=== PATIENT | female | born 1960 | race Caucasian/White ===

== ENCOUNTER 2019-11-05 10:24 | Outpatient (CLI) | payer MEDICARE, SELFPAY ==
--- NOTE | ~2019-11-05 | XR_ITS ---
EXAMINATION:XR_CERV2-3V_CR DATE: 11/05/2019 10:51 INDICATION: Neck pain and radiculopathy TECHNIQUE: AP, lateral, lateral swimmers and odontoid views of the cervical spine are provided. COMPARISON: None FINDINGS: There are 2 mm of retrolisthesis of C3 on C4. Vertebral body alignment is otherwise maintai ricky. There are changes of anterior fusion at C5-6 and C6-7. The odontoid is intact. No fracture is id entified. The vertebral body heights are normal. There is mild loss of intervertebral disc space heig ht at C3-4. Prevertebral soft tissues are normal. There is severe facet osteoarthritis at C3-4 and C4 -5. IMPRESSION: 1. Mild to moderate upper cervical spondylosis. 2. Changes of anterior fusion in the lower cervical spine. Reviewed, dictated and finalized at location A.
== END 2019-11-05 10:25 | disposition home or self-care (01) ==
PROVIDERS: PCP Physician Assistant; Visit Provider Physician Assistant
DX: M54.12 Radiculopathy, cervical region (principal)
CPT/HCPCS: 72040

== ENCOUNTER 2019-11-26 06:35 | Outpatient (CLI) | payer MEDICARE, SELFPAY ==
--- NOTE | ~2019-11-26 | MR_ITS ---
EXAMINATION: MR cervical spine wo con DATE: 11/26/2019 08:04 INDICATION: Cervical spinal stenosis. TECHNIQUE: Magnetic resonance imaging (MRI) of the cervical spine was performed without intravenous c ontrast. Sequences included sagittal T2-weighted FSE, sagittal T2-weighted FS FSE, sagittal T1-weight ed FSE, axial MERGE, and axial T2-weighted FSE. COMPARISON: Cervical spine radiographs 11/05/2019 FINDINGS: There is 2 mm retrolisthesis of C3 on C4. There are changes of anterior fusion procedure fr om C5 to C7. There is healed interbody bone graft at C5-C6. There is an anterior plate and screws at C6-C7. There is mildly decreased disc height at C3-C4. At C6, there is syringohydromyelia with diamet er of 1 mm. The following disc levels are specifically discussed: C2-C3: The disc does not extend beyond the endplate margin. There is no uncovertebral joint osteoarth ritis. There is moderate right and mild left facet joint osteoarthritis. There is no neural foraminal stenosis. There is no central canal stenosis. C3-C4: The disc is bulging. There is moderate right and mild left uncovertebral joint osteoarthritis. There is moderate right and severe left facet joint osteoarthritis. There is moderate right and mild left neural foraminal stenosis. There is mild central canal stenosis with ventral indentation of the spinal cord. C4-C5: The disc does not extend beyond the endplate margin. There is no uncovertebral joint osteoarth ritis. There is moderate right and severe left facet joint osteoarthritis. There is mild left neural foraminal stenosis. There is no central canal stenosis. C5-C6: There is no uncovertebral joint hypertrophy. There is no facet joint osteoarthritis. There is no neural foraminal stenosis. There is no central canal stenosis. C6-C7: There is mild bilateral uncovertebral joint hypertrophy. There is mild left facet joint osteoa rthritis. There is no neural foraminal stenosis. There is no central canal stenosis. C7-T1: The disc does not extend beyond the endplate margin. There is no uncovertebral joint osteoarth ritis. There is severe bilateral facet joint osteoarthritis. There is mild bilateral neural foraminal stenosis. There is no central canal stenosis. IMPRESSION: 1. Moderate cervical spondylosis. 2. Anterior fusion procedures from C5 to C7. 3. 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 Reviewed, dictated and finalized at location A.
== END 2019-11-26 06:36 | disposition home or self-care (01) ==
LOC: CHSIMG 06:37
PROVIDERS: PCP Physician Assistant; Visit Provider Physician Assistant
DX: M48.02 Spinal stenosis, cervical region (principal)
CPT/HCPCS: 72141

== ENCOUNTER 2019-12-24 13:49 | Outpatient (RCR) | payer MEDICARE, SELFPAY ==
--- NOTE | 2019-12-24 14:52 | PTOPEVAL ---
Thank you for referring Janice Chavez to [facility]– [place]. Please review, sign, date and return this plan of care SHAMIR. I agree with and certify that the following plan of care is medically necessary. Referring Physician Date Admitting Provider: Attending Provider: PHYSICIAN NOT ON STAFF Referring Provider: *PT Outpatient Evaluation Start: 12/24/19 13:59 Freq: Status: Active Protocol: Document 12/24/19 14:02 LUCÍA (Rec: 12/24/19 14:38 [facility] [id number]) Therapy Assessment Status Assessment Status Assessment Status Evaluation Evaluation Information Problem Diagnosis neck pain Onset 12/17/19 Subjective Information patient reports about 3 months Query Text:As Reported By Patient/ ago she began having pain and Family pins and needles in the jaw and down the neck into the R shoulder. she reports she had an injection yesterday. she reports pins and needles are back as of 3 hours post injection. she reports she is unaware of any activities or positions that create greater pain. she does reports leaning to her R side is worse and leaning to her L side helps relieve some of the symptoms. she reports she had a change in insurance and was not able to see her previous spinal MD. patient reports she has a headache that comes and goes. she reports only pain free position is laying on her L side. Prior Level of Function Comments Additional Prior Level of Function prior to 3 months ago, no Comments issues with the neck, but patient reports she did have back pain. she reports she is on disability. she reports she cares for a house and for her grandkid on a daily basis. Pain Assessment Timing of Pain Assessment Timing of Pain Assessment Assessment Pain Scale Pain Scale Used Numeric (1 - 10) Self Report Pain Assessment Right Neck Reported Pain Level 5 Pain Description Tingling Pain Frequency Acute,Continuous Lowest Pain Intensity 3 Greatest Pain Intensity 8
== END 2020-01-22 09:11 | disposition home or self-care (01) ==
LOC: CHSPT 13:49
DX: M54.2 Cervicalgia (principal)
CPT/HCPCS: 97014; 97110; 97140; 97161; G0283

== ENCOUNTER 2020-01-29 07:57 | Outpatient (RCR) | payer MEDICARE, SELFPAY ==
--- NOTE | 2020-01-29 16:49 | PTOPEVAL ---
Thank you for referring Janice Chavez to [facility] - [place].? The patient is scheduled to be seen for therapy? ____x/week for ___ weeks. Please review, sign, date and return this plan of care SHAMIR. I agree with and certify that the following plan of care is medically necessary. Referring Physician Date Admitting Provider: Attending Provider: Josue Jordan, PA Referring Provider: *PT Outpatient Evaluation Start: 01/29/20 08:01 Freq: Status: Active Protocol: Document 01/29/20 08:32 TOSHIA (Rec: 01/29/20 09:05 [facility] [email or web address]) Therapy Assessment Status Assessment Status Assessment Status Evaluation Evaluation Information Problem Diagnosis dorsalgia Onset 11/27/19 Subjective Information Pt. reports a hx of chronic Query Text:As Reported By Patient/ low back pain. she states Family that pain started several years ago and has hx of 2 lumbar fusions. She reports that she has been inactive as of recently, especially the past 2 months since her back pain has flared up. she reports that she cannot sleep at night. Pain is increased with any standing activity, and she cannot complete basic household duties. she reports her goal is to decrease her low back pain. Prior Level of Function Activity Level (Last 3 Months) Occupation disabled Hand Dominance Right Activity of Daily Living Ability Independent Indoor/Home Mobility Independent Community Mobility Independent Stairs Ability Independent Functional Cognition (Planning, Shopping Independent , Taking Medications) Cooking Yes Cleaning Yes Laundry Yes Shopping Yes Driving Yes Pain Assessment Pain Scale Pain Scale Used Numeric (1 - 10) Self Report Pain Assessment Lower Back Reported Pain Level 8 Pain Description Numbness,Sharp Pain Radiation Left Leg Pain Frequency Chronic,Continuous Pain Aggravating Factors Exercise/Activity,Walking, Weight Bearing/Standing Pain Behaviors Restless Pain Relief Interventions Used By Prema Patient Pain Score Pain Score 8: S
--- NOTE | 2020-02-26 12:47 | PCPTNOTE ---
Mrs. Chavez attended a total of 3 treatment sessions from 01/29/20 to 02/03/20. She has failed to return to the clinic and cannot be contacted via telephone. Refer to the last daily note for pt. discharge status. Thank you for the referral of this pt. Ashish Conley, MPT
== END 2020-02-03 17:09 | disposition home or self-care (01) ==
LOC: CHSPT 07:57
PROVIDERS: PCP Physician Assistant; Visit Provider Physician Assistant
DX: M54.9 Dorsalgia, unspecified (principal)
CPT/HCPCS: 97014; 97110; 97161; G0283

== ENCOUNTER 2020-03-11 08:02 | Outpatient (CLI) | payer MEDICARE, SELFPAY ==
--- NOTE | ~2020-03-11 | MR_ITS ---
EXAMINATION: MR lumbar spine wo/w con DATE: 03/11/2020 09:32 INDICATION: Lumbar radicular pain radiating to the left leg with numbness and tingling. TECHNIQUE: Magnetic resonance imaging (MRI) of the lumbar spine was performed without and with 20 mL MultiHance intravenous contrast. Sequences included sagittal T2-weighted FSE, sagittal T2-weighted FS FSE, and sagittal and axial T1-weighted FSE. Postcontrast sequences included axial T2-weighted FSE a nd axial and sagittal T1-weighted FS FSE. COMPARISON: Lumbar spine MRI 09/29/2018 FINDINGS: There is 13 degrees dextroscoliosis of lumbar spine. There is 3 mm retrolisthesis of L1 on L2 and 7 mm retrolisthesis of L2 on L3. There is 3 mm retrolisthesis of L5 on S1. There are changes o f anterior and posterior fusion procedures from L4 to S1 with interbody bone graft and pedicle screws . There is a chronic compression fracture of T12 with 1/5 loss of height. There is moderately decreas ed disc height at L1-L2 and severely decreased disc height at L2-L3. There are compression fractures of the inferior endplate of L2 and superior endplate of L3 on the left with less than 1/5 loss of hei ght, low signal fracture lines, and bone marrow edema. The distal spinal cord signal intensity is nor mal. The conus medullaris is at L1-L2. The following disc levels are specifically discussed: L1-L2: The disc is bulging. There is mild bilateral facet joint osteoarthritis. There is mild bilater al neural foraminal stenosis. There is mild central canal stenosis. L2-L3: The disc is bulging and has an annular fissure. There is moderate right and mild left facet robbie int osteoarthritis. There is moderate bilateral neural foraminal stenosis. There is mild central alana l stenosis with posterior decompression. L3-L4: The disc is mildly bulging. There is mild bilateral facet joint hypertrophy. There is mild elisa ateral neural foraminal stenosis. There is no central canal stenosis. L4-L5: There is no facet joint hypertrophy. There is mild right neural foraminal stenosis. There is n o central canal stenosis with posterior decompression. L5-S1: There is no facet joint hypertrophy. There is mild bilateral neural foraminal stenosis. There is no central canal stenosis with posterior decompression. IMPRESSION: 1. Compression fractures of the inferior endplate of L2 and superior endplate of L3, likely acute or subacute. 2. Severe lumbar spondylosis with interval worsening at L2-L3. 3. Anterior and posterior fusion procedures from L4 to S1. Reviewed, dictated and finalized at location A. IMPRESSION: 1. Compression fractures of the inferior endplate of L2 and superior endplate o f L3, likely acute or subacute. 2. Severe lumbar spondylosis with interval worsening at L2-L3. 3. Anterior and posterior fusion procedures from L4 to S1.
[2020-03-11 08:31] LABS: Estimated Glomerular Filt Rate 56
== END 2020-03-11 08:03 | disposition home or self-care (01) ==
LOC: CHSIMG 08:05
PROVIDERS: Pain Medicine Pain Medicine; PCP Physician Assistant
DX: M54.16 Radiculopathy, lumbar region (principal)
CPT/HCPCS: 72158; A9577

== ENCOUNTER 2020-05-07 09:58 | Outpatient (CLI) | payer MEDICARE, SELFPAY ==
--- NOTE | ~2020-05-07 | CT_ITS ---
EXAMINATION: CT cervical spine wo con DATE: 05/07/2020 10:24 INDICATION: Neck pain. Right arm and shoulder numbness and tingling. TECHNIQUE: Computed tomography (CT) of the cervical spine was performed without intravenous contrast. Automated exposure control and iterative reconstruction technique were employed. The dose-length pro duct was 495.45 mGy-cm. COMPARISON: Cervical spine MRI 11/26/2019 FINDINGS: There is 3 degrees dextrocurvature of cervical spine. There are changes of anterior fusion procedure at C5-C6 with discectomies and healed interbody bone graft. There are changes of anterior f usion procedure at C6-C7 with discectomy, interbody bone graft, and anterior plate and screws. There is no definite bridging interbody bone. There is a benign bone island in C3 vertebral body. Vertebral body heights are normal. There is mildly decreased disc height at C3-C4. The following disc levels a re specifically discussed: C2-C3: There is no uncovertebral joint osteoarthritis. There is severe bilateral facet joint osteoart hritis. There is no neural foraminal stenosis. There is no central canal stenosis. C3-C4: There is severe right and mild left uncovertebral joint osteoarthritis. There is severe bilate ral facet joint osteoarthritis. There is mild bilateral neural foraminal stenosis. There is no centra l canal stenosis. C4-C5: There is mild bilateral uncovertebral joint osteoarthritis. There is severe bilateral facet robbie int osteoarthritis. There is mild left neural foraminal stenosis. There is no central canal stenosis. C5-C6: There is no uncovertebral joint hypertrophy. There is no facet joint osteoarthritis. There is no neural foraminal stenosis. There is no central canal stenosis. C6-C7: There is mild bilateral uncovertebral joint hypertrophy. There is mild bilateral facet joint o steoarthritis. There is no neural foraminal stenosis. There is no central canal stenosis. C7-T1: There is no uncovertebral joint osteoarthritis. There is severe bilateral facet joint osteoart hritis. There is mild left neural foraminal stenosis. There is no central canal stenosis. IMPRESSION: 1. Anterior fusion procedures from C5 to C7 with bridging interbody bone at C5-C6, but not at C6-C7. 2. Moderate cervical spondylosis. Reviewed, dictated and finalized at location A. T DESIGNER IMPRESSION: 1. Anterior fusion procedures from C5 to C7 with bridging interbody bone at C5- C6, but not at C6-C7. 2. Moderate cervical spondylosis.
== END 2020-05-07 09:59 | disposition home or self-care (01) ==
LOC: CHSIMG 10:02
PROVIDERS: PCP Physician Assistant; Visit Provider Nurse Practitioner Acute Care
DX: M54.2 Cervicalgia (principal)
CPT/HCPCS: 72125

== ENCOUNTER 2020-06-11 12:34 | Outpatient (CLI) | payer MEDICARE, SELFPAY ==
--- NOTE | ~2020-06-11 | DEXA_ITS ---
Bone Density Report Name: Janice Chavez Age: 59 Sex: Female Ethnicity: White Date of : 1960 Indication: postmenopausal; screening for osteoporosis; prior fracture; hysterectomy; Referring Provider: Nikki, Josue Duarte Study: Bone densitometry was performed. Exam Date: June 11, 2020 Accession number: [id number] Bone Density: Region BMD T-score Z-score Classification Femoral Neck (Right) 0.843 -0.1 1.3 Normal Total Hip (Right) 0.826 -0.9 0.1 Normal World Health Organization criteria for BMD impression classify patients as: Normal (T-score at or above -1.0), Osteopenia (T-score between -1.0 and -2.5), or Osteoporosis (T-score at or below -2.5). Clinical Information Provided by Patient: Have had a previous hip or vertebral fracture Has had a low trauma fracture Has used the following medications: Vitamin D, Calcium Has the following medical conditions: Hysterectomy Patient maximum height was 66 Menopause Age: 33 No regular weight bearing exercise Drinks caffeinated beverages Onset of menses at age 10 Number of children 2 Impression: The patient has normal bone mass. The patient has risk factors, including: previous fracture. Discussion: INCREASED RISK OF FRACTURE DUE TO HISTORY OF FRACTURE. The patient's previous fracture puts the patient at high risk of a future fracture. In untreated patients, the risk of osteoporotic fracture increases approximately two-fold for each 1.0 SD decrease in T-score. Low bone density is not the only risk factor for fracture; also consider factors such as patient's age, frailty or poor health, risk of falling, risk of injury, previous osteoporotic fracture, family history of osteoporosis, cigarette smoking, low body weight, etc. Not everyone with a low trauma fracture has osteoporosis; osteomalacia and other metabolic bone disorders should also be considered. Patients who have osteoporosis should be evaluated for specific diseases and conditions (secondary causes) that may cause or contribute to bone loss and fracture risk. National Osteoporosis Foundation (NOF) recommends pharmacologic intervention for patients with a prior hip or vertebral fracture regardless of BMD T-score. The patient should follow a healthful lifestyle (good nutrition with adequate calcium and vitamin D, and appropriate weight-bearing exercise). Follow-Up: Consider a repeat BMD and Vertebral Fracture Assessment (VFA) exam in 2 years or sooner if medically necessary, to reassess this patient's status. Reported by: Dr. Devan Mancilla on 06/11/2020 1:40:00 PM. Reviewed, dictated and finalized at location A. [facility]
== END 2020-06-11 12:35 | disposition home or self-care (01) ==
LOC: CHSIMG 12:35
PROVIDERS: PCP Physician Assistant; Visit Provider Physician Assistant
DX: Z78.0 Asymptomatic menopausal state (principal)
CPT/HCPCS: 77080

== ENCOUNTER 2020-06-16 12:18 | Outpatient (CLI) | payer MEDICARE, SELFPAY ==
--- NOTE | ~2020-06-16 | MM_ITS ---
EXAMINATION: MM screening alex BI w nancy HISTORY: Screening TECHNIQUE: Craniocaudal and mediolateral oblique 3-D tomosynthesis images were obtained and synthetic 2-D images were generated. CAD analysis was submitted and interpreted. COMPARISON: No prior mammogram is available for comparison at this institution. BREAST PARENCHYMAL COMPOSITION: There are scattered areas of fibroglandular density. FINDINGS: There is no evidence of suspicious mass, calcification, or architectural distortion to sugg est malignancy in either breast. There has been no suspicious interval change. IMPRESSION: 1. No mammographic evidence of malignancy. 2. Recommend routine screening mammography in one year. BI-RADS Category 1: Negative Reviewed, dictated and finalized at location A. ATION COMMISSIONER
== END 2020-06-16 12:19 | disposition home or self-care (01) ==
LOC: CHSIMG 12:18
PROVIDERS: PCP Physician Assistant; Visit Provider Physician Assistant
DX: Z12.31 Encounter for screening mammogram for malignant neoplasm of breast (principal)
CPT/HCPCS: 77063; 77067

== ENCOUNTER 2020-09-01 08:42 | Outpatient (CLI) | payer MEDICARE, SELFPAY ==
--- NOTE | ~2020-09-01 | XR_ITS ---
EXAMINATION:XR_CERV2-3V_CR DATE: 09/01/2020 09:07 INDICATION: Cervicalgia TECHNIQUE: AP, lateral, and odontoid views of the cervical spine are provided. COMPARISON: 11/05/2019 FINDINGS: There are changes of interval anterior fusion at C3-4. There are chronic changes of anterio r fusion at C5-6 and C6-7. There are 3 mm of retrolisthesis of C3 on C4. There is mild loss of interv ertebral disc space height at C4-5. The odontoid is intact. No fracture is identified. There is sever e facet osteoarthritis. IMPRESSION: 1. Changes of interval anterior fusion at C3-4 and 3 mm of retrolisthesis of C3 on C4, otherwise no c hange. Reviewed, dictated and finalized at location B. IMPRESSION: 1. Changes of interval anterior fusion at C3-4 and 3 mm of retrolisthesis of C3 on C4, otherwise no change.
== END 2020-09-01 08:43 | disposition home or self-care (01) ==
LOC: CHSIMG 08:47
PROVIDERS: PCP Physician Assistant; Visit Provider Neurological Surgery
DX: M54.2 Cervicalgia (principal); Z98.1 Arthrodesis status
CPT/HCPCS: 72040

== ENCOUNTER 2020-09-29 09:38 | Outpatient (CLI) | payer MEDICARE, SELFPAY ==
--- NOTE | ~2020-09-29 | XR_ITS ---
EXAMINATION: XR hip RT 2V w AP pelvis DATE: 09/29/2020 09:56 INDICATION: Right hip catching feeling TECHNIQUE: Anteroposterior view of the pelvis and anteroposterior and frog-leg lateral views of the r ight hip were obtained. COMPARISON: None. FINDINGS: Normal alignment at the right hip. No fracture or suspected avascular necrosis. Right hip joint space is relatively preserved with tiny marginal osteophytes about the right femoral head and acetabulum. Bilateral sacroiliac joint spaces are normal. Partially visualized noncemented left total hip arthrop lasty which is in near-anatomic alignment. L5 laminectomy and partial L4 laminectomy. Combined instru mented anterior and posterior spinal fusion at L4-L5 and L5-S1 with interbody bone graft cages and bi lateral vertical luis and pedicle screw fixation. L3 vertebroplasty. IMPRESSION: 1. Mild right hip osteoarthritis with tiny marginal osteophytes but relatively preserved joint space. Reviewed, dictated and finalized at location A.
== END 2020-09-29 09:39 | disposition home or self-care (01) ==
LOC: CHSIMG 09:43
PROVIDERS: PCP Physician Assistant; Visit Provider Orthopaedic Surgery
DX: M25.551 Pain in right hip (principal)
CPT/HCPCS: 73502

== ENCOUNTER 2020-10-06 09:54 | Outpatient (RCR) | payer MEDICARE, SELFPAY ==
--- NOTE | 2020-10-06 12:29 | PTOPEVAL ---
Thank you for referring Janice Chavez to [facility].? The patient is scheduled to be seen for therapy? ____x/week for ___ weeks. Please review, sign, date and return this plan of care SHAMIR. I agree with and certify that the following plan of care is medically necessary. Referring Physician Date Admitting Provider: Attending Provider: Jas Gutierrez MD Referring Provider: *PT Outpatient Evaluation Start: 10/06/20 10:11 Freq: Status: Active Protocol: Document 10/06/20 10:00 Geeta (Rec: 10/06/20 11:38 [facility] [id number]) Therapy Assessment Status Assessment Status Assessment Status Evaluation Evaluation Information Problem Diagnosis R hip OA Onset 09/29/20 Additional Evaluation Detail LEFS = 72% functionally declined Subjective Information Janice Chavez is a 59 year old Query Text:As Reported By Patient/ female who presents to the Family clinic with increased R hip pain. She was diagnosed with hip OA after a recent xray order by her referring physician. She has been diagnosed with OA in multiple other joints in the past including her left hip which has had a CELIA in the past. Patient wishes to have another CELIA performed in her L hip but is trying therapy before a more invasive option is decided on. She has not had any injections in her right hip as of this date. Patient wishes to be able to walk 2 blocks to the bookstore near her apartment and back home. She lives alone in her apartment with her 7 month old puppy and reports difficulty ambulating in her home and ascending/descending stairs to enter her home. She reports taking 4 tylenols prior to coming to therapy this morning . Prior Level of Function Comments Additional Prior Level of Function Patient is no longer working, Comments but wishes to ambulate in her home with decreased pain, and ambulate further in the
== END 2020-11-04 09:39 | disposition home or self-care (01) ==
LOC: CHSPT 09:54
PROVIDERS: PCP Physician Assistant; Visit Provider Orthopaedic Surgery
DX: M16.11 Unilateral primary osteoarthritis, right hip (principal)
CPT/HCPCS: 97014; 97110; 97161; 97530; G0283

== ENCOUNTER 2020-10-27 12:47 | Outpatient (CLI) | payer MEDICARE, SELFPAY ==
--- NOTE | ~2020-10-27 | XR_ITS ---
EXAMINATION: XR_CERV2-3V_CR DATE: 10/27/2020 13:35 INDICATION: Neck pain. TECHNIQUE: 3 views of cervical spine were obtained. COMPARISON: Cervical spine radiographs 09/01/2020 FINDINGS: There is 3 mm retrolisthesis of C3 on C4. There are changes of anterior fusion procedure at C3-C4 with discectomy, interbody bone graft, and anterior plate and screws. There is a solidly heale d interbody fusion at C5-C6. There are changes of anterior fusion procedure at C6-C7 with discectomy, interbody bone graft, and anterior plate and screws. Other intervertebral disc heights are normal. T here is mild central canal stenosis at C3-C4. There is multilevel facet joint osteoarthritis, severe at C6-C7 and C7-T1. IMPRESSION: 1. Stable mild cervical spondylosis. 2. Anterior fusion procedures at C3-C4 and from C5 to C7. Reviewed, dictated and finalized at location A.
== END 2020-10-27 12:48 | disposition home or self-care (01) ==
PROVIDERS: PCP Physician Assistant; Visit Provider Neurological Surgery
DX: M54.2 Cervicalgia (principal); Z98.1 Arthrodesis status
CPT/HCPCS: 72040

== ENCOUNTER 2020-12-22 10:29 | Outpatient (CLI) | payer MEDICARE, SELFPAY ==
[2020-12-22 11:12] LABS: Alanine Aminotransferase 24 U/L (14-59); Albumin Level 3.4 g/dL (3.4-5.0); Alkaline Phosphatase 111 U/L (46-116); Anion Gap 11 mmol/L (8-16); Aspartate Amino Transferase 14 U/L (15-37); Bilirubin,Total 0.2 mg/dL (0.00-1.00); Blood Urea Nitrogen 10 mg/dL (7-18); Calcium 8.9 mg/dL (8.5-10.1); Carbon Dioxide 27 mmol/L (21-32); Chloride 104 mmol/L (98-108); Estimated Glomerular Filt Rate > 60; Glucose 100 mg/dL (70-99); Lipase 67 U/L (73-393); Osmolality Calculated 293 mOsm/kg (285-295); Potassium 4.8 mmol/L (3.5-5.1); Sodium 142 mmol/L (136-145); Total Protein 7.5 g/dL (6.4-8.2)
== END 2020-12-22 10:30 | disposition home or self-care (01) ==
PROVIDERS: PCP Physician Assistant
DX: R11.0 Nausea (principal)
CPT/HCPCS: 36415; 80053; 83690

== ENCOUNTER 2020-12-22 12:33 | Emergency (ER) | payer MEDICARE, SELFPAY ==
[2020-12-22 12:50] VITALS: BP 110/61; PULSE 85; RESP 20; TEMP 36.6; O2SAT 95
--- NOTE | 2020-12-22 12:52 | ED.GENADULT ---
HPI - General Adult General Chief complaint: Recheck/Abnormal Lab/Rx Stated complaint: took double of her meds Source: patient and RN notes reviewed Mode of arrival: ambulatory Limitations: no limitations History of Present Illness HPI narrative: Patient states she accidentally took another dose of her daily medications including bupropion, atenolol 50 mg, pantoprazole, amlodipine 5 mg. she is concerned that her blood pressure might drop out. She has no other complaints. She denies being dizzy, short of breath , or lightheaded. Onset (ago): minute(s) (30) Associated symptoms: denies other symptoms Related Data Home Medications Medication Instructions Recorded Confirmed amlodipine 5 mg tablet 5 mg PO DAILY 09/29/20 12/22/20 atenolol 50 mg tablet 50 mg PO DAILY 09/29/20 12/22/20 bupropion HCl 300 mg 24 hr tablet, 300 mg PO QAM 09/29/20 12/22/20 extended release pantoprazole 40 mg PO DAILY 12/22/20 12/22/20 Allergies Allergy/AdvReac Type Severity Reaction Status Date / Time tetracycline Allergy Unknown Unknown Verified 12/22/20 09:48 Review of Systems Review of Systems: All systems reviewed & are unremarkable except as noted in HPI and below PMFSH Past Medical History Medical History Arthritis Degenerative joint disease of left hip Depression Fibromyalgia History of MRSA infection Hypertension Pain of left hip joint Surgical History Surgical History History of cervical spinal surgery History of kyphoplasty History of total left hip arthroplasty History of total left knee replacement Family History Family History Other Asthma Depression Diabetes mellitus Family history of arthritis Heart disease Hypertension Kidney disorder Social History Social History Smoking packs per day: 1 Smoking cigarettes per day: 20.0 Years smoked: 10 Smoking pack-years: 10.00 Smoking end date: 05/22/09 Alcohol intake: current Alcohol use details: 3-4 per year Substance use: current Substance use type: marijuana Additional occupation/education comments: disabled Gender identity (if verbalized by the patient): Female Exam Const: General: healthy appearing and no acute distress Nutritional Appearance: well nourished and obese centrally obese Orientation/consciousness: patient oriented x3 HENMT: Head: normal to inspection Ears: external ears normal Eyes: Conjunctivae: conjunctivae normal Pupils: Equal, round and reactive pupils present EOM: EOMs intact bilaterally Neck: Neck: normal visual inspection and no lymphadenopathy Resp: Effort & Inspection: normal respiratory effort Auscultation: clear to auscultation bilaterally Cardio: Rate: regular rate Rhythm: regular rhythm GI: GI Palp: Yes Soft to palpation Auscultation: normal bowel sounds Back/Spine/Pelvis: Cervical Spine: cervical ROM normal Thoracic/Lumbar Spine: thoraco-lumbar ROM normal Skin: General skin exam: normal color Rashes: no rashes Neuro: General: patient oriented x3, moves all extremities, no meningeal signs and no focal motor deficits Speech: normal speech Gait exam (Neuro): Normal gait present Extrem: General: normal to inspection and no clubbing, cyanosis or edema Psych: Appearance: grossly normal and well kempt Mental Status: mental status grossly normal Affect: normal affect Attitude: cooperative Thought content: Yes Normal thought content present Course Course Emergency Course: patient reassured that at the doses that she is currently taking should not cause her any significant problems with her blood pressure today. she should continue with her regular dose of medication tomorrow. Vital Signs Vital signs: Vital Signs Temperature 36.6 C 12/22/20 12:50 Pulse Rate 85 08/
[2020-12-22 13:14] VITALS: BP 109/71; PULSE 84; RESP 20; O2SAT 96
== END 2020-12-22 13:15 | disposition home or self-care (01) ==
PROVIDERS: Emergency Provider Emergency Medicine; PCP Physician Assistant
DX: Z79.899 Other long term (current) drug therapy (principal)
CPT/HCPCS: 36415; 80053; 83690; 99281; 99282

== ENCOUNTER 2020-12-29 08:06 | Outpatient (CLI) | payer MEDICARE, SELFPAY ==
--- NOTE | ~2020-12-29 | XR_ITS ---
EXAMINATION: XR lg joint inject/aspiration DATE: 12/29/2020 09:21 INDICATION: Right hip osteoarthritis TECHNIQUE: A time-out was performed to verify the patient's name, date of , and procedure to b e performed. The procedure including the risks and benefits was discussed with the patient. Risks dis cussed included bleeding and infection. The patient understood the risks and agreed to proceed. The s kin overlying the right hip joint was prepared and draped in usual sterile fashion. The skin and subc utaneous tissues were infiltrated with 1% lidocaine for local anesthesia. A 22 G needle was advanced under fluoroscopic guidance into the joint. Injectate consisting of 80 mg of methylprednisolone, 2 cc of bupivacaine and 5 cc of Omnipaque 350 was instilled. The needle was removed and the entry site w as cleaned and dressed. There were no immediate complications. Fluoroscopy exposure time was 0.5 min utes. The DAP for this procedure was 3.126 Gycm2. FINDINGS: Real-time fluoroscopy demonstrates the needle in the right hip joint. Patient's pain prior to procedure:6/10. Patient's pain following the procedure: 10. IMPRESSION: 1. Successful right hip injection of local anesthetic and steroid. Reviewed, dictated and finalized at location B.
== END 2020-12-29 08:07 | disposition home or self-care (01) ==
LOC: CHSIMG 08:11
PROVIDERS: PCP Physician Assistant; Visit Provider Orthopaedic Surgery
DX: M16.11 Unilateral primary osteoarthritis, right hip (principal)
CPT/HCPCS: 20610; J1030; Q9965

== ENCOUNTER 2021-06-21 11:41 | Outpatient (CLI) | payer MEDICARE, MEDICAID, SELFPAY ==
--- NOTE | 2021-06-21 12:34 | ECG_ITS ---
Measurements Intervals [place] Rate: 74 P: 10 CO: 158 QRS: 1 QRSD: 88 T: 12 QT: 384 QTc: 429 Interpretive Statements SINUS RHYTHM EARLY PRECORDIAL R/S TRANSITION BORDERLINE T WAVE ABNORMALITY- INFERIOR LEADS BORDERLINE ECG Electronically Signed On 06-21-2021 12:53:51 BOARDING SPECIALIST by Jimmy High D.O.
[2021-06-21 13:07] LABS: Basophils Absolute Auto 0.1 K/mm3 (0.0-0.1); Basophils Percent Auto 0.8 % (0.2-1.2); Eosinophils Absolute Auto 0.2 K/mm3 (0-0.3); Eosinophils Percent Auto 1.8 % (0-4.4); Hematocrit 42.1 % (37.0-47.0); Hemoglobin 14.3 g/dL (12.0-15.0); Immature Granulocyte Absolute 0.02 K/mm3 (0.00-0.031); Immature Granulocyte Percent A 0.2 % (0-0.5); Lymphocytes Absolute Auto 1.93 K/mm3 (0.9-3.2); Lymphocytes Percent Auto 22.7 % (18.3-44.2); Mean Corpuscular Hemoglobin 28.8 pg (26-34); Mean Corpuscular Volume 84.7 fl (80-100); Monocytes Absolute Auto 0.4 K/mm3 (0.1-0.6); Monocytes Percent Auto 4.8 % (2.6-8.5); Neutrophils Absolute Auto 5.9 K/mm3 (1.3-6.7); Neutrophils Percent Auto 69.7 % (45.5-73.1); Platelet Count Result 253 k/mm3 (150-375); Red Blood Count 4.97 M/mm3 (4.2-5.4); Red Cell Distribution Width 13.6 % (11.5-14.5); White Blood Count 8.5 K/mm3 (4.5-10.0)
[2021-06-21 13:09] LABS: Add Urine Microscopic? NO; Appearance Urine Clear (Clear); Bilirubin Urine Negative (Negative); Blood Urine Negative (Negative); Color Urine Straw (Yellow); Glucose Urine UA Negative (Negative); Ketones Urine Negative (Negative); Leukocyte Esterase Ur Negative LEU/UL (Negative); Nitrate Urine Negative (Negative); Protein Urine Negative (Negative); Urobilinogen Urine Negative mg/dL (<2.0)
[2021-06-21 13:11] LABS: Specific Grav Ur 1.003 (1.001-1.035); Urine Cotinine NEGATIVE
[2021-06-21 13:19] LABS: Albumin Level 4.3 g/dL (3.5-5.1); Anion Gap 6 mmol/L (8-16); Blood Urea Nitrogen 9 mg/dL (7-17); Calcium 9.2 mg/dL (8.4-10.2); Carbon Dioxide 24 mmol/L (22-30); Chloride 106 mmol/L (98-107); Estimated Glomerular Filt Rate > 60; Glucose 108 mg/dL (65-110); Potassium 4.1 mmol/L (3.4-5.0); Sodium 136 mmol/L (137-145)
[2021-06-21 13:30] LABS: Hemoglobin A1C 5.4 % (<5.7)
[2021-06-21 13:31] LABS: Prothrombin Time 12.8 Seconds (11.1-14.7)
== END 2021-06-21 11:42 | disposition home or self-care (01) ==
PROVIDERS: PCP Physician Assistant; Visit Provider Orthopaedic Surgery
DX: Z01.818 Encounter for other preprocedural examination (principal); M16.9 Osteoarthritis of hip, unspecified
CPT/HCPCS: 80048; 80307; 81003; 82040; 83036; 85025; 85610; 85730; 87081; 93005

== ENCOUNTER 2021-07-05 14:36 | Outpatient (CLI) | payer MEDICARE, MEDICAID, SELFPAY ==
--- NOTE | ~2021-07-05 | MM_ITS ---
EXAMINATION: MM screening alex BI w nancy HISTORY: Screening TECHNIQUE: Craniocaudal and mediolateral oblique 3-D tomosynthesis images were obtained and synthetic 2-D images were generated. CAD analysis was submitted and interpreted. COMPARISON: Comparison to multiple prior studies sequentially, with oldest reviewed study dated 06/16. BREAST PARENCHYMAL COMPOSITION: Breast composed of scattered areas of fibroglandular density FINDINGS: There is no evidence of suspicious mass, calcification, or architectural distortion to sugg est malignancy in either breast. There has been no suspicious interval change. IMPRESSION: 1. No mammographic evidence of malignancy. 2. Recommend routine screening mammography in one year. BI-RADS Category 1: Negative Reviewed, dictated and finalized at location A. B CONSULTANT
== END 2021-07-05 14:37 | disposition home or self-care (01) ==
LOC: CHSIMG 14:39
PROVIDERS: PCP Physician Assistant; Visit Provider Obstetrics & Gynecology
DX: Z12.31 Encounter for screening mammogram for malignant neoplasm of breast (principal)
CPT/HCPCS: 77063; 77067

== ENCOUNTER 2021-07-07 14:03 | Inpatient (IN) | payer MEDICARE, MEDICAID, SELFPAY ==
[2021-06-21 11:58] VITALS: BP 120/82; PULSE 82; RESP 20; TEMP 36.9; O2SAT 98; BMI 38.0
--- NOTE | 2021-06-21 12:10 | PC.NURSE ---
Report to the Outpatient Waiting Room, entrance under the green pavilion located off [facility], at time _0600__ on date _07/07/21_. OR Time: _0730___. - You and your visitor will be asked a series of questions to screen for COVID 19 for your protection. - A mask is required within the hospital. - NO visitors are allowed at this time. Preoperative COVID Testing Requirements: No COVID Test needed if: (proof is required; if not received patient will have Rapid Test prior to entry) - Patient has received COVID Vaccine at least 14 days prior to procedure date or - Patient has positive COVID test result within last 90 days of surgery date. COVID Test needed if above criteria is not met If not COVID vaccinated a COVID test must be conducted within 72 hours of surgery and patient is asked to isolate self from time of testing until procedure. You will go to the [facility] for your COVID testing. The [facility] site is located at the corner of [address] [facility]. You will only be called if COVID results are positive and your surgeon may reschedule your elective surgery date. Patients may have clear liquids (water, carbonated beverages, clear teas, apple juice) until 3 hours prior to surgery with a maximum of 20 ounces. (0430 AM) - No food from midnight until time of surgery Take the following medications with a SIP of water the morning of surgery: _AMLODIPINE, ATENOLOL, BUPROPION, TYLENOL #4 & GABAPENTIN IF NEEDED FOR PAIN_ Medications to discontinue per ANESTHESIA - _CALCIUM, 3 DAYS PRIOR TO SURGERY__ Date to take last dose__07/03/21___ Please no make-up, nail portuguese, hairspray, perfume, deodorant, or body powder the day of surgery. No jewelry (including any body piercings) or valuables the day of surgery, leave them at home. Please take a shower or bath the night before, or the morning of, surgery with an antibacterial soap. Wear comfortable, loose fitting clothing. Children are encouraged to wear pajamas. - Jewelry must be removed prior to entering the operating room. Rings and piercings that are not removed may be cut off. - The hospital will not accept responsibility for valuables. - Please leave all valuables, including medications, at home the day of surgery. If you are going home after surgery, a licensed horse and wagon driver must drive you home. - NO public transportation without another adult. - We recommend that an adult stay with you for 24 hours following discharge. - We also recommend that you do not drive, make important decision, drink alcoholic beverages, or take any drugs that were not prescribed by your health care provider for at least 24 hours after your discharge time. Follow any additional instructions given to you from your surgeon. Telephone instructions given to ____PT and asked if any additional questions and then verbalized understanding. Patient advised to call surgeon office or pre surgery nurse liaison [phone] if any additional questions.
--- NOTE | 2021-07-06 16:13 | WPDANESEPPF ---
Anes - Initial Pre Proc Eval Procedure: Operation Date: 07/07/21 07:30 Proposed Procedures p Right Total Hip Arthroplasty - Jas Gutierrez MD Date/Time: 07/06/21 16:13 Surgeon: Jas Gutierrez MD Pre Op Diagnosis: Rt Hip DJD Patient Data Age: 60 Gender: F Height: 1.65 m Weight: 103.6 kg Last Vital Signs Temp 36.9 C 06/21/21 11:58 Pulse 82 06/21/21 11:58 Resp 20 06/21/21 11:58 BP 120/82 06/21/21 11:58 Pulse Ox 98 06/21/21 11:58 Allergies Allergy/AdvReac Type Severity Reaction Status Date / Time tetracycline Allergy Unknown Rash Verified 07/07/21 05:58 Home Medications Medication Instructions Recorded Confirmed Type amlodipine 5 mg tablet 5 mg PO QAM 09/29/20 07/07/21 History atenolol 50 mg tablet 50 mg PO QA 09/29/20 07/07/21 History bupropion HCl 300 mg 24 hr tablet, 300 mg PO QAM 09/29/20 07/07/21 History extended release pantoprazole 40 mg PO QAM 12/22/20 07/07/21 History acetaminophen-codeine 1 tablet TID PRN 06/21/21 07/07/21 History calcium carbonate-vitamin D3 1 tablet PO QAM 06/21/21 07/07/21 History [Calcium + D] gabapentin 600 mg TID PRN 06/21/21 07/07/21 History ondansetron 8 mg PO Q12H PRN 06/21/21 07/07/21 History oxybutynin chloride 10 mg PO QAM 06/21/21 06/21/21 History mupirocin 2 % topical ointment 1 applic TOPICAL BID #15 g 06/23/21 07/07/21 Rx Patient hx anesthesia problems: none Family hx anesthesia problems: none Results Review: All pre-operative results and documents have been reviewed as part of the pre-operative evaluation. [facility] Past Medical History Medical History Arthritis Degenerative joint disease of left hip Depression Fibromyalgia History of MRSA infection Hypertension Pain of left hip joint Surgical History Surgical History History of cervical spinal surgery History of kyphoplasty History of total left hip arthroplasty Family History Family History Other Asthma Depression Diabetes mellitus Family history of arthritis Heart disease Hypertension Kidney disorder Social History Social History Smoking packs per day: 1 Smoking cigarettes per day: 20.0 Years smoked: 10 Smoking pack-years: 10.00 Tobacco type: cigarettes Second hand tobacco smoke exposure: Yes (STATES OCCASIONALLY, BUT TRIES TO AVOID IT) Smoking end date: 05/22/09 Additional smoking assessment comments: PT DENIES ALL FORMS OF TOBACCO USE Alcohol intake: current Alcohol use details: 3-4 per year Substance use: current Substance use type: marijuana Other substance usage details: DAILY Last use: 06/21/21 AM Living arrangements: alone Additional occupation/education comments: disabled Gender identity (if verbalized by the patient): Female Spiritual care concerns: No Anes - Eval Final PreProcedure Day of Procedure 07/06/21 16:13 Patient weight: obese Heart: regular rate and rhythm Lungs: clear to auscultation and normal air movement Airway: Mallampati scale class II Neurological: alert and oriented Last oral intake: >/= 8 hours ASA classification: III Emergent: no Anesthetic plan: proceed Anesthesia type and monitoring: general ETT Results Review: All pre-operative results and documents have been reviewed as part of the pre-operative evaluation. Informed Consent: The patient's anesthetic plan and its attendant risks and benefits were discussed with the patient/family/POA. Questions were solicited and answers provided to the satisfaction of the patient/family/POA.
[2021-07-07] VITALS (17 sets, daily range): BP systolic 96–135; BP diastolic 60–83; PULSE 68–90; RESP 16–22; TEMP 35.8–36.8; O2SAT 95–100; BMI 37.1
--- NOTE | ~2021-07-07 | XR_ITS ---
XR hip RT 1V DATE: 07/07/2021 12:11 INDICATION: Right total hip replacement TECHNIQUE: Postoperative AP view COMPARISON: 03/29/2021 right hip FINDINGS: Skin lila are noted along the lateral aspect of the right hip. There is right total hip arthroplasty, with normal-appearing alignment of the acetabular and femoral components on this single AP view. Hardware from lumbosacral posterior surgical fusion is noted, in addition to probable interbody spina l fusion at L4-5 and L5-S1. IMPRESSION: Status post right hip arthroplasty Reviewed, dictated and finalized at location B. RTATION EXAMINER
--- NOTE | ~2021-07-07 | XR_ITS ---
XR surgery orthopedic DATE: 07/07/2021 10:32 INDICATION: Right total hip replacement TECHNIQUE: Single intraoperative view of pelvis, right hip COMPARISON: July 07, 2021 right hip is not available from the archive 03/29/2021 right hip FINDINGS: There is surgical resection of the right femoral head and neck. There is an acetabular pros thesis in the acetabular fossa. There is a trocar in the right femur. 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 Status post left total hip arthroplasty. IMPRESSION: Operative right hip replacement Reviewed, dictated and finalized at Location A. Reviewed, dictated and finalized at location B. CAL INSURANCE COLLECTOR
[2021-07-07] MEDS: TRANEXAMIC ACID 1,000MG/ISO100 1,000 MG/100 ML BAG 200 MG IVPB (06:39)
[2021-07-07] MEDS: LACTATED RINGERS 1,000 ML 30 ML IV CONT ×2 (06:39→11:53)
[2021-07-07] MEDS: ACETAMINOPHEN 500 MG TABLET 1000 MG PO (06:40)
--- NOTE | 2021-07-07 07:28 | SUR.PREOP ---
MARA PUMP HOUSE ENGINEER SPOKE TO DR MENDOZA REGARDING POSITIVE MRSA SCREEN. DOCUMENT STATES OFFICE NOTIFIED 06/24/21. HE GAVE PHONE ORDER FOR VANCOMYCIN IVPB
--- NOTE | 2021-07-07 07:33 | WPDHPUPDATE1 ---
History and Physical Update Update Date/Time: 07/07/21 07:33 History and Physical has been reviewed, including an updated exam of the patient. There are NO changes in the patient's condition. Risks, benefits, and alternatives have been discussed and questions answered. Patient agrees to proceed with procedure.
[2021-07-07] MEDS: ceFAZolin 2 GM/D5W 50 ML 2 GM/50 ML BAG IVPB ×2 (07:40→18:04)
[2021-07-07] MEDS: TRANEXAMIC ACID 1,000 MG/10 ML AMPUL 1000 MG IV PUSH (10:47)
[2021-07-07] MEDS: ceFAZolin SODIUM 1 GM VIAL 2 GM IV PUSH (11:37)
--- NOTE | 2021-07-07 12:12 | W.PM.PROC2 ---
Procedure Note - Detailed Date of Procedure 07/07/21 Pre-op Diagnosis Rt Hip DJD Post-op Diagnosis same Procedure Performed R CELIA Surgeon Jas Gutierrez MD Anesthesia general Description of Procedure THE PATIENT WAS TAKEN TO THE OPERATING ROOM IN STABLE CONDITION AND WAS PLACED IN THE LATERAL DECUBITUS AND THE RIGHT LOWER EXTREMITY WAS PREPPED AND DRAPED IN THE STERILE FASHION. INCISION WAS MADE IN THE POSTERIOR LATERAL SIDE OF THE HIP, DOWN TO THE FASCIA LAYER. THE FASCIA WAS INCISED. THE HIP WAS EXPOSED. THE SHORT EXTERNAL ROTATORS WERE EXPOSED. THE SCIATIC NERVE WAS IDENTIFIED. THERE WAS A HIGH BIFURCATION OF THE NERVE. INCISION WAS MADE THROUGH THE SORT EXTERNAL ROTATORS AND THE CAPSULE OF THE HIP JOINT. THE HIP WAS DISLOCATED. AN OSTEOTOMY WAS MADE TO THE FEMORAL NECK ABOUT 1 CM PROXIMAL TO THE LESSER TROCHANTER. THE ACETABULUM WAS EXPOSED. THERE WAS SEVERE DJD SEEN. BEGINNING WITH A 44 REAMER THE ACETABULUM WAS REAMED TO 53 MM. A 49 MM TRIAL WAS PLACED IN 35 DEG OF ABDUCTION AND ANTEVERSION WAS IN ALIGNMENT WITH THE TRANS ACETABULAR LIGAMENT. THE FIT WAS EXCELLENT. THE TRIAL WAS REMOVED. A 50 MM BIOMET G7 COMPONENT WAS THEN TAPPED IN TO PLACE IN 35 DEG OF ABDUCTION AND ANTEVERSION IN ALIGNMENT WITH THE TRANSVERSE ACETABULAR LIGAMENT. THE FIT WAS EXCELLENT. THE ACETABULAR LINER WAS PLACED AND CHECKED FOR STABILITY. NEXT THE FEMUR WAS PREPARED WITH INITIAL CANAL FINDER THEN SEQUENTIAL BROACHING WITH A TAPERLOC HIP SYSTEM, UNTIL A 12 BROACH FIT WELL IN 15 OF ANTEVERSION. A +0 STANDARD OFFSET NECK WITH 36 MM HEAD TRIAL WAS PLACED. THE SHUCK TEST WAS EXCELLENT AND THE STABILITY IN FLEXION AND ROTATION WAS EXCELLENT. LEG LENGTHS WERE GROSSLY EQUAL. TRIALS WERE REMOVED. A BIOMET TAPERLOC 12 STEM WAS PLACED WITH A STANDARD OFFSET NECK THE FIT WAS EXCELLENT IN 15 DEG OF ANTEVERSION. A +0 CERAMIC 36 MM FEMORAL HEAD WAS PLACED. THE HIP WAS TRIALED AND THE STABILITY WAS EXCELLENT WERE THE LEG LENGTHS AND THE SHUCK TEST. THE WOUND WAS IRRIGATED WITH STERILE BETADINE AND WATER FOR 3 MIN. THEN WASHED AGAIN. THE CAPSULE AND THE EXTERNAL ROTATORS WERE APPROXIMATED WITH NUMBER 1 VICRYL. THE FASCIA WITH No 2 QUIL AND THE SUB CUTANEOUS LAYER WITH 2-0 ABSORBABLE SUTURE AND THEN KE TO CLOSE THE SKIN. STERILE DRESSING WAS APPLIED. PATIENT WAS PLACED BACK ON TO THE SUPINE POSITION AND WAS EXTUBATED Estimated Blood Loss 1,000 Complications No immediate complications Condition stable Disposition PACU
[2021-07-07] MEDS: fentaNYL CITRATE INJ (*CRX) 100 MCG/2 ML VIAL 25 MCG IV PUSH ×4 (12:25→13:44)
--- NOTE | 2021-07-07 13:20 | SUR.PHASEI ---
1205 PORTABLE XRAY TAKEN OF RT HIP IN PACU.
[2021-07-07 14:06] LABS: Hemoglobin 11.8 g/dL (12.0-15.0)
--- NOTE | 2021-07-07 14:21 | ADMGEN ---
This patient, Janice Chavez, was admitted to [facility]. Patient/family oriented to hospital policies and general routines including ID bracelet, bed and alarms, visiting hours, pain management, procedures, bathroom and other care routines, personal items, smoking policy, room service/diet, and visiting hours. Information on how to activate the Rapid Response Team has been discussed. Patient/Family are encouraged to report perceived risks to care and to ask questions if they do not understand what they are told or what they should do.
[2021-07-07] MEDS: MORPHINE SULFATE (*CRX) 4 MG/ML INJ 3 MG IV PUSH (14:24)
[2021-07-07] MEDS: SODIUM CHLORIDE 0.9% IV 1,000 ML 125 ML IV CONT (14:41)
[2021-07-07] MEDS: ONDANSETRON INJ 4 MG/2 ML VIAL IV PUSH (14:44)
[2021-07-07] MEDS: GABAPENTIN 300 MG CAPSULE 600 MG BY MOUTH (14:44)
[2021-07-07] MEDS: diazePAM (*CRX) 5 MG TABLET PO (14:44)
[2021-07-07] MEDS: KETOROLAC 15 MG/ML VIAL (*BKC) IV PUSH (18:03)
[2021-07-07] MEDS: MUPIROCIN 2% OINT 22 GM TUBE 1 APPLIC TOPICAL (18:04)
[2021-07-07] MEDS: SENNA/DOCUSATE SODIUM TABLET 2 TAB PO (18:04)
--- NOTE | 2021-07-07 23:17 | PC.NURSE ---
Pt unable to urinate, tried bedpan x3, bladder scan greater than 800. Called Dr. Gutierrez ordered centeno cath. Initial output 1100ml. Pt stated she felt some relief.
[2021-07-08] VITALS (7 sets, daily range): BP systolic 101–122; BP diastolic 51–68; PULSE 84–109; RESP 16–20; TEMP 36–37.9; O2SAT 96–99
[2021-07-08] MEDS: KETOROLAC 15 MG/ML VIAL (*BKC) IV PUSH ×3 (00:06→12:44)
[2021-07-08] MEDS: ceFAZolin 2 GM/D5W 50 ML 2 GM/50 ML BAG IVPB ×2 (02:58→11:36)
[2021-07-08 05:39] LABS: Basophils Absolute Auto 0.1 K/mm3 (0.0-0.1); Basophils Percent Auto 0.5 % (0.2-1.2); Eosinophils Percent Auto 0.1 % (0-4.4); Hematocrit 26.4 % (37.0-47.0); Hemoglobin 8.9 g/dL (12.0-15.0); Immature Granulocyte Absolute 0.07 K/mm3 (0.00-0.031); Immature Granulocyte Percent A 0.5 % (0-0.5); Lymphocytes Absolute Auto 3.04 K/mm3 (0.9-3.2); Lymphocytes Percent Auto 20.4 % (18.3-44.2); Mean Corpuscular HGB Conc 33.7 g/dl (32-36); Mean Corpuscular Hemoglobin 29.2 pg (26-34); Mean Corpuscular Volume 86.6 fl (80-100); Mean Platelet Volume 9.5 fl (7.4-10.4); Neutrophils Absolute Auto 10.7 K/mm3 (1.3-6.7); Neutrophils Percent Auto 71.5 % (45.5-73.1); Platelet Count Result 231 k/mm3 (150-375); Red Blood Count 3.05 M/mm3 (4.2-5.4); White Blood Count 14.9 K/mm3 (4.5-10.0)
[2021-07-08 08:16] LABS: Anion Gap 6 mmol/L (8-16); Blood Urea Nitrogen 11 mg/dL (7-17); Carbon Dioxide 20 mmol/L (22-30); Chloride 110 mmol/L (98-107); Estimated CRCL calculation 85 ml/min; Estimated Glomerular Filt Rate > 60; Glucose 109 mg/dL (65-110); Potassium 3.7 mmol/L (3.4-5.0); Sodium 136 mmol/L (137-145)
--- NOTE | 2021-07-08 09:11 | P.PNAN_ITS ---
Anes - Prog Note Post-Op Date/Time: 07/08/21 09:11 Cardiovascular status: normal Respiratory status: normal Airway patency: baseline Mental status: baseline Post-Op hydration status: normal Vital Signs: Last Vital Signs Temp 37.7 C H 07/08/21 04:00 Pulse 97 07/08/21 04:00 Resp 18 07/08/21 06:55 BP 101/51 L 07/08/21 04:00 Pulse Ox 99 07/08/21 04:00 Pain Score (VAS): 0 I/O: Intake & Output 07/07/21 07/08/21 07/08/21 23:59 07:59 15:59 Intake Total 630 850 Output Total 50 1300 Balance 580 -450 Laboratory Tests 07/08/21 05:21 07/08/21 05:21 07/07/21 07/08/21 07/08/21 13:36 05:21 05:21 WBC 14.9 H RBC 3.05 L Hgb 11.8 L 8.9 L Hct 36.0 L 26.4 L MCV 86.6 MCH 29.2 MCHC 33.7 RDW 14.0 Plt Count 231 MPV 9.5 Immature Gran % (Auto) 0.5 Neut % (Auto) 71.5 Lymph % (Auto) 20.4 Sequoyah % (Auto) 7.0 Eos % (Auto) 0.1 Baso % (Auto) 0.5 Lymph # (Auto) 3.04 [place] # (Auto) 1.0 H Eos # (Auto) 0.0 Baso # (Auto) 0.1 Abs Immat Gran (auto) 0.07 H Absolute Neuts (auto) 10.7 H Absolute Nucleated RBC 0.0 Nucleated RBC % 0.0 Sodium 136 L Potassium 3.7 Chloride 110 H Carbon Dioxide 20 L Anion Gap 6 L BUN 11 Creatinine 0.70 Estim Creat Clear Calc 85 Estimated GFR > 60 Glucose 109 Calcium 8.0 L Post-procedural complaints: none Patient Feedback: Patient satisfied with anesthetic care.
[2021-07-08] MEDS: HYDROcodone/acetaminophen (*CRX) 7.5-325 MG TABLET 1 TAB PO (09:22)
[2021-07-08] MEDS: amLODIPine BESYLATE 5 MG TABLET PO (09:23)
[2021-07-08] MEDS: ASPIRIN 325 MG ENTERIC TABLET 650 MG PO (09:23)
[2021-07-08] MEDS: buPROPion HCL XL (24 HR) 150 MG TABCR 300 MG PO (09:23)
[2021-07-08] MEDS: polyethylene glycoL 3350 17 GM POWD.PACK PO (09:24)
[2021-07-08] MEDS: MUPIROCIN 2% OINT 22 GM TUBE 1 APPLIC TOPICAL (09:24)
[2021-07-08] MEDS: SENNA/DOCUSATE SODIUM TABLET 2 TAB PO (09:24)
[2021-07-08] MEDS: atenoloL 50 MG TABLET PO (10:26)
[2021-07-08] MEDS: PANTOPRAZOLE 40 MG TABLET PO (10:28)
--- NOTE | 2021-07-08 12:31 | PM.PNORT ---
Progress Note: A&P Assessment and Plan (1) S/P total hip arthroplasty: Qualifiers: Laterality: right Qualified Code(s): Z96.641 - Presence of right artificial hip joint Code(s): Z96.649 - Presence of unspecified artificial hip joint Status: Acute Assessment and Plan: POD #1: Right CELIA Continue PT/OT. WBAT. Walker. High Fall Risk. Continue pain control. Ice. SCDs. Incentive Spirometry. Void trial last night, urinary retention. Centeno reinserted. Good output. Remove centeno now, if still with urinary retention with need urology consult. Monitor dressing. Change prior to discharge. Dispo: Home with Home Health today pending ability to void. Time Spent With Patient Time with patient: less than 15 minutes Subjective Subjective Date/Time Seen: 07/08/21 12:31 Review of Systems Review of Systems: All systems reviewed & are unremarkable except as noted in HPI and below Constitutional: Constitutional: Denies chills, Denies fever(s), Denies headache(s), Denies lethargy and Reports weakness ENT: Denies headache(s) Cardiovascular: Cardiovascular: Denies chest pain, Denies diaphoresis, Denies lightheadedness, Denies palpitations, Denies dyspnea and Denies dyspnea on exertion Respiratory: Respiratory: Denies cough, Denies dyspnea and Denies dyspnea on exertion Gastrointestinal: Gastrointestinal: Denies constipation, Denies diarrhea, Denies nausea and Denies vomiting Genitourinary: Genitourinary: Reports urinary frequency, Denies dysuria and Denies urinary hesitancy Musculoskeletal: Musculoskeletal: Reports joint swelling (Right Hip ) and Reports limited range of motion (Right Hip due to recent surgery ) Neurologic: Denies headache(s) and Reports weakness Endocrine: Endocrine: Denies palpitations Exam Const: General: comfortable and no acute distress Resp: Effort & Inspection: normal respiratory effort Cardio: Rate: regular rate Rhythm: regular rhythm GI: Inspection: non-distended Skin: General skin exam: normal color Other: Incision right hip c/d/i. Surrounding tissue without redness/warmth. Mild swelling consistent with recent surgery. No drainage. Neuro: Cognition (Neuro): normal cognition Speech: normal speech Other: Strength RLE decreased due to recent surgery. +ankle dorsiflexion/plantarflexion. NV intact. Moves toes. Sensaiton intact to light touch. Extrem: Right lower extremity: normal to inspection, normal capillary refill and hip/thigh Details: tenderness Location: of the hip (Thigh soft ) Location: laterally and anteriorly, swelling Location: at the hip, abnormal ROM (limited consistent with recent surgery ) and other (Incision c/d/i. ); no deformity and no unusual warmth Objective Data Vital Signs Vital Signs: Vital Signs - 24 hr 07/07/21 12:35 07/07/21 12:50 07/07/21 13:05 Temperature Pulse Rate 82 87 78 Respiratory Rate 22 H 22 H 18 Blood Pressure 124/79 130/83 131/79 Pulse Oximetry 95 99 96 07/07/21 13:20 07/07/21 13:35 07/07/21 13:50 Temperature Pulse Rate 85 83 80 Respiratory Rate 18 16 16 Blood Pressure 121/79 122/79 107/60 Pulse Oximetry 99 100 96 07/07/21 14:03 07/07/21 14:18 07/07/21 14:48 Temperature 35.8 C L 35.9 C L 36.1 C L Pulse Rate 85 90 82 Respiratory Rate 22 H 20 17 Blood Pressure 96/77 L 104/68 104/66 Pulse Oximetry 98 99 99 07/07/21 15:25 07/07/21 15:48 07/07/21 20:00 Temperature 35.9 C L 36.2 C L 36.8 C Pulse Rate 81 84 Respiratory Rate 16 18 Blood Pressure 114/61 119/70 Pulse Oximetry 98 96 07/07/21 22:00 07/08/21 00:00 07/08/21 04:00 Temperature 37.9 C H 37.7 C H Pulse Rate 102 H 97 Respiratory Rate 18 20 20 Blood Pressure 110/65 101/51 L Pulse Oximetry 96 99 07/08/21 06:00 07/08/21 06:55 07/08/21 09:16 Temperature 36.0 C L Pulse Rate 109 H Respiratory Rate 18 18 16 Blood Pressure 122/68 Pulse Oximetry 99 07/08/21 10:26 07/08/21 12:23 Temperature 37.7 C H Pulse Rate 1
--- NOTE | 2021-07-09 13:58 | PM.DS ---
DS: Admitting Diagnosis Discharge Date 07/08/21 Admitting Diagnosis Right Hip DJD DS: Discharge Diagnosis Discharge Diagnosis (1) S/P total hip arthroplasty: Qualifiers: Laterality: right Qualified Code(s): Z96.641 - Presence of right artificial hip joint Code(s): Z96.649 - Presence of unspecified artificial hip joint Status: Acute Assessment and Plan: POD #1: Right CELIA Continue PT/OT. WBAT. Walker. High Fall Risk. Continue pain control. Ice. SCDs. Incentive Spirometry. Void trial last night, urinary retention. Centeno reinserted. Good output. Remove centeno now, if still with urinary retention with need urology consult. Monitor dressing. Change prior to discharge. Dispo: Home with Home Health today pending ability to void. DS: Summary Hospital Course Reason for hospitalization: Right CELIA Hospital Course: 60-year-old female admitted status post right total hip arthroplasty. She had difficulty with urination postoperatively after her Centeno catheter was pulled. She had a new Centeno catheter placed and had good urine output. Her Centeno was then removed and she was able to urinate prior to discharge on postop day 1. She progressed well with PT and OT on postop day 1. Her pain has been well controlled. No acute event while hospitalized. Patient has been cleared for discharge home with home health. She will follow up in the outpatient orthopedic clinic with Dr. Gutierrez in 3 weeks. Status at Discharge Functional status at discharge: uses cane/walker Overall status at discharge: patient is progressing back to baseline Time Spent with Patient Time attestation: Total time spent providing and/or coordinating discharge services: Time spent: Less than 30 minutes Exam Const: General: comfortable and no acute distress Resp: Effort & Inspection: normal respiratory effort Cardio: Rate: regular rate Rhythm: regular rhythm GI: Inspection: non-distended Skin: General skin exam: normal color Other: Incision right hip c/d/i. Surrounding tissue without redness/warmth. Mild swelling consistent with recent surgery. No drainage. Neuro: Cognition (Neuro): normal cognition Speech: normal speech Other: Strength RLE decreased due to recent surgery. +ankle dorsiflexion/plantarflexion. NV intact. Moves toes. Sensaiton intact to light touch. Extrem: Right lower extremity: normal to inspection, normal capillary refill and hip/thigh Details: tenderness Location: of the hip (Thigh soft ) Location: laterally and anteriorly, swelling Location: at the hip, abnormal ROM (limited consistent with recent surgery ) and other (Incision c/d/i. ); no deformity and no unusual warmth Discharge Plan Discharge Attending physician on discharge: Jas Gutierrez Consulting providers: Mike Myles Discharging Clinician: Cara Soria Anticipated Discharge Date/Time: 07/08/21 12:00 Patient Disposition: Home Health Service Activity: may shower, no driving and follow weight bearing status Diet: as tolerated Wound Care Instructions: follow printed instructions Discharge Instructions: Post Op Total Hip Replacement Instructions Dr. Jas Gutierrez [phone] ? Your dressing will be changed prior to your discharge. You will be sent home with one additional dressing to be changed on post op day 7 by the home health RN. You may remove the dressing on post op day 14. Your incision was closed with dermabond, allow the dermabond to fall off naturally once your dressing is removed. Do not pull at the dermabond or disrupt incision healing. ? You may shower with your dressing but do not submerge in a bath tub. ? Do not drive or operate machinery until you are released by Dr. Gutierrez. ? Do not walk without a walker for any reason until you are released by Dr. Gutierrez. ? Continue to apply ice to the hip intermittently for additional pain relief. Protect your skin with a towel or pillow case. ? Continue to follow
== END 2021-07-08 15:35 | disposition home health service (06) | DRG 470 ==
LOC: ANHSUROVER 14:04
PROVIDERS: Admitting Provider Orthopaedic Surgery; PCP Physician Assistant; Visit Provider Nurse Practitioner Family
PROC: 0SR901A Replacement of Right Hip Joint with Metal Synthetic Substitute, Uncemented, Open Approach (ICD-10-PCS; CPT 27130; principal; 2021-07-07 07:30)
DX: M16.11 Unilateral primary osteoarthritis, right hip (principal); I10 Essential (primary) hypertension; M79.7 Fibromyalgia; R33.8 Other retention of urine; F17.210 Nicotine dependence, cigarettes, uncomplicated; E66.9 Obesity, unspecified; Z68.37 Body mass index [BMI] 37.0-37.9, adult; Z96.642 Presence of left artificial hip joint
CPT/HCPCS: 36415; 73501; 80048; 85014; 85018; 85025; 86850; 86900; 86901; 97110; 97116; 97161; 97165; A9270; C1713; C1776; J0131; J0171; J0360; J0690; J1100; J1170; J1885; J2250; J2270; J2405; J2704; J2710; J2795; J3010; J3370; J7030; J7120

== ENCOUNTER 2021-08-09 10:46 | Outpatient (RCR) | payer MEDICARE, MEDICAID, SELFPAY ==
--- NOTE | 2021-08-09 12:10 | PTOPEVAL ---
Thank you for referring Janice Chavez to [facility].? The patient is scheduled to be seen for therapy? __2__x/week for 12 visits. Please review, sign, date and return this plan of care SHAMIR. I agree with and certify that the following plan of care is medically necessary. Referring Physician Date Admitting Provider: Attending Provider: Jas Gutierrez MD Referring Provider: *PT Outpatient Evaluation Start: 08/09/21 10:52 Freq: Status: Active Protocol: Document 08/09/21 10:53 TOSHIA (Rec: 08/09/21 12:10 TOSHIA [id number]) Therapy Assessment Status Assessment Status Assessment Status Evaluation Outpatient Past Medical History Neurological History Hx Neurological Disorders No Significant History Cardiovascular History Hx Hypertension Yes Respiratory History Hx Respiratory Disorders No Significant History Gastrointestinal History Hx Gastroesophageal Reflux Disease Yes Genitourinary History Hx Other Genitourinary Disorders Yes: OVERACTIVE BLADDER, STRESS INCONTINENCE Musculoskeletal History Hx Arthritis Yes Hx Crutches or Walker Use Yes: WITH LT CELIA Query Text:If Yes, Enter Crutches, Walker, or Both in the Comment Hx Joint Replacement Yes: LT HIP 01/2019 Hx Orthopedic Surgery Yes: RT SHOULDER BONE SPURS REMOVED Hx Other Musculoskeletal Disorders Yes: DJD RT HIP Hematological History Hx Hematological Disorders No Significant History Endocrine History Hx Endocrine Disorders No Significant History HEENT History Hx Dental Problems Yes: UPPER PARTIAL Hx Other HEENT Disorders Yes: READING GLASSES, BURNS PAIUTE-NO HEARING AIDS Integumentary History Hx Skin Disorders No Significant History Psychosocial History Hx Depression Yes Pain History Has Past Pain Affected Your Daily Life Yes: RT HIP Anesthesia History Hx Anesthesia Reactions No Significant History Other History Hx Implanted Device Yes: LT HIP Evaluation Information Problem Diagnosis s/p rigth CELIA Onset 07/07/21 Subjective Information Pt. reports she underwent Query Text:As Reported By Patient/ right CELIA on 07/07/21. She Family reports immediate pain relief. She states that she has returned to driving. she is using a cane for ambulation. She reports she has not been able to grocery shop or doing much community activity yet due to weakness. She reports that she still feels weak and
== END 2021-09-28 11:38 | disposition home or self-care (01) ==
LOC: CHSPT 10:46
PROVIDERS: Visit Provider Orthopaedic Surgery
DX: Z96.641 Presence of right artificial hip joint (principal)
CPT/HCPCS: 97110; 97161; 97530

== ENCOUNTER 2021-10-05 11:22 | Outpatient (CLI) | payer MEDICARE, SELFPAY ==
[2021-10-05 11:47] LABS: Hematocrit 36.6 % (35.0-49.0); Hemoglobin 10.5 g/dL (12.0-15.0); Mean Corpuscular HGB Conc 28.7 g/dL (32.0-36.0); Mean Corpuscular Hemoglobin 22.3 pg (27.0-31.0); Mean Corpuscular Volume 77.7 fL (78.0-102.0); Mean Platelet Volume 9.2 fl (9.2-11.8); Platelet Count Result 327 K/mm3 (150-420); Red Blood Count 4.71 M/mm3 (4.20-5.40); Red Cell Distribution Width 16.3 % (11.6-14.4); White Blood Count 7.9 K/mm3 (4.8-10.8)
[2021-10-05 12:16] LABS: Alanine Aminotransferase 16 U/L (14-59); Albumin Level 3.4 g/dL (3.4-5.0); Alkaline Phosphatase 123 U/L (46-116); Anion Gap 5 mmol/L (8-16); Aspartate Amino Transferase 16 U/L (15-37); Bilirubin,Total 0.1 mg/dL (0.00-1.00); Blood Urea Nitrogen 10 mg/dL (7-18); Calcium 8.7 mg/dL (8.5-10.1); Carbon Dioxide 30 mmol/L (21-32); Chloride 105 mmol/L (98-108); Cholesterol 173 mg/dL (0-200); Estimated Glomerular Filt Rate > 60; Glucose 88 mg/dL (70-99); HDL Direct 42 mg/dL (40-60); LDL Cholesterol Calculated 105 mg/dL (<130); Osmolality Calculated 288 mOsm/kg (285-295); Potassium 4.1 mmol/L (3.5-5.1); Sodium 140 mmol/L (136-145); Thyroid Stimulating Hormone 1.08 uIU/mL (0.36-3.74); Total Protein 7.3 g/dL (6.4-8.2); Triglycerides 128 mg/dL (0-150)
== END 2021-10-05 11:23 | disposition home or self-care (01) ==
LOC: CHSLAB 11:28
PROVIDERS: PCP Physician Assistant; Visit Provider Physician Assistant
DX: R53.83 Other fatigue (principal); Z13.6 Encounter for screening for cardiovascular disorders
CPT/HCPCS: 36415; 80053; 80061; 84443; 85027

== ENCOUNTER 2022-02-15 08:46 | Outpatient (CLI) | payer MEDICARE, MEDICAID, SELFPAY ==
--- NOTE | ~2022-02-15 | XR_ITS ---
EXAMINATION: XR hip RT min 2V DATE: 02/15/2022 09:17 INDICATION: Right hip pain TECHNIQUE: Three views of right hip were obtained. COMPARISON: 11/01/2021 FINDINGS: There are changes right hip arthroplasty. Alignment is normal. There is no fracture. The or thopedic hardware is intact. There are partially imaged surgical changes of the lumbar spine. The sof t tissues are unremarkable. IMPRESSION: 1. No acute osseous abnormality. Reviewed, dictated and finalized at location A.
== END 2022-02-15 08:47 | disposition home or self-care (01) ==
LOC: CHSIMG 08:50
PROVIDERS: PCP Physician Assistant; Visit Provider Orthopaedic Surgery
DX: M25.551 Pain in right hip (principal)
CPT/HCPCS: 73502

== ENCOUNTER 2022-05-05 10:49 | Outpatient (CLI) | payer MEDICARE, MEDICAID, SELFPAY ==
--- NOTE | ~2022-05-05 | XR_ITS ---
Clinical Indication: Smoking history PA and lateral views of the chest: Comparison: 02/26/2008 Findings: The lungs are clear, without evidence of focal consolidation or pleural effusion. Cardiome diastinal silhouette is within normal limits. Cervical spine fixation hardware noted. Impression: Clear lungs. Reviewed, dictated and finalized at location [] MAKER Impression: Clear lungs.
--- NOTE | ~2022-05-05 | XR_ITS ---
Lumbosacral Spine: AP and lateral views Clinical History: Pain COMPARISON: 06/23/2018 Findings: Stable posterior fusion hardware from L4 through S1 with bilateral rods, transpedicular scr ews, and associated diffusion devices. There is been interval placement vertebroplasty cement in the L2 and L3 vertebral bodies. Minimal grade 1 retrolisthesis of L2 over L3 is unchanged. Advanced degen erative disc narrowing at L2-L3 and moderate degenerative change at L1-L2 is resin. Mild facet joint degenerative changes are present throughout the lumbar spine. The sacroiliac joints are normally outl ined. Impression: Stable posterior fusion hardware from L4 through S1, as detailed above. Interval vertebroplasty of L2 and L3. Minimal grade 1 retrolisthesis of L2 over L3, unchanged. Degenerative changes, as detailed above. Reviewed, dictated and finalized at location [] INE CLOTH EXAMINER Impression: Stable posterior fusion hardware from L4 through S1, as detailed above. Interval vertebroplasty of L2 and L3. Minimal grade 1 retrolisthesis of L2 over L3, unchanged. Degenerative changes, as detailed above.
--- NOTE | 2022-05-05 18:30 | ECG_ITS ---
Measurements Intervals Jenner Rate: 77 P: 32 WY: 146 QRS: 32 QRSD: 89 T: 43 QT: 369 QTc: 419 Interpretive Statements SINUS RHYTHM COMPARED TO ECG 06/21/2021 12:52:36 NO SIGNIFICANT CHANGES Electronically Signed On 05-05-2022 20:07:24 PLASTIC FIXTURE BUILDER by Starla Boyd M.D.
== END 2022-05-05 10:50 | disposition home or self-care (01) ==
LOC: CHSIMG 10:55
PROVIDERS: PCP Physician Assistant; Visit Provider Physician Assistant
DX: M54.16 Radiculopathy, lumbar region (principal); Z00.00 Encounter for general adult medical examination without abnormal findings
CPT/HCPCS: 71046; 72100; 93005

== ENCOUNTER 2022-08-16 08:29 | Outpatient (CLI) | payer MEDICARE, MEDICAID, SELFPAY ==
--- NOTE | ~2022-08-16 | XR_ITS ---
AP and lateral views view of the [ ] hip Clinical history: Pain Findings: No acute fracture or dislocation is seen. Left hip arthroplasty in place. No hardware compl ication evident. Soft tissues are unremarkable. Impression: No acute abnormality is seen. Left hip arthroplasty in place. Reviewed, dictated and finalized at location . Impression: No acute abnormality is seen. Left hip arthroplasty in place.
--- NOTE | ~2022-08-16 | XR_ITS ---
AP and lateral views of the right hip Clinical history: Pain Findings: No acute fracture or dislocation is seen. Right hip arthroplasty is in place. No hardware c omplication seen. Soft tissues are unremarkable. Impression: No acute abnormality is seen. Right hip arthroplasty in place. Reviewed, dictated and finalized at location . Impression: No acute abnormality is seen. Right hip arthroplasty in place.
== END 2022-08-16 08:30 | disposition home or self-care (01) ==
PROVIDERS: PCP Physician Assistant; Visit Provider Orthopaedic Surgery
DX: M25.551 Pain in right hip (principal); M25.552 Pain in left hip; Z96.643 Presence of artificial hip joint, bilateral
CPT/HCPCS: 73502

== ENCOUNTER 2023-05-25 13:41 | Outpatient (CLI) | payer MEDICARE, MEDICAID, SELFPAY ==
--- NOTE | ~2023-05-25 | MM_ITS ---
EXAMINATION: MM screening alex BI w nancy HISTORY: Screening mammogram TECHNIQUE: Craniocaudal and mediolateral oblique 3-D tomosynthesis images were obtained and synthetic 2-D images were generated. CAD analysis was submitted and interpreted. COMPARISON: 07/05/2021, 06/16/2020 BREAST PARENCHYMAL COMPOSITION: The breasts are almost entirely fatty. FINDINGS: No suspicious mass, calcification, or architectural distortion are identified in either francine ast to suggest malignancy. There has been no suspicious interval change. IMPRESSION: 1. No mammographic evidence of malignancy. 2. Recommend routine screening mammography in one year. BI-RADS Category 1: Negative Reviewed, dictated and finalized at location A. T SERVICES COORDINATOR
[2023-05-25 15:16] LABS: Thyroid Stimulating Hormone 2.19 uIU/mL (0.36-3.74)
== END 2023-05-25 13:42 | disposition home or self-care (01) ==
LOC: CHSIMG 13:43
PROVIDERS: PCP Physician Assistant; Visit Provider Student in an Organized Health Care Education/Training Program
DX: Z12.31 Encounter for screening mammogram for malignant neoplasm of breast (principal); R53.83 Other fatigue; N95.1 Menopausal and female climacteric states
CPT/HCPCS: 36415; 77063; 77067; 84443

== ENCOUNTER 2023-09-18 10:56 | Observation (INO) | payer MEDICARE, SELFPAY ==
[2023-09-18] VITALS (8 sets, daily range): BP systolic 108–132; BP diastolic 56–75; PULSE 77–91; RESP 14–18; TEMP 36.2–37.2; O2SAT 94–97; BMI 39.7
--- NOTE | ~2023-09-18 | XR_ITS ---
EXAMINATION: XR chest 2V DATE: 09/18/2023 11:42 INDICATION: Confusion. Hallucinations. TECHNIQUE: Frontal and lateral views of the chest were obtained. COMPARISON: Chest 2 views 05/05/2022 FINDINGS: There is no pneumonia, pleural effusion, or pneumothorax. The heart size is normal. There a re changes of anterior fusion procedure in cervical spine. There are changes of vertebroplasty in lum bar spine. IMPRESSION: 1. No acute cardiopulmonary disease. Reviewed, dictated and finalized at location A.
--- NOTE | ~2023-09-18 | CT_ITS ---
EXAMINATION: CT brain wo con DATE: 09/18/2023 11:36 INDICATION: Confusion. Hallucinations. TECHNIQUE: Computed tomography (CT) of the head was performed without intravenous contrast. The mA wa s adjusted according to patient size. Iterative reconstruction technique was employed. The dose-lengt h product was 681.00 mGy-cm. COMPARISON: None FINDINGS: There is no intracranial hemorrhage, acute infarction, or abnormal intracranial mass lesion . The ventricles are normal in size. The paranasal sinuses are clear. There are likely changes of ocu lar lens replacement surgeries. The mastoid air cells are normal. IMPRESSION: 1. Normal brain. Reviewed, dictated and finalized at location A. IMPRESSION: 1. Normal brain.
--- NOTE | 2023-09-18 11:18 | ED.GENADULT ---
HPI - General Adult General Chief complaint: Unspecified Stated complaint: hallucinations, Urinary issues Time Seen by Provider: 09/18/23 11:05 History of Present Illness HPI narrative: Pt presents via EMS with reports of patient having visual hallucinations. Pt reportedly seeing snakes in her house and they are not there. Pt had EMS called last night but refused transport. Concerns continued today and pt agreed to be seen. Pt had new antidepressant started recently (vraylar). Pt also takes tylenol #4, clonazepam, buproprion, ambien, and gabapentin among others. Pt says she has history of urinary incontinence but denies other new symptoms. Pt denies fever or cough. Related Data Home Medications Medication Instructions Recorded Confirmed amlodipine 5 mg tablet 5 mg PO QAM 09/29/20 09/18/23 atenolol 50 mg tablet 50 mg PO QAM 09/29/20 09/18/23 bupropion HCl 300 mg 24 hr tablet, 300 mg PO QAM 09/29/20 09/18/23 extended release (Wellbutrin XL) calcium carbonate 600 mg-vitamin 1 tablet PO QAM 06/21/21 09/18/23 D3 5 mcg (200 unit) tablet gabapentin 600 mg tablet 600 mg PO TID 06/21/21 09/18/23 oxybutynin chloride 10 mg 10 mg PO QAM 06/21/21 09/18/23 tablet,extended release 24 hr clonazepam 0.5 mg tablet 0.5 mg PO PRN PRN Anxiety 05/02/23 09/18/23 omeprazole 20 mg capsule,delayed 20 mg PO DAILY 05/02/23 09/18/23 release acetaminophen 300 mg-codeine 60 mg 1 tablet PO TID 09/18/23 09/18/23 tablet zolpidem 10 mg tablet 10 mg PO HS 09/18/23 09/18/23 Allergies Allergy/AdvReac Type Severity Reaction Status Date / Time tetracycline Allergy Unknown Rash Verified 05/02/23 15:11 Review of Systems Review of Systems: All systems reviewed & are unremarkable except as noted in HPI and below PMFSH Past Medical History Medical History (Updated 09/18/23 @ 12:02 by Vickie Segura III, ) Arthritis Cataracts, bilateral Degenerative joint disease of left hip Depression Fibromyalgia History of MRSA infection Hypertension Pain of left hip joint Screening mammogram for breast cancer Surgical History Surgical History (Updated 05/02/23 @ 15:15 by Mary Mcclure CMA) H/O: hysterectomy History of cervical spinal surgery History of kyphoplasty History of total left hip arthroplasty S/P total hip arthroplasty Family History Family History Other Asthma Depression Diabetes mellitus Family history of arthritis Heart disease Hypertension Kidney disorder Social History Social History (Updated 05/02/23 @ 15:03 by Mary Mcclure CMA) Smoking status: Former smoker Tobacco type: cigarettes Second hand tobacco smoke exposure: Yes (STATES OCCASIONALLY, BUT TRIES TO AVOID IT) Additional smoking assessment comments: PT DENIES ALL FORMS OF TOBACCO USE Alcohol intake: current Alcohol use details: 3-4 per year Substance use: current Substance use type: marijuana Other substance usage details: DAILY Lack of Transportation: YES Lack of Food: Never True Current Housing: I Have Housing Concerned About Future Housing: No Difficulty Paying Gas/Electric Bills: No Difficulty Paying for Meds: No Currently Unemployed: No Education: Bachelor's Degree Difficulty w/ Childcare or Family Care: No Living arrangements: alone Additional occupation/education comments: disabled Gender identity (if verbalized by the patient): Female Spiritual care concerns: No Exam Const: General: cooperative, healthy appearing, comfortable and no acute distress Nutritional Appearance: average body habitus Orientation/consciousness: patient oriented x3 Limitations: no limitations HENMT: Mouth: Yes Normal oral and palatal mucosa present Neck: Neck: normal visual inspection Lymphatic: no lymphadenopathy noted Resp: Effort & Inspection: normal respiratory effort Auscultation: clear to auscultation bilaterally Cardio: Rate: regular rate Rhy
[2023-09-18 11:23] LABS: Appearance Urine Sl Cloudy (Clear); Bilirubin Urine Negative (Negative); Blood Urine Trace-intact (Negative); Color Urine Light Yellow (Yellow); Glucose Urine UA Negative (Negative); Ketones Urine 3+ (Negative); Leukocyte Esterase Ur 3+ LEU/UL (Negative); Nitrate Urine Positive (Negative); Protein Urine Negative (Negative); Specific Grav Ur 1.025 (1.010-1.020); Urobilinogen Urine 0.2 mg/dL (0.2-1.0)
[2023-09-18 11:32] LABS: Add Urine Microscopic? YES; Bacteria Urine 3+ /hpf; RBC Urine 0-2 /hpf (0-2); Squamous Epithelial Cell Urine Moderate /hpf (Few); WBC Urine >75 /hpf (0-3)
[2023-09-18 11:52] LABS: Basophils Absolute Auto 0.06 K/mm3 (0.00-0.10); Basophils Percent Auto 0.5 % (0.0-1.0); Eosinophils Absolute Auto 0.14 K/mm3 (0.02-0.50); Eosinophils Percent Auto 1.1 % (1.0-6.0); Hematocrit 34.4 % (35.0-49.0); Hemoglobin 10.6 g/dL (12.0-15.0); Immature Granulocyte Absolute 0.06 K/mm3 (0.00-0.00); Immature Granulocyte Percent A 0.5 % (0.0-0.0); Lymphocytes Absolute Auto 1.82 K/mm3 (1.10-4.50); Lymphocytes Percent Auto 14.4 % (18.0-42.0); Mean Corpuscular HGB Conc 30.8 g/dL (32-36); Mean Corpuscular Hemoglobin 24.1 pg (27.0-31.0); Mean Corpuscular Volume 78.2 fL (78.0-102.0); Monocytes Absolute Auto 0.78 K/mm3 (0.10-0.90); Monocytes Percent Auto 6.2 % (2.0-11.0); Neutrophils Absolute Auto 9.77 K/mm3 (1.70-7.20); Neutrophils Percent Auto 77.3 % (50.0-70.0); Platelet Count Result 286 K/mm3 (150-420); Red Cell Distribution Width 17.8 % (11.6-14.4); White Blood Count 12.6 K/mm3 (4.8-10.8)
[2023-09-18 12:08] LABS: Alanine Aminotransferase 42 U/L (14-59); Albumin Level 3.7 g/dL (3.4-5.0); Alkaline Phosphatase 101 U/L (46-116); Anion Gap 13 mmol/L (4-12); Aspartate Amino Transferase 54 U/L (15-37); Bilirubin,Total 0.5 mg/dL (0.00-1.00); Blood Urea Nitrogen 12 mg/dL (7-18); Calcium 9.5 mg/dL (8.5-10.1); Carbon Dioxide 27 mmol/L (21-32); Chloride 104 mmol/L (98-108); Estimated CRCL calculation 62 ml/min; Estimated Glomerular Filt Rate 56; Glucose 101 mg/dL (70-99); Osmolality Calculated 297 mOsm/kg (285-295); Potassium 3.5 mmol/L (3.5-5.1); Sodium 144 mmol/L (136-145); Total Protein 7.8 g/dL (6.4-8.2)
[2023-09-18 12:13] LABS: Lactic Acid Reflex 1.6 mmol/L (0.4-2.0)
--- NOTE | 2023-09-18 12:16 | PC.NURSE ---
PT ACCEPTED FOR ADMISSION AND BED 205 ASSIGNED AT 1215. REGISTRATION AWARE.
[2023-09-18] MEDS: cefTRIAXone 2 GM/NS 100 ML 2 GM/100 ML BAG IVPB (12:30)
[2023-09-18 13:21] LABS: CRP 7.3 mg/dL (0.0-0.9)
--- NOTE | 2023-09-18 13:54 | PC.NURSE ---
Pt arrived on the floor from ER @ 1250. She is A/Ox3. RN went over the admission information in the blue chart and the call system. Rn reviewed the rapid responce system and visiting hours with pt. Pt verbalized understanding of all instructions.
[2023-09-18] MEDS: ACETAMINOPHEN/CODEINE (*CRX) 300/30 MG TABLET 2 TAB PO (14:11)
[2023-09-18] MEDS: clonazePAM (*CRX) 0.5 MG TABLET PO ×2 (15:32→23:45)
--- NOTE | 2023-09-18 16:48 | PC.NURSE ---
Patient sitting on side of bed. O2 @ 2:PM//NC. Patient concerned regarding O2 saturations. Nurse educated patient on normal ranges with COPD as well as observed that patient's nasal cannula was not in his nose.. SPO2 89% with O2 out of his nose, went to 97% once replaced in nose. Patient has his own pulse ox at bedside and is continuously monitoring his own saturations.
--- NOTE | 2023-09-18 17:05 | PC.NURSE ---
Patient resting in bed. Able to turn herself in bed. Elevates HOB for dinner. Able to answer questions without difficulty. No c'/o offered. Call light and belongings within reach.
--- NOTE | 2023-09-18 19:17 | PC.NURSE ---
Patient fed self supper. Denies N/V. Assisted to the bathroom x2. Able to turn and position self. Call light and belongings within reach.
[2023-09-18] MEDS: ACETAMINOPHEN 325 MG TABLET 650 MG PO (19:46)
[2023-09-19] VITALS: BP 114/57; PULSE 80; RESP 20; TEMP 36.1; O2SAT 92
[2023-09-19] MEDS: ACETAMINOPHEN/CODEINE (*CRX) 300/30 MG TABLET 2 TAB PO ×3 (03:04→22:09)
[2023-09-19 04:00] VITALS: BP 126/79; PULSE 78; RESP 16; TEMP 36.1; O2SAT 95
[2023-09-19 05:19] LABS: Basophils Absolute Auto 0.05 K/mm3 (0.00-0.10); Basophils Percent Auto 0.6 % (0.0-1.0); Eosinophils Absolute Auto 0.26 K/mm3 (0.02-0.50); Eosinophils Percent Auto 3.4 % (1.0-6.0); Hematocrit 33.3 % (35.0-49.0); Hemoglobin 10.1 g/dL (12.0-15.0); Immature Granulocyte Absolute 0.01 K/mm3 (0.00-0.00); Immature Granulocyte Percent A 0.1 % (0.0-0.0); Lymphocytes Absolute Auto 1.83 K/mm3 (1.10-4.50); Lymphocytes Percent Auto 23.7 % (18.0-42.0); Mean Corpuscular HGB Conc 30.3 g/dL (32-36); Mean Corpuscular Volume 79.3 fL (78.0-102.0); Monocytes Absolute Auto 0.63 K/mm3 (0.10-0.90); Monocytes Percent Auto 8.2 % (2.0-11.0); Neutrophils Absolute Auto 4.94 K/mm3 (1.70-7.20); Platelet Count Result 247 K/mm3 (150-420); Red Cell Distribution Width 17.8 % (11.6-14.4); White Blood Count 7.7 K/mm3 (4.8-10.8)
[2023-09-19 05:41] LABS: Alanine Aminotransferase 38 U/L (14-59); Albumin Level 3.2 g/dL (3.4-5.0); Alkaline Phosphatase 91 U/L (46-116); Anion Gap 2 mmol/L (4-12); Aspartate Amino Transferase 47 U/L (15-37); Bilirubin,Total 0.3 mg/dL (0.00-1.00); Blood Urea Nitrogen 9 mg/dL (7-18); Calcium 8.5 mg/dL (8.5-10.1); Carbon Dioxide 29 mmol/L (21-32); Chloride 104 mmol/L (98-108); Estimated CRCL calculation 73 ml/min; Estimated Glomerular Filt Rate > 60; Glucose 113 mg/dL (70-99); Magnesium 1.9 mg/dL (1.8-2.4); Osmolality Calculated 279 mOsm/kg (285-295); Potassium 2.8 mmol/L (3.5-5.1); Sodium 135 mmol/L (136-145); Total Protein 7.3 g/dL (6.4-8.2)
[2023-09-19] MEDS: clonazePAM (*CRX) 0.5 MG TABLET PO ×3 (07:10→22:11)
[2023-09-19 08:00] VITALS: BP 126/79; PULSE 79; RESP 14; TEMP 36.1; O2SAT 95
[2023-09-19] MEDS: amLODIPine BESYLATE 5 MG TABLET PO (09:00)
[2023-09-19] MEDS: buPROPion HCL XL (24 HR) 150 MG TABCR 300 MG PO (09:10)
[2023-09-19 09:15] VITALS: PULSE 79
[2023-09-19] MEDS: atenoloL 50 MG TABLET PO (09:15)
[2023-09-19] MEDS: ASPIRIN 325 MG ENTERIC TABLET 650 MG PO (09:15)
[2023-09-19] MEDS: oxyBUTYnin CHLORIDE XL 5 MG TAB.ER.24 10 MG PO (10:04)
[2023-09-19] MEDS: KCL 20 MEQ/SW 100 ML 100 ML 50 MEQ IVPB (10:10)
--- NOTE | 2023-09-19 10:10 | PM.IMHP ---
H&P: HPI History of Present Illness Date/Time: 09/19/23 10:10 Chief Complaint: hallucinations, acute UTI Narrative: This is a 62 year old female patient who was admitted to the hospital for hallucinations in the setting of abnormal UA indicative of UTI. Patient was complaining of seeing snakes in her home. EMS had been called to her house the other day but she declined transportation to hospital. Yesterday EMS was called back to her home with same complaints of hallucinations. Patient accepted transport to ER and in the ER she had elevated WBC with UA concerning for UTI. Other labs were generally normal. Review of home medications shows that patient is on multiple potential psychoactive medications including clonazepam, zolpidem (highest potential to cause hallucinations and altered LOC), gabapentin and Tylenol #4. ER did not feel like overdose was likely. Patient admitted overnight. This morning labs have shifted with a drop in potassium and drop in sodium. Improvement noted in WBCs. Will plan to replace potassium with magnesium and recheck metabolic panel this afternoon. Will plan to continue IV abx and keep patient overnight with possible discharge tomorrow. Review of Systems Review of Systems: All systems reviewed & are unremarkable except as noted in HPI and below PMFSH Past Medical History Medical History (Updated 09/19/23 @ 10:42 by Miek Ray APRN) Arthritis Cataracts, bilateral Degenerative joint disease of left hip Depression Fibromyalgia History of MRSA infection Hypertension Pain of left hip joint Screening mammogram for breast cancer Surgical History Surgical History H/O: hysterectomy History of cervical spinal surgery History of kyphoplasty History of total left hip arthroplasty S/P total hip arthroplasty Family History Family History Other Asthma Depression Diabetes mellitus Family history of arthritis Heart disease Hypertension Kidney disorder Social History Social History Smoking packs per day: 0.5 Smoking cigarettes per day: 10.0 Years smoked: 30 Smoking pack-years: 15.00 Smoking status: Light tobacco smoker Tobacco type: cigarettes Second hand tobacco smoke exposure: Yes Additional smoking assessment comments: PT DENIES ALL FORMS OF TOBACCO USE Alcohol intake: current Drinks per week: 2 Alcohol use details: 3-4 per year Substance use: current Substance use type: marijuana Other substance usage details: DAILY Lack of Transportation: YES Lack of Food: Never True Current Housing: I Have Housing Concerned About Future Housing: No Difficulty Paying Gas/Electric Bills: No Difficulty Paying for Meds: No Currently Unemployed: No Education: Bachelor's Degree Difficulty w/ Childcare or Family Care: No Living arrangements: alone Additional occupation/education comments: disabled Gender identity (if verbalized by the patient): Female Spiritual care concerns: No Meds Home Medications and Allergies Home Medications Medication Instructions Recorded Confirmed Type amlodipine 5 mg tablet 5 mg PO QAM 09/29/20 09/18/23 History atenolol 50 mg tablet 50 mg PO [facility] 09/29/20 09/18/23 History bupropion HCl 300 mg 24 hr tablet, 300 mg PO [facility] 09/29/20 09/18/23 History extended release (Wellbutrin XL) calcium carbonate 600 mg-vitamin 1 tablet PO QAM 06/21/21 09/18/23 History D3 5 mcg (200 unit) tablet gabapentin 600 mg tablet 600 mg PO TID 06/21/21 09/18/23 History oxybutynin chloride 10 mg 10 mg PO M 06/21/21 09/18/23 History tablet,extended release 24 hr aspirin 325 mg tablet,delayed 650 mg PO DAILY 28 days #56 tabs 07/08/21 09/18/23 Rx release clonazepam 0.5 mg tablet 0.5 mg PO PRN PRN Anxiety 05/02/23 09/18/23 History omeprazole 20 mg caps
[2023-09-19] MEDS: MAGNESIUM SULF 2 GM/WATER 50ML 2 GM/50 ML BAG IVPB (10:11)
[2023-09-19 12:00] VITALS: BP 128/82; PULSE 97; RESP 14; TEMP 36.2; O2SAT 96
[2023-09-19] MEDS: PANTOPRAZOLE 40 MG TABLET PO (13:48)
[2023-09-19] MEDS: POTASSIUM CHLORIDE 20 MEQ ER TABLET 60 MEQ PO (13:50)
[2023-09-19] MEDS: cefTRIAXone 2 GM/NS 100 ML 2 GM/100 ML BAG IVPB (14:01)
[2023-09-19] MEDS: POTASSIUM CHLORIDE 20 MEQ ER TABLET 60 MEQ (14:18)
[2023-09-19 15:51] LABS: Albumin Level 3.3 g/dL (3.4-5.0); Anion Gap 8 mmol/L (4-12); Blood Urea Nitrogen 8 mg/dL (7-18); Calcium 8.9 mg/dL (8.5-10.1); Carbon Dioxide 28 mmol/L (21-32); Chloride 107 mmol/L (98-108); Estimated CRCL calculation 80 ml/min; Estimated Glomerular Filt Rate > 60; Glucose 92 mg/dL (70-99); Osmolality Calculated 294 mOsm/kg (285-295); Phosphorus 3.5 mg/dL (2.6-4.7); Potassium 4.1 mmol/L (3.5-5.1); Sodium 143 mmol/L (136-145)
[2023-09-19 16:00] VITALS: BP 124/78; PULSE 78; RESP 18; TEMP 36.6; O2SAT 97
[2023-09-20] VITALS: BP 104/72; PULSE 73; RESP 19; TEMP 36.4; O2SAT 95
[2023-09-20 05:17] LABS: Basophils Absolute Auto 0.06 K/mm3 (0.00-0.10); Basophils Percent Auto 0.9 % (0.0-1.0); Eosinophils Absolute Auto 0.33 K/mm3 (0.02-0.50); Hematocrit 33.6 % (35.0-49.0); Hemoglobin 10.2 g/dL (12.0-15.0); Immature Granulocyte Absolute 0.01 K/mm3 (0.00-0.00); Immature Granulocyte Percent A 0.2 % (0.0-0.0); Lymphocytes Absolute Auto 2.44 K/mm3 (1.10-4.50); Lymphocytes Percent Auto 37.3 % (18.0-42.0); Mean Corpuscular HGB Conc 30.4 g/dL (32-36); Mean Corpuscular Hemoglobin 23.9 pg (27.0-31.0); Mean Corpuscular Volume 78.9 fL (78.0-102.0); Mean Platelet Volume 9.1 fl (9.2-11.8); Monocytes Absolute Auto 0.46 K/mm3 (0.10-0.90); Neutrophils Absolute Auto 3.25 K/mm3 (1.70-7.20); Neutrophils Percent Auto 49.6 % (50.0-70.0); Platelet Count Result 264 K/mm3 (150-420); Red Blood Count 4.26 M/mm3 (4.20-5.40); Red Cell Distribution Width 18.1 % (11.6-14.4); White Blood Count 6.6 K/mm3 (4.8-10.8)
[2023-09-20 05:46] LABS: Alanine Aminotransferase 25 U/L (14-59); Albumin Level 2.9 g/dL (3.4-5.0); Alkaline Phosphatase 81 U/L (46-116); Anion Gap 9 mmol/L (4-12); Aspartate Amino Transferase 38 U/L (15-37); Bilirubin,Total 0.2 mg/dL (0.00-1.00); Blood Urea Nitrogen 9 mg/dL (7-18); CRP 3.8 mg/dL (0.0-0.9); Calcium 8.3 mg/dL (8.5-10.1); Carbon Dioxide 28 mmol/L (21-32); Chloride 108 mmol/L (98-108); Estimated CRCL calculation 79 ml/min; Estimated Glomerular Filt Rate > 60; Glucose 88 mg/dL (70-99); Magnesium 1.9 mg/dL (1.8-2.4); Osmolality Calculated 297 mOsm/kg (285-295); Sodium 145 mmol/L (136-145); Total Protein 6.6 g/dL (6.4-8.2)
[2023-09-20] MEDS: clonazePAM (*CRX) 0.5 MG TABLET PO (06:51)
[2023-09-20] MEDS: ACETAMINOPHEN/CODEINE (*CRX) 300/30 MG TABLET 2 TAB PO (06:52)
[2023-09-20 08:00] VITALS: BP 123/84; PULSE 80; RESP 14; TEMP 36.2; O2SAT 97
[2023-09-20] MEDS: ASPIRIN 325 MG ENTERIC TABLET 650 MG PO (09:05)
[2023-09-20] MEDS: buPROPion HCL XL (24 HR) 150 MG TABCR 300 MG PO (09:06)
[2023-09-20] MEDS: oxyBUTYnin CHLORIDE XL 5 MG TAB.ER.24 10 MG PO (09:06)
[2023-09-20 09:07] VITALS: PULSE 80
[2023-09-20] MEDS: PANTOPRAZOLE 40 MG TABLET PO (09:07)
[2023-09-20] MEDS: atenoloL 50 MG TABLET PO (09:07)
[2023-09-20] MEDS: amLODIPine BESYLATE 5 MG TABLET PO (09:07)
--- NOTE | 2023-09-20 11:04 | PM.DS ---
DS: Admitting Diagnosis Discharge Date 09/20/23 Admitting Diagnosis confusion, AMS DS: Discharge Diagnosis Discharge Diagnosis (1) UTI (urinary tract infection): Code(s): N39.0 - Urinary tract infection, site not specified Status: Acute Assessment and Plan: -UA with nitrites, bacteria, leukocyte esterase and WBC -Culture pending -Rocephin for treatment, patient reports oral Bactrim for UTIs in the past but not recently (2) Altered mental status: Code(s): R41.82 - Altered mental status, unspecified Status: Acute Assessment and Plan: --UTI most likely cause of hallucinations though zolpidem use/polypharmacy may also have contributed (3) Fibromyalgia: Code(s): M79.7 - Fibromyalgia Status: Acute Assessment and Plan: -Patient on Tylenol #4 routinely tid for maintenance of significant pain, T4 not stocked her so T3 ordered PRN (4) Hypokalemia: Code(s): E87.6 - Hypokalemia Status: Acute Assessment and Plan: -potassium 2.8 on 09/18 AM labs -ordered oral and IV replacement -repeat metabolic panel 1500 09/18 and AM labs 09/19 (5) Hyponatremia: Code(s): E87.1 - Hypo-osmolality and hyponatremia Status: Acute Assessment and Plan: -sodium decreased from 144 on admit to 135 on AM labs 09/18 -recheck metabolic panel at 1500 and with AM labs 09/19 -intervene if continued decline Plan -Continue IV abx pending urine culture -repeat labs tracking potassium and sodium of primary interest -possible discharge tomorrow as patient is feeling well and no current hallucinations -discontinue zolpidem on discharge DS: Summary Hospital Course Reason for hospitalization: UTI Hospital Course: This is a 62 year old female with a PMH of hypertension, chronic pain from degenerative joint disease, fibromyalgia, depression, and anxiety who presented to the ED via EMS with concerns of confusion. The patient states she wasn't feeling poorly but he daughter said she was acting funny. The patient does not recall this. She was admitted for UTI and started on IV antibiotics. Today she is alert and orientated x 4, denies hallucinations, and is acting appropriately. She states she is feeling well and is ready to discharge home. Her labs have been reviewed and her leukocytosis has resolved. Blood cultures have no growth to date. Her urine culture is growing gram negative bacilli. I plan on discharging her home today with nitrofurantoin for another 3 days. Status at Discharge Cognitive/behavioral status at discharge: A&ox4, pleasant Time Spent with Patient Time attestation: Total time spent providing and/or coordinating discharge services: 56 Exam Narrative: General: well appearing, appears stated age. HEENT: normocephalic, atraumatic. Mucous membranes moist. EOMI, PERRLA, bilateral sclera anicteric, no conjunctival injection. Neck supple without JVD, lymphadenopathy, or bruit. Respiratory: clear to auscultation bilaterally. No rales/rhonic/wheezes. Cardiovascular: Regular rate and rhythm, normal S1-S2 upon auscultation. No murmurs, rubs, or clicks. PMI is nondisplaced, capillary refill less than 3 second. Abdomen: Soft, round, no pulsatile masses, nondistended and nontender. No rebound, no guarding. No CVA tenderness, no hepatosplenomegaly. Bowel sounds present to all four quadrants. No high pitch or tinkling sounds, resonant to percussion. Extremities: No cyanosis, clubbing. Small area of swelling to anterior aspect of her foot, Pulses are palpable 2/2. Active ROM to all four extremities. Neuro: Alert and orientated x 4. PERRLA. Cranial nerves 2-12 intact without focal deficit. Skin: Warm, dry, and intact, without rash, erythema, or lesion. Lines: Incisions: Psych: pleasant, cooperative, normal speech, normal affect, no hallucinations, no dysarthria DS: Data Data Completed and Pending Labs on day of discharge: Labs from last 24 hours 09/20/23 09/19/23
[2023-09-20] MEDS: NITROFURANTOIN MONOHYD MACROCR 100 MG CAP PO (11:25)
--- NOTE | 2023-09-21 09:31 | PC.NURSE ---
Discharge call back complete, doing well, cleaning house today, encouraged to rest if tired, got meds picked up and started antibiotic yesterday evening, reviewed dr low Jordan 09/26 at 1415.
== END 2023-09-20 16:00 | disposition home or self-care (01) ==
LOC: CHSED 12:18 → CHS2ND 12:27
PROVIDERS: Nurse Practitioner; Admitting Provider Internal Medicine; Emergency Provider Emergency Medicine; PCP Physician Assistant; Visit Provider Internal Medicine
DX: N39.0 Urinary tract infection, site not specified (principal); I10 Essential (primary) hypertension; E87.1 Hypo-osmolality and hyponatremia; E87.6 Hypokalemia; M79.7 Fibromyalgia; F32.A Depression, unspecified; F12.90 Cannabis use, unspecified, uncomplicated; Z87.891 Personal history of nicotine dependence; Z79.899 Other long term (current) drug therapy; Z79.82 Long term (current) use of aspirin; Z96.642 Presence of left artificial hip joint
CPT/HCPCS: 36415; 70450; 71046; 80053; 80069; 81001; 83605; 83735; 85025; 86140; 87040; 87077; 87086; 87088; 87186; 96365; 96366; 96367; 96368; 99285; A9270; G0378; J0696; J3475; J3480; J7050

== ENCOUNTER 2023-12-20 12:16 | Outpatient (CLI) | payer MEDICARE, SELFPAY ==
--- NOTE | ~2023-12-20 | XR_ITS ---
XR abdomen/kub 1V Ordering provider: Josue Jordan, IMANI History: . hospitalized from a UTI in October F/U . Comparison: None. FINDINGS: BOWEL: Nonobstructive bowel gas pattern. ORGANOMEGALY: None. SIGNIFICANT PATHOLOGIC CALCIFICATIONS: None. OTHER: Bilateral total hip arthroplasty changes. Postoperative changes in the lower lumbar area. Vert ebral plasty of L2 on L3. No free air is seen under the diaphragm. IMPRESSION: NO ACUTE ABDOMINAL FINDINGS. Reviewed, dictated and finalized at location A.
== END 2023-12-20 12:17 | disposition home or self-care (01) ==
LOC: CHSIMG 12:19
PROVIDERS: PCP Physician Assistant; Visit Provider Physician Assistant
DX: N39.46 Mixed incontinence (principal)
CPT/HCPCS: 74018

== ENCOUNTER 2024-01-30 17:42 | Outpatient (CLI) | payer MEDICARE, SELFPAY ==
--- NOTE | ~2024-01-30 | XR_ITS ---
EXAM: XR foot RT 2V DATE: 01/30/2024 18:03 HISTORY: right foot pain non trauma . COMPARISON: None available. FINDINGS: Decreased mineralization. No fracture or dislocation. No lytic or blastic lesion. Mild deg enerative change in multiple midfoot joints. Moderate plantar enthesopathy. No erosion or periosteal change. Soft tissues within normal limits. IMPRESSION: Osteopenia. Polyarticular midfoot osteoarthritis. Moderate plantar enthesopathy. Reviewed, dictated and finalized at location K.
== END 2024-01-30 17:43 | disposition home or self-care (01) ==
LOC: CHSIMG 17:45
PROVIDERS: PCP Physician Assistant; Visit Provider Physician Assistant
DX: M79.671 Pain in right foot (principal); M85.88 Other specified disorders of bone density and structure, other site; M19.071 Primary osteoarthritis, right ankle and foot; M77.8 Other enthesopathies, not elsewhere classified
CPT/HCPCS: 73620

== ENCOUNTER 2024-05-13 09:11 | Emergency (ER) | payer MEDICARE, SELFPAY ==
[2024-05-13] VITALS (7 sets, daily range): BP systolic 133–158; BP diastolic 84–96; PULSE 62–68; RESP 13–20; TEMP 36.5–36.9; O2SAT 95–96
--- NOTE | 2024-05-13 09:13 | ECG_ITS ---
Test Date: 2024-05-13 09:32:32 Measurements Intervals [place] Rate: 64 P: 25 OH: 154 QRS: 37 QRSD: 86 T: 52 QT: 389 QTc: 401 Interpretive Statements SINUS RHYTHM No previous ECG available for comparison Electronically Signed On 05-14-2024 14:52:36 APPRENTICE MACHINIST OUTSIDE by Estevan Hu M.D.
--- NOTE | 2024-05-13 09:16 | ED_ITS ---
HPI - General Adult General Chief complaint: Chest Pain Stated complaint: hot flashes Time Seen by Provider: 05/13/24 09:13 History of Present Illness HPI narrative: Rosalia is a 63F with a PMH of HTN presented to the ED via EMS with a few days of hot and cold flashes. Today she had a pounding headache that was relieved with OTC ibuprofen. However, she had some chest pressure this morning so she called EMS. It had resolved by the time she got to the ED. Related Data Home Medications ?Medication ?Instructions ?Recorded ?Confirmed ?Last Taken ?Type amlodipine 5 mg tablet 5 mg PO QAM 09/29/20 09/18/23 07/07/21 History atenolol 50 mg tablet 50 mg PO QAM 09/29/20 09/18/23 07/07/21 04:00 History bupropion HCl 300 mg 24 hr tablet, 300 mg PO QAM 09/29/20 09/18/23 07/07/21 History extended release (Wellbutrin XL) calcium 600 mg (as 1 tablet PO QAM 06/21/21 09/18/23 Unknown History carbonate)-vitamin D3 5 mcg (200 unit) tablet gabapentin 600 mg tablet 600 mg PO TID 06/21/21 09/18/23 07/05/21 History oxybutynin chloride 10 mg 10 mg PO QAM 06/21/21 09/18/23 Unknown History tablet,extended release 24 hr clonazepam 0.5 mg tablet 0.5 mg PO PRN PRN Anxiety 05/02/23 09/18/23 Unknown History omeprazole 20 mg capsule,delayed 20 mg PO DAILY 05/02/23 09/18/23 Unknown History release acetaminophen 300 mg-codeine 60 mg 1 tablet PO TID 09/18/23 09/18/23 Unknown History tablet zolpidem 10 mg tablet 10 mg PO HS 09/18/23 09/18/23 Unknown History Allergies Allergy/AdvReac Type Severity Reaction Status Date / Time tetracycline Allergy Unknown Rash Verified 05/13/24 09:18 Review of Systems 2 Constitutional: Constitutional: Reports no additional constitutional complaints [facility] Past Medical History Medical History Screening mammogram for breast cancer Cataracts, bilateral Fibromyalgia Arthritis Depression Hypertension History of MRSA infection Degenerative joint disease of left hip Pain of left hip joint Surgical History Surgical History H/O: hysterectomy S/P total hip arthroplasty History of cervical spinal surgery History of kyphoplasty History of total left hip arthroplasty Family History Family History Other Asthma Depression Diabetes mellitus Family history of arthritis Heart disease Hypertension Kidney disorder Social History Social History Smoking packs per day: 0.5 Smoking cigarettes per day: 10.0 Years smoked: 30 Smoking pack-years: 15.00 Smoking status: Light tobacco smoker Tobacco type: cigarettes Second hand tobacco smoke exposure: Yes Additional smoking assessment comments: PT DENIES ALL FORMS OF TOBACCO USE Alcohol intake: current Drinks per week: 2 Alcohol use details: 3-4 per year Substance use: current Substance use type: marijuana Other substance usage details: DAILY Lack of Transportation: YES Lack of Food: Never True Current Housing: I Have Housing Concerned About Future Housing: No Difficulty Paying Gas/Electric Bills: No Difficulty Paying for Meds: No Currently Unemployed: No Education: Bachelor's Degree Difficulty w/ Childcare or Family Care: No Living arrangements: alone Additional occupation/education comments: disabled Gender identity (if verbalized by the patient): Female Spiritual care concerns: No Exam 2 Const: General: cooperative, healthy appearing, comfortable, no acute distress, well developed, alert, awake and Physically active O rientation/consciousness: oriented to person, oriented to place and oriented to time HENMT: Head: normal to inspection, normocephalic and atraumatic Ears: h earing grossly normal bilaterally and external ears normal Face/Nose/Sinus: N ormal external nose present Eyes: General: appearance normal, both eyes and all related structures P eriorbital: periorbital findings normal Sclera: sclerae normal Pupils: E qual, round and reactive pupils present Neck: Neck: normal visual inspection Chest: Chest palpation & inspection: normal inspection of the chest Resp: Effort & Inspection: normal respiratory effort, able to speak in complete sentences and no respiratory distress Auscultation: clear to auscultation bilaterally Cardio: Jugular venous distension: no JVD Rate: regular rate Rhythm: r egular rhythm GI: Inspection: normal to inspection GI Palp: Yes Soft to palpation A uscultation: normal bowel sounds Skin: General skin exam: normal color and no rashes or lesions noted Neuro: General: oriented to person, oriented to place and oriented to time Cranial nerves: Yes Equal, round and reactive pupils present Extrem: General: normal to inspection Course Course Emergency Course: EKG showed NSR with a rate of 64, normal axis, no ST elevation/depression or ectopy. CBC and chemistries are largely unremarkable. COVID+, which would explain the hot flashes and aches. She has had all her COVID vaccines Vital Signs Vital signs: Vital Signs Oxygen Delivery Room Air 05/13/24 09:11 Temperature 97.7 F 05/13/24 09:13 Pulse Rate 68 05/13/24 09:13 Respiratory Rate 20 05/13/24 09:13 Blood Pressure 158/92 H 05/13/24 09:13 Pulse Oximetry 95 05/13/24 09:13 Oxygen Delivery Room Air 05/13/24 09:13 Medical Decision Making Vital Signs Vital Signs: Vital Signs Oxygen Delivery Room Air 05/13/24 09:11 Temperature 97.7 F 05/13/24 09:13 Pulse Rate 68 05/13/24 09:13 Respiratory Rate 20 05/13/24 09:13 Blood Pressure 158/92 H 05/13/24 09:13 Pulse Oximetry 95 05/13/24 09:13 Oxygen Delivery Room Air 05/13/24 09:13 Lab Data 05/13/24 09:25 05/13/24 09:25 Labs: Lab Results 05/13/24 Range/Units 09:25 WBC 5.9 (4.8-10.8) K/mm3 RBC 5.30 (4.20-5.40) M/mm3 Hgb 13.3 (11.7-13.8) g/dL Hct 41.1 (35.0-42.0) % MCV 77.5 L (78.0-102.0) fL MCH 25.1 L (27.0-31.0) pg MCHC 32.4 (32-36) g/dL RDW 17.2 H (11.6-14.4) % Plt Count 293 (150-420) K/mm3 MPV 8.8 L (9.2-11.8) fl Immature Gran % (Auto) 0.3 H (0.0-0.0) % Neut % (Auto) 67.9 (50.0-70.0) % Lymph % (Auto) 25.5 (18.0-42.0) % [place] % (Auto) 4.3 (2.0-11.0) % Eos % (Auto) 1.5 (1.0-6.0) % Baso % (Auto) 0.5 (0.0-1.0) % Lymph # (Auto) 1.50 (1.10-4.50) K/mm3 [place] # (Auto) 0.25 (0.10-0.90) K/mm3 Eos # (Auto) 0.09 (0.02-0.50) K/mm3 Baso # (Auto) 0.03 (0.00-0.10) K/mm3 Abs Immat Gran (auto) 0.02 H (0.00-0.00) K/mm3 Absolute Neuts (auto) 3.99 (1.70-7.20) K/mm3 Absolute Nucleated RBC 0.00 (0.00-0.00) K/mm3 Nucleated RBC % 0.0 (0-0.0) % Sodium 141 (136-145) mmol/L Potassium 3.8 (3.5-5.1) mmol/L Chloride 102 (98-108) mmol/L Carbon Dioxide 26 (21-32) mmol/L Anion Gap 13 H (4-12) mmol/L BUN 16 (7-18) mg/dL Creatinine 0.83 (0.55-1.02) mg/dL Estim Creat Clear Calc 72 ml/min Estimated GFR > 60 (59 - ) Glucose 152 H (70-99) mg/dL Calculated Osmolality 296 H (285-295) mOsm/kg Calcium 9.5 (8.5-10.1) mg/dL Magnesium 1.8 (1.8-2.4) mg/dL Total Bilirubin 0.3 (0.00-1.00) mg/dL AST 17 (15-37) U/L ALT 22 (14-59) U/L Alkaline Phosphatase 113 (46-116) U/L Troponin I 4.4 (0.00-60.4) ng/L Total Protein 7.8 (6.4-8.2) g/dL Albumin 3.5 (3.4-5.0) g/dL TSH 0.75 (0.36-3.74) uIU/mL Influenza A (RT-PCR) Negative (Negative) Influenza B (RT-PCR) Negative (Negative) RSV (RT-PCR) Negative (Negative) SARS-CoV-2 RNA (RT-PCR) Positive A (Negative) Discharge Plan Discharge Clinical Impression: COVID-19 Patient Disposition: Home, Self-Care Condition: Stable Instructions: COVID-19 and Chronic Health Conditions (ED) Patient Language: Swedish Prescriptions: New Paxlovid 300 mg (150 mg x 2)-100 mg tablets,dose pack See Rx Instructions .ROUTE .COMPLEX Qty: 30 0RF Rx Instructions: take TWO 150 mg tablets of nirmatrelvir with ONE 100 mg tablet of ritonavir twice daily for 5 days No Action acetaminophen-codeine 300-60 mg tablet 1 tablet PO TID zolpidem 10 mg tablet 10 mg PO HS pantoprazole 40 mg Tablet,Delayed Release (Dr/Ec) 40 mg PO QAM Qty: 30 0RF nitrofurantoin macrocrystal 100 mg capsule 100 mg PO Q12H Qty: 7 0RF Rx Instructions: must administer with a meal/food clonazepam 0.5 mg tablet 0.5 mg PO PRN PRN (Reason: Anxiety) omeprazole 20 mg capsule,delayed release(DR/EC) 20 mg PO DAILY atenolol 50 mg tablet 50 mg PO QAM amlodipine 5 mg tablet 5 mg PO QAM bupropion HCl [Wellbutrin XL] 300 mg tablet extended release 24 hr 300 mg PO QAM oxybutynin chloride 10 mg tablet extended release 24hr 10 mg PO QAM calcium carbonate-vitamin D3 600 mg-5 mcg (200 unit) Tablet 1 tablet PO QAM gabapentin 600 mg tablet 600 mg PO TID aspirin 325 mg Tablet,Delayed Release (Dr/Ec) 650 mg PO DAILY 28 Days Qty: 56 0RF amoxicillin 500 mg capsule 500 mg PO ONCE Qty: 4 2RF Rx Instructions: Take all 4 tablets one hour prior to dental procedure. Follow-up/Referrals: Nikki,IMANI Bosch [Primary Care Provider] -
[2024-05-13 09:29] LABS: Basophils Absolute Auto 0.03 K/mm3 (0.00-0.10); Basophils Percent Auto 0.5 % (0.0-1.0); Eosinophils Absolute Auto 0.09 K/mm3 (0.02-0.50); Eosinophils Percent Auto 1.5 % (1.0-6.0); Hematocrit 41.1 % (35.0-42.0); Hemoglobin 13.3 g/dL (11.7-13.8); Immature Granulocyte Absolute 0.02 K/mm3 (0.00-0.00); Immature Granulocyte Percent A 0.3 % (0.0-0.0); Lymphocytes Percent Auto 25.5 % (18.0-42.0); Mean Corpuscular HGB Conc 32.4 g/dL (32-36); Mean Corpuscular Hemoglobin 25.1 pg (27.0-31.0); Mean Corpuscular Volume 77.5 fL (78.0-102.0); Mean Platelet Volume 8.8 fl (9.2-11.8); Monocytes Absolute Auto 0.25 K/mm3 (0.10-0.90); Monocytes Percent Auto 4.3 % (2.0-11.0); Neutrophils Absolute Auto 3.99 K/mm3 (1.70-7.20); Neutrophils Percent Auto 67.9 % (50.0-70.0); Platelet Count Result 293 K/mm3 (150-420); Red Cell Distribution Width 17.2 % (11.6-14.4); White Blood Count 5.9 K/mm3 (4.8-10.8)
[2024-05-13 09:59] LABS: Alanine Aminotransferase 22 U/L (14-59); Albumin Level 3.5 g/dL (3.4-5.0); Alkaline Phosphatase 113 U/L (46-116); Anion Gap 13 mmol/L (4-12); Aspartate Amino Transferase 17 U/L (15-37); Bilirubin,Total 0.3 mg/dL (0.00-1.00); Blood Urea Nitrogen 16 mg/dL (7-18); Calcium 9.5 mg/dL (8.5-10.1); Carbon Dioxide 26 mmol/L (21-32); Chloride 102 mmol/L (98-108); Estimated CRCL calculation 72 ml/min; Estimated Glomerular Filt Rate > 60; Glucose 152 mg/dL (70-99); Magnesium 1.8 mg/dL (1.8-2.4); Osmolality Calculated 296 mOsm/kg (285-295); Potassium 3.8 mmol/L (3.5-5.1); Sodium 141 mmol/L (136-145); Total Protein 7.8 g/dL (6.4-8.2); Troponin I 4.4 ng/L (0.00-60.4)
[2024-05-13 10:00] LABS: Thyroid Stimulating Hormone 0.75 uIU/mL (0.36-3.74)
[2024-05-13 10:06] LABS: SARS-CoV-2 RNA PCR Positive (Negative)
[2024-05-13 10:08] LABS: Influenza A QL RT-PCR Negative (Negative); Influenza B QL RT-PCR Negative (Negative); RSV RNA, RT-PCR Negative (Negative)
--- NOTE | 2024-05-13 10:45 | PC.NURSE ---
PT HAS BEEN DC HOME, IS AWAITING TRANSPORT AT THIS TIME. PT DENIES ANY NEEDS OR COMPLAINTS. WILL CONTINUE TO MONITOR.
== END 2024-05-13 10:40 | disposition home or self-care (01) ==
PROVIDERS: Emergency Provider Family Medicine; PCP Physician Assistant
DX: U07.1 COVID-19 (principal); R07.9 Chest pain, unspecified; I10 Essential (primary) hypertension; M79.7 Fibromyalgia; F32.A Depression, unspecified; F17.210 Nicotine dependence, cigarettes, uncomplicated; F12.90 Cannabis use, unspecified, uncomplicated; Z79.82 Long term (current) use of aspirin
CPT/HCPCS: 36415; 80053; 83735; 84443; 84484; 85025; 87637; 93005; 99284

== ENCOUNTER 2024-06-21 11:43 | Emergency (ER) | payer MEDICARE, SELFPAY ==
[2024-06-21] VITALS (8 sets, daily range): BP systolic 130–145; BP diastolic 80–91; PULSE 80–83; RESP 18–20; TEMP 36.8–36.9; O2SAT 94–99
--- NOTE | ~2024-06-21 | CT_ITS ---
EXAMINATION: CT brain wo con DATE: 06/21/2024 12:27 INDICATION: Headache. TECHNIQUE: Computed tomography (CT) of the head was performed without intravenous contrast. The mA wa s adjusted according to patient size. Iterative reconstruction technique was employed. The dose-lengt h product was 605.33 mGy-cm. COMPARISON: Head CT 09/18/2023 FINDINGS: There is no intracranial hemorrhage, acute infarction, or abnormal intracranial mass lesion . The ventricles are normal in size. There are likely changes of ocular lens replacement surgeries. T he paranasal sinuses are clear. The mastoid air cells are normal. 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 IMPRESSION: 1. Normal brain. Reviewed, dictated and finalized at location A. ACORPOREAL TECHNICIAN IMPRESSION: 1. Normal brain.
--- NOTE | ~2024-06-21 | XR_ITS ---
EXAMINATION: XR chest 2V DATE: 06/21/2024 12:27 INDICATION: Weakness. TECHNIQUE: Frontal and lateral views of the chest were obtained. COMPARISON: Chest 2 views 09/18/2023 FINDINGS: There is no pneumonia, pleural effusion, or pneumothorax. The heart size is normal. There a re changes of anterior fusion procedures in cervical spine. IMPRESSION: 1. No acute cardiopulmonary disease. Reviewed, dictated and finalized at location A. OND SAWER
--- OUTSIDE RECORDS SUMMARY | 2024-06-21 11:46 | XMS_ITS | Referral Summary ---
Author Organization [facility] Address [address] [place] [address] Care Team Providers Care Linux Vmware Administrator Name Role Phone Josue Jordan Primary Care Provider [phone] Jalen Gibbs MD Unavailable [phone] Allergies Active Allergy Reactions Criticality Noted Date Comments Tetracyclines Rash Medium 07/24/2018 Medications amLODIPine (NORVASC) 5 mg tablet Take 1 tablet (5 mg total) by mouth every morning Active buPROPion XL (WELLBUTRIN XL) 300 mg 24 hr tablet Take 1 tablet (300 mg total) by mouth every morning Active atenolol (TENORMIN) 50 mg tablet Take 1 tablet (50 mg total) by mouth every morning Active acetaminophen-c odeine (TYLENOL with CODEINE #4) 300-60 mg per tablet Take 1 tablet by mouth every 6 (six) hours as needed for pain 0 Active calcium carbonate-vitam in D3 500 mg(1,250mg) -400 unit chewable tablet Take 1 tablet by mouth daily Active ondansetron (ZOFRAN) 8 mg tablet Take by mouth every 8 (eight) hours as needed for nausea or vomiting Active cyclobenzaprine (FLEXERIL) 10 mg tablet 1 Active metoclopramide (REGLAN) 5 mg tablet 1 Active gabapentin (NEURONTIN) 600 mg tablet Take 1 tablet (600 mg total) by mouth 3 (three) times a day 1 Active zolpidem (AMBIEN) 5 mg tablet 3 Active omeprazole (PriLOSEC) 20 mg capsule Take 1 capsule (20 mg total) by mouth daily Active oxyBUTYnin XL (DITROPAN-XL) 10 mg 24 hr tablet Take 1 tablet (10 mg total) by mouth daily Active amoxicillin 500 mg tablet/capsule Take 1 tablet/capsule (500 mg total) by mouth Take 4 caps by mouth one hour prior to dental procedure Active lutein-zeaxanth in 25-5 mg capsule Take by mouth Active Active Problems Problem Noted Date Diagnosed Date Class 2 severe obesity due t o excess calories with serious comorbidity and body mass index (BMI) of 36.0 to 36.9 in adult 10/19/2022 Hyperlipidemia LDL goal <130 10/19/2022 Atypical chest pain 10/19/2022 Former smoker 10/19/2022 Family history of ischemic h eart disease and other diseases of the circulatory system 10/19/2022 Pharyngeal dysphagia 05/12/2021 Assessment & Plan (05/12/2021 4:41 PM RENT CONTROL OFFICE MANAGER): This is likely secondary to her previous neck surgery. Overall this has to be addressed with diet modifications and maintaining soft diet. No specific GI intervention will be of great help. Chronic nausea 12/16/2020 Gastroesophageal reflux disease 12/16/2020 Assessment & Plan (05/12/2021 4:41 PM RENT CONTROL OFFICE MANAGER): Symptoms are much better at this time. Discussed with the patient use Protonix every other day. BMI 36.0-36.9,adult 12/16/2020 Anxiety 10/11/2018 Essential hypertension 10/11/2018 Insomnia 10/11/2018 Resolved Problems Problem Noted Date Diagnosed Date Resolved Date Esophageal dysphagia 12/16/2020 021 Immunizations Name Administration Dates Next Due Influenza, Quadrivalent, Split, Intramuscular ,03/12/2018 Influenza, Quadrivalent, Spl it, Preservative Free, Intramuscular 02/04/2020 Moderna SARS-CoV-2 Monovalent Vaccination (12+ Y RS) 10/13/2020,09/15/2020 Social History Tobacco Use Types Packs/Day Years Used Date Smoking Tobacco: Former Cigarettes 1 20 0 07/17/1989 - 07/17/2009 Smokeless Tobacco: Never Tobacco Cessation:Counseling Given: Not Answered Alcohol Use Standard Drinks/Week Comments Not Currently 0 (1 standard drink = 0.6 oz pur e alcohol) AUDIT-C Answer Date Recorded Q1: How often do you have a drink containing alcohol? Never 10/19/2022 Q2: How many drinks containi ng alcohol do you have on a typical day when you are drinking? Patient does not drink Q3: How often do you have si x or more drinks on one occasion? Never 10/19/2022 Comments No Sex and Gender Information Value Date Recorded Sex Assigned at Not on file Legal Sex Female 7:14 AM RENT CONTROL OFFICE MANAGER Gender Identity Female 11/29/2019 6:03 PM CDT Sexual Orientation Not on file Last Filed Vital Signs Vital Sign Reading Time Taken Comments Blood Pressure 141/89 11/24/2022 1:57 PM CDT Pulse 79 10/19/2022 3:10 PM CDT Temperature 36.9 ??C (98.5 ??F) 04/07/2021 3:01 PM CS T Respiratory Rate 18 04/29/2021 11:32 AM RENT CONTROL OFFICE MANAGER Oxygen Saturation 93% 10/19/2022 3:10 PM CDT Inhaled Oxygen Concentration - - Weight 103.4 kg (228 lb) 10/19/2022 3:10 PM CDT Height 167.6 cm (5' 6 ) 10/19/2022 3:10 PM CDT Body Mass Index 36.8 10/19/2022 3:10 PM CDT Plan of Treatment Not on file Medical Devices Implanted Type Area Aluminum Polisher Device Identifier Shelf Expiration Date Model / Serial / Lot Abyrx Os-201 Hemasorb Os-Spa Spatula Wax 2gm Bone Sterile - [id number] Implanted:Qty: 1 on 07/21/2020 by Jalen Gibbs MD at [facility] N/A: Spine Cervical Abyrx 02/18/2021 OS-201 / / [id number] [employer] 700-025 I Factor Allograft Putty Syringe Graft 2.5cc Bone - [id number] Implanted:Qty: 1 on 07/21/2020 by Jalen Gibbs MD at [facility] N/A: Spine Cervical [employer] [id number] 03/21/2023 700-025 / / [id number] Lore Spine Cerv 0 Deg W/Hole 7mm Implanted:Qty: 1 on 07/21/2020 by Jalen Gibbs MD at [facility] N/A: Spine Cervical [employer] Spine [id number] 06/26/2024 / [id number] / Description:ID: [id number] Code: [id number] [employer] [id number] Od4 Mm L12 Mm Self Tapping Spine Screw Bone Dark Blue - [id number] Implanted:Qty: 4 on 07/21/2020 by Jalen Gibbs MD at [facility] N/A: Spine Cervical [employer] Spine [id number] / / Lore Spine [id number] 22mm 1 Level Constrain Spine Cervical Plate Bone - [id number] Implanted:Qty: 1 on 07/21/2020 by Jalen Gibbs MD at [facility] N/A: Spine Cervical Lore Spine [id number] / / Insurance [facility] MEDICARE [id number] Advance Directives For more information, please contact: [phone] * Full Code (Latest Code Status on File) Date Activated Date Inactivated Comments 04/07/2021 1:26 PM 04/07/2021 9:05 PM * Full Code Date Activated Date Inactivated Comments 04/07/2021 1:26 PM 04/07/2021 1:26 PM Care Teams Linux Vmware Administrator Relationship Specialty Start Date End Date Josue Jordan PA [address] [place] [address] PCP - General 01/25/19 Jalen Gibbs MD [address] [facility] [address] [place] [address] Consulting Physician Neurosurgery 07/21/20
--- OUTSIDE RECORDS SUMMARY | 2024-06-21 11:46 | XMS_ITS | Continuity of Care Document ---
Author Organization [facility] Address [address] [place] [address] Care Team Providers Care Manager Real Estate Name Role Phone Unavailable Unavailable Unavailable Allergies, Adverse Reactions, Alerts Substance Reaction Status Criticality tetracycline Active No Information Medications Medication Instructions Dosage Effective Dates (start - stop) Status Comments etodolac 400 mg tablet take 1 tablet by ORAL route every 12 hours with food 400 MG - Active bupropion HCl XL 300 mg 24 hr tablet, extended release take 1 tablet by oral route every day 300 MG - Active Savella 50 mg tablet take 1 tablet by or al route 2 times every day 50 MG - Active carisoprodol 350 mg tablet take 1 by Oral route 2 times every day - Active clonazepam 0.5 mg tablet take 1 tablet by ORAL route 2 times every day 0.5 MG - Active Abilify 5 mg tablet take 1 tablet by ora l route every day 5 MG - Active [place] 10 mg-325 mg tablet take 1 tablet by oral route twice a day - Active trazodone 150 mg tablet take 1 tablet by oral route every day at bedtime - Active meloxicam 15 mg tablet take 1 tablet by oral route every day 15 MG - Active Procedures Procedure Date OFFICE/OUTPATIENT VISIT, NEW OFFICE/OUTPATIENT VISIT, NEW Advance Directives Directive Yes / No Effective Date File Name No Information Encounters Encounter Description Practice Location Reason(s) For Visit Diagnoses Date Provider Providers Copied on Encounter [facility], [address], [place], [id number], [facility] [place] [facility] No Information 1-201 5 No Information OFFICE/OUTPA TIENT VISIT, NEW [facility], [address], [id number], [facility] [place] [facility] low back pain (chief complaint) Myalgia and myositis, unspecifiedLumb osacral spondylosis without myelopathyBursi tis 8-201 4 No Information Referring Provider: Dipti Cobos, [address] , , [address] . tel:[phone] OFFICE/OUTPA TIENT VISIT, [facility] [address], [place], [id number], [facility] No Information [address] [place], [id number], [place]. tel:[phone] Referring Provider: Sheridan Bañuelos, [address] [place], [place] [address]richar [facility] [place], [address]. tel:[phone] Family History Family Member Type Diagnosis Age At Onset Problem (finding) Family history of hyper tension Problem (finding) Family history of Diabe catia mellitus Problem (finding) Family history of heart problems Payers Payer name Insurance type Covered democrat ID Authoriza tion(s) Medicare Part B [id number] Social History Type Description Quantity Date Captured Comments Sex Female Smoking Status No Information Chief Complaint And Reason For Visit No Information Reason For Referral Reason For Referral No Information History Of Present Illness Encounter Date Complaint History Of Prese nt Illness No Information Functional Status Date Functional Assessmen t No Information Instructions Date Instruction Additional Infor mation No Information Assessments Type Assessment Date No Information Patient Care Teams Name Effective Dates (start - stop) Status Members No Information
--- OUTSIDE RECORDS SUMMARY | 2024-06-21 11:46 | XMS_ITS | Clinical Summary ---
Author Organization [facility] Address [address] [place] [address] Care Team Providers Care Global Account Manager Name Role Phone Josue Jordan Primary Care Provider [phone] Jalen Gibbs MD Unavailable [phone] Allergies Active Allergy Reactions Criticality Noted Date [...] 05/12/2021 Assessment & Plan (05/12/2021 4:41 PM SMALL ENGINE TRAINER): This is likely secondary to her previous neck surgery. Overall this has to be addressed with diet modifications and maintaining soft diet. No specific GI intervention will be of great help. Chronic nausea 12/16/2020 Gastroesophageal reflux disease 12/16/2020 Assessment & Plan (05/12/2021 4:41 PM SMALL ENGINE TRAINER): Symptoms are much better at this time. [...] SARS-CoV-2 Monovalent Vaccination (12+ Y RS) 10/13/2020,09/15/2020 Surgical History Surgery Date Site/Laterality Comments HYSTERECTOMY CARPAL TUNNEL RELEASE LUMBAR LAMINECTOMY 05/22/2018 - 05/21/2019 L2-3 POSTERIOR FUSION LUMBAR SPINE 05/22/2004 - 05/21/2005 L4- S1 ANTERIOR CERVICAL DISCECTOMY W/ FUSION C5-7 TOTAL HIP ARTHROPLASTY Left KYPHOPLASTY Medical History Medical History Date Comments Spinal stenosis of lumbar region with neurogenic claudication Anxiety and depression Hypertension Osteoarthritis Obesity (BMI 35.0-39.9 without comorbidity) BMI 39 Cervical spondylosis with radiculopathy Bipolar 1 disorder (HCC) GERD (gastroesophageal reflux disease) Social History Tobacco Use Types Packs/Day Years [...] on file Legal Sex Female 7:14 AM SMALL ENGINE TRAINER Gender Identity Female 11/29/2019 6:03 PM CDT Sexual Orientation Not on file Obstetrics History Last Filed Vital Signs Vital Sign Reading Time Taken Comments Blood Pressure 141/89 11/24/2022 1:57 PM CDT Pulse 79 10/19/2022 3:10 PM CDT Temperature 36.9 ??C (98.5 ??F) 04/07/2021 3:01 PM CS T Respiratory Rate 18 04/29/2021 11:32 AM SMALL ENGINE TRAINER Oxygen Saturation 93% 10/19/2022 3:10 PM CDT Inhaled Oxygen Concentration - - Weight 103.4 kg (228 lb) 10/19/2022 3:10 PM CDT Height 167.6 cm (5' 6 ) 10/19/2022 3:10 PM CDT Body Mass Index 36.8 10/19/2022 3:10 PM CDT Plan of Treatment Health Maintenance Due Date Last Done Comments Breast Cancer Screening-Mammogram 1958 Colon Cancer Screening-Colonoscopy 1958 Depression Screening 1958 Hepatitis C Screening 1958 Osteoporosis Screening-Bone Density Scan 1958 DTaP/Tdap/Td Vaccine (1 - Tdap) 1969 Hepatitis B Screening 1976 Lung Cancer Screening 2008 Zoster Vaccine (1 of 2) 2008 Fall Risk Assessment 04/07/2022 04/07/2021 Pneumococcal vaccine 65+ (1 of 1 - PCV) 12/28/2023 Well Visit 65+ 12/28/2023 Covid-19 Vaccine (3 - 2023-2 5 season) 2024 10/13/2020, 09/15/2020 Influenza Vaccine (#1) 2024 , 02/05/2020, 02/04/2020, Additional history exists Medical Devices Implanted Type Area Chair And Couch Maker Device Identifier Shelf Expiration Date Model / Serial / Lot Abyrx Os-201 Hemasorb Os-Spa Spatula Wax 2gm Bone Sterile - [id number] Implanted:Qty: 1 on 07/21/2020 by Jalen Gibbs MD at [facility] N/A: Spine Cervical Abyrx 02/18/2021 OS-201 / / [id number] [employer] 700-025 I Factor Allograft Putty Syringe Graft 2.5cc Bone - [id number] Implanted:Qty: 1 on 07/21/2020 by Jalen Gibbs MD at [facility] N/A: Spine Cervical [employer] [id number] 03/21/2023 700-025 / / [id number] Miller Spine Cerv 0 Deg W/Hole 7mm Implanted:Qty: 1 on 07/21/2020 by Jalen Gibbs MD at [facility] N/A: Spine Cervical Miller Spine [id number] 06/26/2024 / [id number] / Description:ID: [id number] Code: [id number] K2m [facility] [id number] Od4 Mm L12 Mm Self Tapping Spine Screw Bone Dark Blue - [id number] Implanted:Qty: 4 on 07/21/2020 by Jalen Gibbs MD at [facility] N/A: Spine Cervical Lore Spine [id number] / / Miller Spine [id number] 22mm 1 Level Constrain Spine Cervical Plate Bone - [id number] Implanted:Qty: 1 on 07/21/2020 by Jalen Gibbs MD at [facility] N/A: Spine Cervical Miller Spine [id number] / / Insurance IDGA [facility] Address: [address] [address] [place] [address] IDPA Advance Directives For more information, please contact: [phone] * Full Code (Latest Code Status on File) Date Activated Date Inactivated Comments 04/07/2021 1:26 PM 04/07/2021 9:05 PM * Full Code Date Activated Date Inactivated Comments 04/07/2021 1:26 PM 04/07/2021 1:26 PM Care Teams Global Account Manager Relationship Specialty Start Date End Date Josue Jordan PA [address] [place] [address] PCP - General 01/25/19 Jalen Gibbs MD [address] [place] [address] [place] [address] Consulting Physician Neurosurgery 07/21/20
--- OUTSIDE RECORDS SUMMARY | 2024-06-21 11:46 | XMS_ITS | Clinical Summary ---
Author Organization [facility] Address [address] [place] [address] Phone Care Team Providers Care Comptroller Name Role Phone Josue Jordan Gerald LOPEZ Primary Care Provider [phone] Itzel ESCALANTE MD, Noris Unavailable [phone] Allergies Active Allergy Reactions Criticality Noted Date Comments Tetracyclines & Related Rash Medium 07/24/2018 Medications Non-Aspirin Pain Reliever 325 MG Tablet 07/09/2021 Active Acetaminophen-Cod eine 300-60 MG Tablet Take 1 Tablet by mouth. 10/31/2019 Active amLODIPine (NORVASC) 5 MG Tablet 08/25/2021 Active amoxicillin (AMOXIL) 500 MG Capsule 09/13/2021 Active atenolol (TENORMIN) 50 MG Tablet 08/25/2021 Active buPROPion (WELLBUTRIN) 300 MG TABLET SR 24 HR XL tablet 08/25/2021 Active Calcium Carb-Cholecalcife rol 500-400 MG-UNIT Chewable Tablet Take 1 Tablet by mouth daily. Active cyclobenzaprine (FLEXERIL) 10 MG Tablet 09/02/2021 Active gabapentin (NEURONTIN) 600 MG Tablet 09/07/2021 Active metoclopramide (REGLAN) 5 MG Tablet 04/08/2021 Active nystatin (MYCOSTATIN) 228379 UNIT/GM Cream 07/15/2021 Active omeprazole (PriLOSEC) 20 MG CAPSULE DELAYED RELEASE 08/25/2021 Active Senna-S 8.6-50 MG Tablet 07/08/2021 Active pantoprazole (PROTONIX) 40 MG Tablet Delayed Response 07/05/2021 Active trospium (SANCTURA) 20 MG Tablet Take 1 Tablet by mouth 2 times daily. 180 Tablet 3 09/20/2021 Active oxybutynin (DITROPAN-XL) 10 MG TABLET SR 24 HRIndications:Mix ed incontinence Take 1 Tablet by mouth daily. 90 Tablet 3 07/04/2022 Active Active Problems No known active problems Immunizations Immunization Administration Dates Next Due Covid-19, Mrna, Lnp-s, Pf, 1 00 Mcg Or 50 Mcg Dose (MODERNA) 09/15/2020 Influenza Vaccine, Quadrivalent, PF 03/04/2021,0 02/04/2020 Influenza, Injectable, Quadrivalent 01/29/2019,1 Social History Tobacco Use Types Packs/Day Years Used Date Smoking Tobacco: Former Cigarettes Q uit: 2011 Smokeless Tobacco: Never Tobacco Cessation:Counseling Given: No Alcohol Use Standard Drinks/Week Comments Yes 0 (1 standard drink = 0.6 oz pur e alcohol) rarely Comments Unknown Sex and Gender Information Value Date Recorded Sex Assigned at Not on file Legal Sex Female 10:30 PM CDT Gender Identity Not on file Sexual Orientation Not on file Last Filed Vital Signs Vital Sign Reading Time Taken Comments Blood Pressure 130/82 2021 10:47 AM CDT Pulse 106 2021 10:47 AM CDT Temperature 36.2 ??C (97.1 ??F) 2021 10:47 AM C DT Respiratory Rate 20 2021 10:47 AM CDT Oxygen Saturation 96% 2021 10:47 AM CDT Inhaled Oxygen Concentration - - Weight - - Height 165.1 cm (5' 5 ) 2021 10:47 AM CDT Body Mass Index - - Plan of Treatment Health Maintenance Due Date Last Done Comments DEXA Bone Density 1960 Hepatitis C Virus (HCV) Screening 1958 TdaP Immunization 1958 Pap Smear 12/28/1979 Cervical Cancer Screening (CCS) 1988 HPV/Cotest 1988 Colonoscopy 12/28/2003 Colorectal Cancer Screening 12/28/2003 Cologuard 2008 Immunochemical Fecal Occult Blood 2008 Mammogram 2008 Pneumococcal Immunization (50+ years) (1 of 1 - PCV) 2008 Zoster Immunization (1 of 2) 2008 Influenza Immunization (#1) 01/21/202402/19, 02/05/2020, 02/04/2020, Additional history exists SARS-COV-2 Immunization ( season) 2024 04/14/2021, 10/13/2020, 09/15/2020 Respiratory Syncytial Virus (RSV) Immunization (Adult) (1 - 1-dose 75+ series) 2033 Hepatitis B Immunization Aged Out No longer eligible based on patient's age to complete this topic Meningococcal Immunization (ACWY) Aged Out No longer eligible based on patient's age to complete this topic Rotavirus Immunization Aged Out No lo nger eligible based on patient's age to complete this topic Insurance MEDICARE C HU[employer] Advance Directives Documents on File Type Date Recorded Patient Hair Tinter Expl anation Other Advance Directive 10/04/2021 10:12 AM PRD Care Teams Comptroller Relationship Specialty Start Date End Date Josue Jordan PAC [address] [place] [address] PCP - General Physician Coremaking Machine Setter 07/05/21 Noris Robbins III, MD [address] [place] [address] Consulting Physician Urology 12/27/21
--- NOTE | 2024-06-21 11:52 | ED.WEAKNESS ---
HPI - Weakness General Chief complaint: Weakness Stated complaint: weakness Source: patient and EMS Mode of arrival: EMS Limitations: no limitations History of Present Illness HPI Narrative: patient is a 63-year-old female with fibromyalgia here for bilateral hand weakness and numbness. She does have a history of carpal tunnel syndrome. She does get numbness all around at times as well from the fibromyalgia. And neuropathy. She does not have chest pain or shortness of breath. She does not have any weakness otherwise or focal changes. No facial changes or difficulty swallowing or speaking or comprehension. MD Complaint: generalized weakness ( Bilateral upper extremities around the hands and a general weakness feeling), numbness, tingling and lack of energy Onset (ago): day(s) (2) Duration: intermittent Location: generalized, LUE, RUE, left hand and right hand Migration: none Severity: mild Severity scale (1-10): 2 Quality: tingling, numbness and sharp Relieving factors: none Exacerbating factors: none Context: other ( patient has fibromyalgia and other chronic pain syndromes with neuropathy) Associated symptoms: denies other symptoms Related Data Home Medications ?Medication ?Instructions ?Recorded ?Confirmed ?Last Taken ?Type amlodipine 5 mg tablet 5 mg PO QAM 09/29/20 09/18/23 07/07/21 History atenolol 50 mg tablet 50 mg PO QAM 09/29/20 09/18/23 07/07/21 04:00 History bupropion HCl 300 mg 24 hr tablet, 300 mg PO QAM 09/29/20 09/18/23 07/07/21 History extended release (Wellbutrin XL) calcium 600 mg (as 1 tablet PO QAM 06/21/21 09/18/23 Unknown History carbonate)-vitamin D3 5 mcg (200 unit) tablet gabapentin 600 mg tablet 600 mg PO TID 06/21/21 09/18/23 07/05/21 History oxybutynin chloride 10 mg 10 mg PO QAM 06/21/21 09/18/23 Unknown History tablet,extended release 24 hr clonazepam 0.5 mg tablet 0.5 mg PO PRN PRN Anxiety 05/02/23 09/18/23 Unknown History omeprazole 20 mg capsule,delayed 20 mg PO DAILY 05/02/23 09/18/23 Unknown History release acetaminophen 300 mg-codeine 60 mg 1 tablet PO TID 09/18/23 09/18/23 Unknown History tablet zolpidem 10 mg tablet 10 mg PO HS 09/18/23 09/18/23 Unknown History Allergies Allergy/AdvReac Type Severity Reaction Status Date / Time tetracycline Allergy Unknown Rash Verified 05/13/24 09:18 Review of Systems Review of Systems: All systems reviewed & are unremarkable except as noted in HPI and below Constitutional: Constitutional: Reports no additional constitutional complaints Eyes: Eyes: Reports no additional eye complaints ENT: Reports system reviewed and no additional complaints, except as documented Cardiovascular: Cardiovascular: Reports no additional cardiovascular complaints Respiratory: Respiratory: Reports no additional respiratory complaints Gastrointestinal: Gastrointestinal: Reports no additional gastrointestinal complaints Genitourinary: Genitourinary: Reports no additional female genitourinary complaints Musculoskeletal: Musculoskeletal: Reports no additional musculoskeletal complaints Integumentary/Breasts: Skin/Breast: Reports system reviewed and no additional complaints, except as docu Neurologic: Reports system reviewed and no additional complaints, except as documented Psychiatric: Psychiatric: Reports no additional psychiatric complaints Endocrine: Endocrine: Reports no additional endocrine complaints Hematologic/Lymphatic: Hematologic/Lymphatic: Reports no additional hematologic/lymphatic complaints Allergic/Immunologic: Allergic/Immunologic: Reports no additional allergic/immunologic complaints PMFSH Past Medical History Medical History Screening mammogram for breast cancer Cataracts, bilateral Fibromyalgia Arthritis Depression Hypertension History of MRSA infection Degenerative joint disease of left hip Pain of left hip joint Surgical History Surgical History H/O: hysterectomy S/P total hip arthroplasty History of cervical spinal surgery History of kyphoplasty History of total left hip arthroplasty Family History Family History Other Asthma Depression Diabetes mellitus Family history of arthritis Heart disease Hypertension Kidney disorder Social History Social History Smoking packs per day: 0.5 Smoking cigarettes per day: 10.0 Years smoked: 30 Smoking pack-years: 15.00 Smoking status: Light tobacco smoker Tobacco type: cigarettes Second hand tobacco smoke exposure: Yes Additional smoking assessment comments: PT DENIES ALL FORMS OF TOBACCO USE Alcohol intake: current Drinks per week: 2 Alcohol use details: 3-4 per year Substance use: current Substance use type: marijuana Other substance usage details: DAILY Lack of Transportation: YES Lack of Food: Never True Current Housing: I Have Housing Concerned About Future Housing: No Difficulty Paying Gas/Electric Bills: No Difficulty Paying for Meds: No Currently Unemployed: No Education: Bachelor's Degree Difficulty w/ Childcare or Family Care: No Living arrangements: alone Additional occupation/education comments: disabled Gender identity (if verbalized by the patient): Female Spiritual care concerns: No Exam Const: General: healthy appearing Nutritional Appearance: well nourished Orientation/consciousness: patient oriented x3 Limitations: no limitations HENMT: Head: normal to inspection Ears: external ears normal Face/Nose/Sinus: Normal external nose present Eyes: Conjunctivae: conjunctivae normal Pupils: Equal, round and reactive pupils present EOM: EOMs intact bilaterally Neck: Neck: normal visual inspection Chest: Chest palpation & inspection: normal inspection of the chest Resp: Effort & Inspection: normal respiratory effort and not labored Auscultation: clear to auscultation bilaterally and no crackles Cardio: Rate: regular rate Rhythm: regular rhythm Heart sounds: no murmurs GI: Inspection: non-distended GI Palp: Yes Soft to palpation and No Tenderness to palpation present (GI) Auscultation: normal bowel sounds : General: Yes bladder normal to palpation Back/Spine/Pelvis: Back: no CVA tenderness Skin: General skin exam: normal color Rashes: no rashes Wounds: no wounds Neuro: General: patient oriented x3 Cranial nerves: Yes Nystagmus not present Speech: normal speech Gait exam (Neuro): Normal gait present Extrem: General: normal to inspection Psych: Mental Status: mental status grossly normal Affect: No normal affect and Anxious affect present Attitude: cooperative Course Vital Signs Vital signs: Vital Signs Temperature 36.8 C 06/21/24 11:46 Pulse Rate 83 06/21/24 11:46 Respiratory Rate 20 06/21/24 11:46 Blood Pressure 145/91 H 06/21/24 11:46 Pulse Oximetry 96 06/21/24 11:46 Oxygen Delivery Room Air 06/21/24 11:46 Temperature 36.9 C 06/21/24 13:45 Pulse Rate 80 06/21/24 13:46 Respiratory Rate 06/21/24 13:46 Blood Pressure 138/89 06/21/24 13:46 Pulse Oximetry 94 06/21/24 13:46 Oxygen Delivery Room Air 06/21/24 13:46 MDM - Weakness MDM Narrative Medical decision making narrative: patient is a 63-year-old female with fibromyalgia having bilateral hand numbness and tingling and weakness. This has been going on for 2 days. We will do a workup at this time. Reassurance that heart attack and stroke which is her biggest concern at this time is not likely with current complaints. Lab Data Attestation: I reviewed the patient's lab results. 06/21/24 12:30 06/21/24 12:30 Labs: Lab Results 06/21/24 06/21/24 06/21/24 Range/Units 11:52 12:30 13:28 WBC 9.7 (4.8-10.8) K/mm3 RBC 5.49 H (4.20-5.40) M/mm3 Hgb 13.9 H (11.7-13.8) g/dL Hct 44.4 H (35.0-42.0) % MCV 80.9 (78.0-102.0) fL MCH 25.3 L (27.0-31.0) pg MCHC 31.3 L (32-36) g/dL RDW 17.9 H (11.6-14.4) % Plt Count 345 (150-420) K/mm3 MPV 8.9 L (9.2-11.8) fl Immature Gran % (Auto) 0.4 H (0.0-0.0) % Neut % (Auto) 72.7 H (50.0-70.0) % Lymph % (Auto) 20.6 (18.0-42.0) % [place] % (Auto) 4.7 (2.0-11.0) % Eos % (Auto) 1.2 (1.0-6.0) % Baso % (Auto) 0.4 (0.0-1.0) % Lymph # (Auto) 1.99 (1.10-4.50) K/mm3 [place] # (Auto) 0.45 (0.10-0.90) K/mm3 Eos # (Auto) 0.12 (0.02-0.50) K/mm3 Baso # (Auto) 0.04 (0.00-0.10) K/mm3 Abs Immat Gran (auto) 0.04 H (0.00-0.00) K/mm3 Absolute Neuts (auto) 7.03 (1.70-7.20) K/mm3 Absolute Nucleated RBC 0.00 (0.00-0.00) K/mm3 Nucleated RBC % 0.0 (0-0.0) % Sodium 137 (136-145) mmol/L Potassium 4.2 (3.5-5.1) mmol/L Chloride 101 (98-108) mmol/L Carbon Dioxide 25 (21-32) mmol/L Anion Gap 11 (4-12) mmol/L BUN 15 (7-18) mg/dL Creatinine 0.84 (0.55-1.02) mg/dL Estim Creat Clear Calc 73 ml/min Estimated GFR > 60 (59 - ) Glucose 118 H (70-99) mg/dL Hemoglobin A1c 5.6 (<5.7) % Calculated Osmolality 285 (285-295) mOsm/kg Calcium 9.8 (8.5-10.1) mg/dL Total Bilirubin 0.3 (0.00-1.00) mg/dL AST 27 (15-37) U/L ALT 37 (14-59) U/L Alkaline Phosphatase 123 H (46-116) U/L Troponin I 6.1 (0.00-60.4) ng/L Total Protein 8.2 (6.4-8.2) g/dL Albumin 3.9 (3.4-5.0) g/dL TSH 0.57 (0.36-3.74) uIU/mL Urine Color Light yellow (Yellow) Urine Appearance Clear (Clear) Urine pH 7.5 (5.0-8.0) Ur Specific [place] 1.010 (1.010-1.020) Urine Protein Negative (Negative) Urine Glucose (UA) Negative (Negative) Urine Ketones Negative (Negative) Ur Blood (Man) Negative (Negative) Urine Nitrate Negative (Negative) Urine Bilirubin Negative (Negative) Urine Urobilinogen 0.2 (0.2-1.0) mg/dL Leukocyte Esterase Rfl Negative (Negative) MASSIMO/UL Influenza A (RT-PCR) Negative (Negative) Influenza B (RT-PCR) Negative (Negative) RSV (RT-PCR) Negative (Negative) SARS-CoV-2 RNA (RT-PCR) Negative (Negative) Imaging Data Attestation: I personally reviewed and interpreted this imaging study as follows: Radiologist's impression: CT scan of the head was negative for acute process chest x-rays negative for acute process ECG Data EKG #1: Attestation: I personally reviewed and interpreted this ECG as follows: ECG completion date: 06/21/24 ECG completion time: 12:10 EKG Interpretation: normal rate, sinus rhythm, no ectopy, no ST changes, normal QRS, normal QT, prolonged QT and NL axis Discharge Plan Discharge Clinical Impression: Fibromyalgia, Carpal tunnel syndrome on both sides, Weakness Patient Disposition: Home, Self-Care Condition: Stable Instructions: Weakness (ED) Additional Instructions: Please follow-up with primary doctor in the next week. I suggest further evaluation for carpal tunnel syndrome of your wrists. You may need further fibromyalgia treatment with the primary doctor as well. Patient Language: Uzbek Prescriptions: No Action acetaminophen-codeine 300-60 mg tablet 1 tablet PO TID zolpidem 10 mg tablet 10 mg PO HS pantoprazole 40 mg Tablet,Delayed Release (Dr/Ec) 40 mg PO QAM Qty: 30 0RF nitrofurantoin macrocrystal 100 mg capsule 100 mg PO Q12H Qty: 7 0RF Rx Instructions: must administer with a meal/food Paxlovid 300 mg (150 mg x 2)-100 mg tablets,dose pack See Rx Instructions .ROUTE .COMPLEX Qty: 30 0RF Rx Instructions: take TWO 150 mg tablets of nirmatrelvir with ONE 100 mg tablet of ritonavir twice daily for 5 days clonazepam 0.5 mg tablet 0.5 mg PO PRN PRN (Reason: Anxiety) omeprazole 20 mg capsule,delayed release(DR/EC) 20 mg PO DAILY atenolol 50 mg tablet 50 mg PO QAM amlodipine 5 mg tablet 5 mg PO QAM bupropion HCl [Wellbutrin XL] 300 mg tablet extended release 24 hr 300 mg PO QAM oxybutynin chloride 10 mg tablet extended release 24hr 10 mg PO QAM calcium carbonate-vitamin D3 600 mg-5 mcg (200 unit) Tablet 1 tablet PO QAM gabapentin 600 mg tablet 600 mg PO TID aspirin 325 mg Tablet,Delayed Release (Dr/Ec) 650 mg PO DAILY 28 Days Qty: 56 0RF amoxicillin 500 mg capsule 500 mg PO ONCE Qty: 4 2RF Rx Instructions: Take all 4 tablets one hour prior to dental procedure. Follow-up/Referrals: UNKNOWN,DOCTOR [Non-Staff] - Time of Disposition: 13:55
--- NOTE | 2024-06-21 12:09 | PC.NURSE ---
Covid culture sent to lab
--- NOTE | 2024-06-21 12:10 | ECG_ITS ---
Test Date: 2024-06-21 12:35:22 Measurements Intervals [place] Rate: 79 P: 22 AL: 151 QRS: 15 QRSD: 88 T: 11 QT: 365 QTc: 420 Interpretive Statements SINUS RHYTHM Compared to ECG 05/13/2024 09:32:32 No significant changes Electronically Signed On 06-21-2024 14:12:40 STAGECRAFT PROFESSOR by Shannon Correia M.D.
[2024-06-21 12:34] LABS: Basophils Absolute Auto 0.04 K/mm3 (0.00-0.10); Basophils Percent Auto 0.4 % (0.0-1.0); Eosinophils Absolute Auto 0.12 K/mm3 (0.02-0.50); Eosinophils Percent Auto 1.2 % (1.0-6.0); Hematocrit 44.4 % (35.0-42.0); Hemoglobin 13.9 g/dL (11.7-13.8); Immature Granulocyte Absolute 0.04 K/mm3 (0.00-0.00); Immature Granulocyte Percent A 0.4 % (0.0-0.0); Lymphocytes Absolute Auto 1.99 K/mm3 (1.10-4.50); Lymphocytes Percent Auto 20.6 % (18.0-42.0); Mean Corpuscular HGB Conc 31.3 g/dL (32-36); Mean Corpuscular Hemoglobin 25.3 pg (27.0-31.0); Mean Corpuscular Volume 80.9 fL (78.0-102.0); Mean Platelet Volume 8.9 fl (9.2-11.8); Monocytes Absolute Auto 0.45 K/mm3 (0.10-0.90); Monocytes Percent Auto 4.7 % (2.0-11.0); Neutrophils Absolute Auto 7.03 K/mm3 (1.70-7.20); Neutrophils Percent Auto 72.7 % (50.0-70.0); Platelet Count Result 345 K/mm3 (150-420); Red Blood Count 5.49 M/mm3 (4.20-5.40); Red Cell Distribution Width 17.9 % (11.6-14.4); White Blood Count 9.7 K/mm3 (4.8-10.8)
[2024-06-21 12:44] LABS: Hemoglobin A1C 5.6 % (<5.7)
[2024-06-21 12:48] LABS: SARS-CoV-2 RNA PCR Negative (Negative)
[2024-06-21 12:49] LABS: Influenza A QL RT-PCR Negative (Negative); Influenza B QL RT-PCR Negative (Negative); RSV RNA, RT-PCR Negative (Negative)
[2024-06-21 12:52] LABS: Alanine Aminotransferase 37 U/L (14-59); Albumin Level 3.9 g/dL (3.4-5.0); Alkaline Phosphatase 123 U/L (46-116); Anion Gap 11 mmol/L (4-12); Aspartate Amino Transferase 27 U/L (15-37); Bilirubin,Total 0.3 mg/dL (0.00-1.00); Blood Urea Nitrogen 15 mg/dL (7-18); Calcium 9.8 mg/dL (8.5-10.1); Carbon Dioxide 25 mmol/L (21-32); Chloride 101 mmol/L (98-108); Estimated CRCL calculation 73 ml/min; Estimated Glomerular Filt Rate > 60; Glucose 118 mg/dL (70-99); Osmolality Calculated 285 mOsm/kg (285-295); Potassium 4.2 mmol/L (3.5-5.1); Sodium 137 mmol/L (136-145); Total Protein 8.2 g/dL (6.4-8.2)
[2024-06-21 12:57] LABS: Thyroid Stimulating Hormone 0.57 uIU/mL (0.36-3.74); Troponin I 6.1 ng/L (0.00-60.4)
[2024-06-21 13:34] LABS: Appearance Urine Clear (Clear); Bilirubin Urine Negative (Negative); Blood Urine Negative (Negative); Color Urine Light Yellow (Yellow); Glucose Urine UA Negative (Negative); Ketones Urine Negative (Negative); Nitrate Urine Negative (Negative); Protein Urine Negative (Negative); Urobilinogen Urine 0.2 mg/dL (0.2-1.0); pH Urine 7.5 (5.0-8.0)
[2024-06-21 13:40] LABS: Add Urine Microscopic? NO; Leukocyte Esterase Ur Negative LEU/UL (Negative)
== END 2024-06-21 14:01 | disposition home or self-care (01) ==
PROVIDERS: Emergency Provider Emergency Medicine; PCP Physician Assistant
DX: M79.7 Fibromyalgia (principal); G56.03 Carpal tunnel syndrome, bilateral upper limbs; R53.1 Weakness; G62.9 Polyneuropathy, unspecified; G89.4 Chronic pain syndrome; F17.210 Nicotine dependence, cigarettes, uncomplicated; F12.90 Cannabis use, unspecified, uncomplicated; Z20.822 Contact with and (suspected) exposure to COVID-19; Z79.899 Other long term (current) drug therapy
CPT/HCPCS: 36415; 70450; 71046; 80053; 81003; 83036; 84443; 84484; 85025; 87637; 93005; 99284

== ENCOUNTER 2024-07-16 07:25 | Outpatient (CLI) | payer MEDICARE, SELFPAY ==
--- NOTE | ~2024-07-16 | XR_ITS ---
EXAMINATION: XR hip BI 2V w AP pelvis DATE: 07/16/2024 08:03 INDICATION: Bilateral hip pain. TECHNIQUE: An anteroposterior view of the pelvis and 2 views of each hip were obtained. COMPARISON: Hip radiographs 08/16/2022, 04/30/19 FINDINGS: There is lumbar dextrocurvature. There are changes of vertebroplasty in L3. There are alicia es of anterior and posterior fusion procedures from L4 to S1 with pedicle screws and interbody device s. There are bilateral total hip arthroplasties in near-anatomic alignment. No fracture. No periprost hetic lucency to suggest loosening or infection. IMPRESSION: 1. Bilateral total hip arthroplasties in near-anatomic alignment. Reviewed, dictated and finalized at location A. [facility]
--- NOTE | ~2024-07-16 | MM_ITS ---
EXAMINATION: MM screening alex BI w nancy HISTORY: Screening mammogram TECHNIQUE: Craniocaudal and mediolateral oblique 3-D tomosynthesis images were obtained and synthetic 2-D images were generated. CAD analysis was submitted and interpreted. COMPARISON: 05/25/2023, 07/05/2021, 06/16/2020 BREAST PARENCHYMAL COMPOSITION:Not Dense. The breasts are almost entirely fatty FINDINGS: No suspicious mass, calcification, or architectural distortion are identified in either francine ast to suggest malignancy. There has been no suspicious interval change. IMPRESSION: No mammographic evidence of malignancy. Recommend routine screening mammography in one year. BI-RADS Category 1: Negative Reviewed, dictated and finalized at location . [employer]
--- OUTSIDE RECORDS SUMMARY | 2024-07-16 07:31 | XMS_ITS | Clinical Summary ---
Author Organization [facility] Address [address] [place] [address] Phone Care Team Providers Care Die Casting Machine Maintainer Name Role Phone Josue Jordan Gerald LOPEZ Primary Care Provider [phone] Itzel ESCALANTE MD, Noris Unavailable [phone] Allergies Active Allergy Reactions Criticality Noted Date [...] 5 MG Tablet 04/08/2021 Active nystatin (MYCOSTATIN) 062541 UNIT/GM Cream 07/15/2021 Active omeprazole (PriLOSEC) 20 [...] 106 2021 10:47 AM CDT Temperature 36.2 C (97.1 F) 2021 10:47 AM CDT Respiratory Rate 20 2021 10:47 AM CDT [...] Documents on File Type Date Recorded Patient Immersion Metalcleaner Expl anation Other Advance Directive 10/04/2021 10:12 AM PRD Care Teams Die Casting Machine Maintainer Relationship Specialty Start Date End Date Josue Jordan PAC [address] [place] [id number] PCP - General Physician Operations Representative 07/05/21 Noris Robbins III, MD [address] [place] [address] Consulting Physician Urology 12/27/21
--- OUTSIDE RECORDS SUMMARY | 2024-07-16 07:31 | XMS_ITS | Clinical Summary ---
Author Organization [facility] Address [address] [place] [address] Care Team Providers Care General Office Worker Name Role Phone Josue Jordan Primary Care Provider [phone] Jalen Gibbs MD Unavailable [phone] Allergies Active Allergy Reactions Criticality Noted Date [...] 05/12/2021 Assessment & Plan (05/12/2021 4:41 PM AUTOMOBILE RADIO REPAIRER): This is likely secondary to her previous neck surgery. Overall this has to be addressed with diet modifications and maintaining soft diet. No specific GI intervention will be of great help. Chronic nausea 12/16/2020 Gastroesophageal reflux disease 12/16/2020 Assessment & Plan (05/12/2021 4:41 PM AUTOMOBILE RADIO REPAIRER): Symptoms are much better at this time. Discussed with the patient use Protonix every other day. BMI 36.0-36.9,adult 12/16/2020 Anxiety 10/11/2018 Essential hypertension 10/11/2018 Insomnia 10/11/2018 Resolved Problems Problem Noted Date Diagnosed Date Resolved Date Esophageal dysphagia 12/16/2020 021 Immunizations Immunization Administration Dates Next Due Influenza, Quadrivalent, Split, [...] on file Legal Sex Female 7:14 AM AUTOMOBILE RADIO REPAIRER Gender Identity Female 11/29/2019 6:03 PM CDT Sexual Orientation Not on file Obstetrics History Last Filed Vital Signs Vital Sign Reading Time Taken Comments Blood Pressure 141/89 11/24/2022 1:57 PM CDT Pulse 79 10/19/2022 3:10 PM CDT Temperature 36.9 C (98.5 F) 04/07/2021 3:01 PM AUTOMOBILE RADIO REPAIRER Respiratory Rate 18 04/29/2021 11:32 AM AUTOMOBILE RADIO REPAIRER Oxygen Saturation 93% 10/19/2022 3:10 PM CDT [...] B Screening 1976 Lung Cancer Screening 2008 Pneumococcal vaccine 65+ (1 of 1 - PCV) 2008 Zoster Vaccine (1 of 2) 2008 Fall Risk Assessment 04/07/2022 04/07/2021 Well Visit 65+ 12/28/2023 Covid-19 Vaccine (3 - 2023-2 5 season) 2024 10/13/2020, 09/15/2020 Influenza Vaccine (#1) 2024 , 02/05/2020, 02/04/2020, Additional history exists Medical Devices Implanted Type Area Compensator Worker Device Identifier Shelf Expiration Date Model / Serial / Lot Abyrx Os-201 Hemasorb Os-Spa Spatula Wax 2gm Bone Sterile - [id number] Implanted:Qty: 1 on 07/21/2020 by Jalen Gibbs MD at N/A: Spine Cervical Abyrx 02/18/2021 OS-201 / / [id number] [employer] 700-025 I Factor Allograft Putty Syringe Graft 2.5cc Bone - [id number] Implanted:Qty: 1 on 07/21/2020 by Jalen Gibbs MD at N/A: Spine Cervical [employer] [id number] 03/21/2023 700-025 / / [id number] [place] Spine Cerv 0 Deg W/Hole 7mm Implanted:Qty: 1 on 07/21/2020 by Jalen Gibbs MD at N/A: Spine Cervical [place] Spine [id number] 06/26/2024 / [id number] / Description:ID: [id number] Code: [id number] K2m [facility] [id number] Od4 Mm L12 Mm Self Tapping Spine Screw Bone Dark Blue - [id number] Implanted:Qty: 4 on 07/21/2020 by Jalen Gibbs MD at N/A: Spine Cervical [place] Spine [id number] C / / [place] Spine [id number] 22mm 1 Level Constrain Spine Cervical Plate Bone - [id number] Implanted:Qty: 1 on 07/21/2020 by Jalen Gibbs MD at N/A: Spine Cervical [place] Spine [id number] / / Insurance [place] ID[place] Advance Directives For more information, please contact: [phone] * Full Code (Latest Code Status on File) Date Activated Date Inactivated Comments 04/07/2021 1:26 PM 04/07/2021 9:05 PM * Full Code Date Activated Date Inactivated Comments 04/07/2021 1:26 PM 04/07/2021 1:26 PM Care Teams General Office Worker Relationship Specialty Start Date End Date Josue Jordan PA [address] [place] [address] PCP - General 01/25/19 Jalen Gibbs MD [address] [facility] [address] [place] [address] Consulting Physician Neurosurgery 07/21/20
--- OUTSIDE RECORDS SUMMARY | 2024-07-16 07:31 | XMS_ITS | Referral Summary ---
Author Organization [facility] Address [address] [place] [address] Care Team Providers Care Lightning Rod Installer Name Role Phone Josue Jordan Primary Care Provider [phone] Jalen Gibbs MD Unavailable Allergies Active Allergy Reactions Criticality Noted Date [...] 05/12/2021 Assessment & Plan (05/12/2021 4:41 PM AIR TRANSPORTATION PROVIDER): This is likely secondary to her previous neck surgery. Overall this has to be addressed with diet modifications and maintaining soft diet. No specific GI intervention will be of great help. Chronic nausea 12/16/2020 Gastroesophageal reflux disease 12/16/2020 Assessment & Plan (05/12/2021 4:41 PM AIR TRANSPORTATION PROVIDER): Symptoms are much better at this time. [...] on file Legal Sex Female 7:14 AM AIR TRANSPORTATION PROVIDER Gender Identity Female 11/29/2019 6:03 PM CDT Sexual Orientation Not on file Last Filed Vital Signs Vital Sign Reading Time Taken Comments Blood Pressure 141/89 11/24/2022 1:57 PM CDT Pulse 79 10/19/2022 3:10 PM CDT Temperature 36.9 C (98.5 F) 04/07/2021 3:01 PM AIR TRANSPORTATION PROVIDER Respiratory Rate 18 04/29/2021 11:32 AM AIR TRANSPORTATION PROVIDER Oxygen Saturation 93% 10/19/2022 3:10 PM CDT Inhaled Oxygen Concentration - - Weight 103.4 kg (228 lb) 10/19/2022 3:10 PM CDT Height 167.6 cm (5' 6 ) 10/19/2022 3:10 PM CDT Body Mass Index 36.8 10/19/2022 3:10 PM CDT Plan of Treatment Not on file Medical Devices Implanted Type Area Bale Tie Machine Operator Device Identifier Shelf Expiration Date Model / Serial / Lot Abyrx Os-201 Hemasorb Os-Spa [place] Wax 2gm Bone Sterile - [id number] Implanted:Qty: 1 on 07/21/2020 by Jalen Gibbs MD at [facility] N/A: Spine Cervical Abyrx 02/18/2021 OS-201 / / [id number] [employer] 700-025 I Factor Allograft Putty Syringe Graft 2.5cc Bone - [id number] Implanted:Qty: 1 on 07/21/2020 by Jalen Gibbs MD at [facility] N/A: Spine Cervical [employer] [id number] 03/21/2023 700-025 / / [id number] [place] Spine Cerv 0 Deg W/Hole 7mm Implanted:Qty: 1 on 07/21/2020 by Jalen Gibbs MD at [facility] N/A: Spine Cervical [place]ore Spine [id number] 06/26/2024 / [id number] / Description:ID: [id number] Code: [id number] [facility] [id number] Od4 Mm L12 Mm Self Tapping Spine Screw Bone Dark Blue - [id number] Implanted:Qty: 4 on 07/21/2020 by Jalen Gibbs MD at [facility] N/A: Spine Cervical [employer] Spine [id number] C / / [place] Spine [id number] 22mm 1 Level Constrain Spine Cervical Plate Bone - [id number] Implanted:Qty: 1 on 07/21/2020 by Jalen Gibbs MD at [facility] N/A: Spine Cervical [place] Spine [id number] / / Insurance [facility] IDPA Advance Directives For more information, please contact: [phone] * Full Code (Latest Code Status on File) Date Activated Date Inactivated Comments 04/07/2021 1:26 PM 04/07/2021 9:05 PM * Full Code Date Activated Date Inactivated Comments 04/07/2021 1:26 PM 04/07/2021 1:26 PM Care Teams Lightning Rod Installer Relationship Specialty Start Date End Date Josue Jordan PA [address] [place] [address] PCP - General 01/25/19 Jalen Gibbs MD [address] [facility] [address] [place] [address] Consulting Physician Neurosurgery 07/21/20
--- OUTSIDE RECORDS SUMMARY | 2024-07-16 07:31 | XMS_ITS | Continuity of Care Document ---
Author Organization [facility] Address [address] [place] [address] Care Team Providers Care Heel Layer Name Role Phone Unavailable Unavailable Unavailable Allergies, [...] route every day 5 MG - Active [place] 10 mg-325 mg tablet take 1 tablet [...] Diagnoses Date Provider Providers Copied on Encounter [facility], [address], [place], [id number], [facility] [place] [facility] No Information 1-201 5 No Information OFFICE/OUTPA TIENT VISIT, NEW [facility], [address], [id number], [facility] [place] [facility] low back pain (chief complaint) Myalgia and myositis, unspecifiedLumb osacral spondylosis without myelopathyBursi tis 8-201 4 No Information Referring Provider: Dipti Cobos, [address] , , [address] . tel:[phone] OFFICE[facility]PA TI[facility] VISIT, [facility] [address], [place], [id number], [facility] No Information [address] [place], [id number], [place]. tel:[phone] Referring Provider: Sheridan Bañuelos, [address] [place], [place] [address] [facility] [place], [address]. tel:[phone] Family History Family Member Type Diagnosis Age At Onset Problem (finding) Family history of hyper tension Problem (finding) Family history of Diabe catia mellitus Problem (finding) Family history of heart problems Payers Payer name Insurance type Covered libertarian ID Authoriza tion(s) Medicare Part B [id number] Social History Type Description Quantity Date Captured [...]
--- OUTSIDE RECORDS SUMMARY | 2024-07-16 07:32 | XMS_ITS | Data Portability ---
Author Organization [facility] Address [address] [place] [address] Care Team Providers Care Population Health Coach Name Role Phone GILBERT JORDAN Primary Care Provider Assessment No assessment recorded. Plan of Treatment Reminders Order Date Submit Date Provider Last Modified By Organization Details Last Modified Time Details Appointments ANY 15 2024 04:00P M Gilbert Jordan PA-C Not available Not available Not available Lab drug screen, urine 2023 024 [facility] In-Office Order, Internal Use Only DO Not Attach Compendium DO Not Attach Compendium, Do Not Delete/merge, [id number] 04/25/2024 17:17:36 urinalysi s, complete 2023 024 [facility], [address] [place] [address] [address], [address], 10/26/2023 07:14:18 Referral podiatris t referral 2023 024 [facility], [address] [facility] [address], [address], 02/28/2024 10:21:20 Procedures None recorded. Surgeries None recorded. Imaging MAMMO, screening , digital, bilateral 2024 025 [facility], [address] [place], [address], 07/09/2024 16:45:04 XR, foot, [address] [facility] (Registration ), [address] [place], [address], 01/30/2024 22:12:05 XR, kidney + ureter + bladder [address] [facility] (Registration ), [address] [place], [address], 12/20/2023 13:51:16 Medication Orders meclizine 25 mg tablet 2024 025 [facility] [address], [address], [place], [address], 07/09/2024 16:10:24 triamcino lone acetonide 0.5 % topical ointment 2024 025 [facility] [address], [address], [place], [address], 07/09/2024 16:45:04 Patient TargetsNo targets recorded. 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 Referral for Bila teral foot congenital pes cavus Referring Physician: Gilbert Jordan, Family Medicine, Encounter Date: 10/24/2023 Results Created Date Observation Date Name Description Value Unit Range Abnormal Flag Note LastModifiedBy Organization Detail LastModifiedTime 10/09/19 24 10/13/2023 URINE CULTU RE, ROUTI NE urine culture, routine FINAL REPORT abnormal Not Available [facility] ([facility]) [address] [place], [address], 10/14/2023 06:15:48 10/09/19 24 10/13/2023 URINE CULTU RE, ROUTI NE result 1 COMMEN T abnormal Pseud omona s aerug inosa 50,00 0-100 ,000 colon y formi ng units per mL Not Available [facility] ([facility]) [address] [facility], [place], [address], 10/14/2023 06:15:48 10/09/19 24 10/13/2023 URINE CULTU RE, ROUTI NE antimicrobia l susceptibili ty COMMEN T S = Susce ptibl e; I = Inter media te; R = Resis tant P = Posit vidal; N = Negat vidal MICS are expre ssed in micro grams per mL Antib iotic RSLT# 1 RSLT# 2 RSLT# 3 RSLT# 4 Amika jacey S Cefep gunner S Cefta zidim e S Cipro floxa jacey S Genta micin S Imipe nem S Levof loxac in S Merop enem S Piper acill in S Ticar cilli n S Tobra mycin S Not Available [facility] ([facility]) [address] [facility], [place], [address], 10/14/2023 06:15:48 10/09/19 24 10/09/2023 urina lysis , dipst ick Leukocytes Modera te Not Available In-Office Order Internal Use Only DO Not Attach Compendium DO Not Attach Compendium, Do Not Delete/merge, [id number] 10/09/2023 16:56:49 10/09/19 24 10/09/2023 urina lysis , dipst ick Nitrite negati ve Not Available In-Office Order Internal Use Only DO Not Attach Compendium DO Not Attach Compendium, Do Not Delete/merge, [id number] 10/09/2023 16:56:49 10/09/19 24 10/09/2023 urina lysis , dipst ick Urobilinogen .2 Not Available In-Of fice Order Internal Use Only DO Not Attach Compendium DO Not Attach Compendium, Do Not Delete/merge, 10/09/2023 16:56:49 10/09/19 24 10/09/2023 urina lysis , dipst ick Protein Negati ve Not Available In-Office Order Internal Use Only DO Not Attach Compendium DO Not Attach Compendium, Do Not Delete/merge, 10/09/2023 16:56:49 10/09/19 24 10/09/2023 urina lysis , dipst ick pH 6.0 Not Available In-Office Order Internal Use Only DO Not Attach Compendium DO Not Attach Compendium, Do Not Delete/merge, 10/09/2023 16:56:49 10/09/19 24 10/09/2023 urina lysis , dipst ick Blood Negati ve Not Available In-Office Order Internal Use Only DO Not Attach Compendium DO Not Attach Compendium, Do Not Delete/merge, 10/09/2023 16:56:49 10/09/19 24 10/09/2023 urina lysis , dipst ick Specific [place] 1.010 Not Available In-Off ice Order Internal Use Only DO Not Attach Compendium DO Not Attach Compendium, Do Not Delete/merge, 10/09/2023 16:56:49 10/09/19 24 10/09/2023 urina lysis , dipst ick Ketone Negati ve Not Available In-Office Order Internal Use Only DO Not Attach Compendium DO Not Attach Compendium, Do Not Delete/merge, 10/09/2023 16:56:49 10/09/19 24 10/09/2023 urina lysis , dipst ick Bilirubin Negati ve Not Available In-Office Order Internal Use Only DO Not Attach Compendium DO Not Attach Compendium, Do Not Delete/merge, 10/09/2023 16:56:49 10/09/19 24 10/09/2023 urina lysis , dipst ick Glucose Negati ve Not Available In-Office Order Internal Use Only DO Not Attach Compendium DO Not Attach Compendium, Do Not Delete/merge, [id number] 10/09/2023 16:56:49 10/09/19 24 10/09/2023 urina lysis , dipst ick Appearance Clear Not Available In-Offi ce Order Internal Use Only DO Not Attach Compendium DO Not Attach Compendium, Do Not Delete/merge, [id number] 10/09/2023 16:56:49 10/09/19 24 10/09/2023 urina lysis , dipst ick Color Pale Yellow Not Available In-Office Order Internal Use Only DO Not Attach Compendium DO Not Attach Compendium, Do Not Delete/merge, [id number] 10/09/2023 16:56:49 10/24/19 24 10/26/2023 MICRO SCOPI C EXAMI NATIO N WBC 0-5 /hpf 0-5 Not Available [facility] ([facility]) [address] [facility], [place], [address], 10/26/2023 07:14:17 10/24/19 24 10/26/2023 MICRO SCOPI C EXAMI NATIO N RBC None seen /hpf 0-2 Not Available [facility] ([facility]) [address] [facility], [place], [address], 10/26/2023 07:14:17 10/24/19 24 10/26/2023 MICRO SCOPI C EXAMI NATIO N epithelial cells (non renal) 0-10 /hpf 0-10 Not Available [facility] ([facility]) [address] [facility], [place], [address], 10/26/2023 07:14:17 10/24/19 24 10/26/2023 MICRO SCOPI C EXAMI NATIO N casts None seen /lpf nonese en Not Available [facility] ([facility]) [address] [facility], [place], [address], 10/26/2023 07:14:17 10/24/19 24 10/26/2023 MICRO SCOPI C EXAMI NATIO N bacteria Few nonese en/few Not Available [facility] ([facility]) [address] [facility], [place], [address], 10/26/2023 07:14:17 10/24/19 24 10/26/2023 URINA LYSIS , COMPL ETE specific gravity 1.009 1.005- 1.030 Not Available [facility] ([facility]) [address] [facility], [place], [address], 10/26/2023 07:14:18 10/24/19 24 10/26/2023 URINA LYSIS , COMPL ETE pH 6.0 5.0-7. 5 Not Available [facility] ([facility]) [address] [facility], [place], [address], 10/26/2023 07:14:18 10/24/19 24 10/26/2023 URINA LYSIS , COMPL ETE urine-color YELLOW yellow Not Available [facility] ([facility]) [address] [facility], [place], [address], 10/26/2023 07:14:18 10/24/19 24 10/26/2023 URINA LYSIS , COMPL ETE appearance CLEAR clear Not Available [facility] ([facility]) [address] [facility], [place], [address], 10/26/2023 07:14:18 10/24/19 24 10/26/2023 URINA LYSIS , COMPL ETE WBC esterase NEGATI VE negati ve Not Available [facility] ([facility]) [address] [facility], [place], [address], 10/26/2023 07:14:18 10/24/19 24 10/26/2023 URINA LYSIS , COMPL ETE protein NEGATI VE negati ve/tra ce Not Available [facility] ([facility]) [address] [facility], [place], [address], 10/26/2023 07:14:18 10/24/19 24 10/26/2023 URINA LYSIS , COMPL ETE glucose NEGATI VE negati ve Not Available [facility] ([facility]) [address] [place], [address], 10/26/2023 07:14:18 10/24/19 24 10/26/2023 URINA LYSIS , COMPL ETE ketones NEGATI VE negati ve Not Available [facility] ([facility]) [address] [place], [address], 10/26/2023 07:14:18 10/24/19 24 10/26/2023 URINA LYSIS , COMPL ETE occult blood NEGATI VE negati ve Not Available [facility] ([facility]) [address] [place], [address], 10/26/2023 07:14:18 10/24/19 24 10/26/2023 URINA LYSIS , COMPL ETE bilirubin NEGATI VE negati ve Not Available [facility] ([facility]) [address] [place], [address], 10/26/2023 07:14:18 10/24/19 24 10/26/2023 URINA LYSIS , COMPL ETE urobilinogen ,semi-qn 0.2 mg/dL 0.2-1. 0 Not Available [facility] ([facility]) [address] [place], [address], 10/26/2023 07:14:18 10/24/19 24 10/26/2023 URINA LYSIS , COMPL ETE nitrite, urine NEGATI VE negati ve Not Available [facility] ([facility]) [address] [place], [address], 10/26/2023 07:14:18 10/24/19 24 10/26/2023 URINA LYSIS , COMPL ETE microscopic examination COMMEN T Micro scopi c follo ws if indic ated. Not Available [facility] ([facility]) [address] [place], [address], 10/26/2023 07:14:18 10/24/19 24 10/26/2023 URINA LYSIS , COMPL ETE microscopic examination SEE BELOW: Micro pam c was indic ated and was perfo rmed. Not Available [facility] ([facility]) [address] [facility], [place], [address], 10/26/2023 07:14:18 10/24/19 24 10/24/2023 urina lysis , dipst ick Leukocytes Trace Not Available In-Offi ce Order Internal Use Only DO Not Attach Compendium DO Not Attach Compendium, Do Not Delete/merge, 10/24/2023 18:58:59 10/24/19 24 10/24/2023 urina lysis , dipst ick Urobilinogen .2 Not Available In-Of fice Order Internal Use Only DO Not Attach Compendium DO Not Attach Compendium, Do Not Delete/merge, 10/24/2023 18:58:59 10/24/19 24 10/24/2023 urina lysis , dipst ick Nitrite negati ve Not Available In-Office Order Internal Use Only DO Not Attach Compendium DO Not Attach Compendium, Do Not Delete/merge, 10/24/2023 18:58:59 10/24/19 24 10/24/2023 urina lysis , dipst ick Protein Negati ve Not Available In-Office Order Internal Use Only DO Not Attach Compendium DO Not Attach Compendium, Do Not Delete/merge, 10/24/2023 18:58:59 10/24/19 24 10/24/2023 urina lysis , dipst ick pH 6.0 Not Available In-Office Order Internal Use Only DO Not Attach Compendium DO Not Attach Compendium, Do Not Delete/merge, 10/24/2023 18:58:59 10/24/19 24 10/24/2023 urina lysis , dipst ick Blood Negati ve Not Available In-Office Order Internal Use Only DO Not Attach Compendium DO Not Attach Compendium, Do Not Delete/merge, 10/24/2023 18:58:59 10/24/19 24 10/24/2023 urina lysis , dipst ick Specific [place] 1.010 Not Available In-Off ice Order Internal Use Only DO Not Attach Compendium DO Not Attach Compendium, Do Not Delete/merge, 10/24/2023 18:58:59 10/24/19 24 10/24/2023 urina lysis , dipst ick Ketone Negati ve Not Available In-Office Order Internal Use Only DO Not Attach Compendium DO Not Attach Compendium, Do Not Delete/merge, 10/24/2023 18:58:59 10/24/19 24 10/24/2023 urina lysis , dipst ick Bilirubin Negati ve Not Available In-Office Order Internal Use Only DO Not Attach Compendium DO Not Attach Compendium, Do Not Delete/merge, 10/24/2023 18:58:59 10/24/19 24 10/24/2023 urina lysis , dipst ick Glucose Negati ve Not Available In-Office Order Internal Use Only DO Not Attach Compendium DO Not Attach Compendium, Do Not Delete/merge, 10/24/2023 18:58:59 10/24/19 24 10/24/2023 urina lysis , dipst ick Appearance Cloudy Not Available In-Offi ce Order Internal Use Only DO Not Attach Compendium DO Not Attach Compendium, Do Not Delete/merge, 10/24/2023 18:58:59 10/24/19 24 10/24/2023 urina lysis , dipst ick Color Yellow Not Available In-Office Order Internal Use Only DO Not Attach Compendium DO Not Attach Compendium, Do Not Delete/merge, 10/24/2023 18:58:59 04/25/20 24 04/25/2024 drug scree n, urine Methamphetam ine Negati ve Not Available In-Office Order Internal Use Only DO Not Attach Compendium DO Not Attach Compendium, Do Not Delete/merge, 04/23/2024 16:43:30 04/25/20 24 04/25/2024 drug scree n, urine THC Positi ve Not Available In-Office Order Internal Use Only DO Not Attach Compendium DO Not Attach Compendium, Do Not Delete/merge, [id number] 04/23/2024 16:43:30 04/25/20 24 04/25/2024 drug scree n, urine Benzodiazepi ne (Bzo) Negati ve Not Available In-Office Order Internal Use Only DO Not Attach Compendium DO Not Attach Compendium, Do Not Delete/merge, [id number] 04/23/2024 16:43:30 04/25/20 24 04/25/2024 drug scree n, urine Cocaine (Cliff) Negati ve Not Available In-Office Order Internal Use Only DO Not Attach Compendium DO Not Attach Compendium, Do Not Delete/merge, [id number] 04/23/2024 16:43:30 04/25/20 24 04/25/2024 drug scree n, urine Methadone (Mtd) Negati ve Not Available In-Office Order Internal Use Only DO Not Attach Compendium DO Not Attach Compendium, Do Not Delete/merge, [id number] 04/23/2024 16:43:30 04/25/20 24 04/25/2024 drug scree n, urine Buprenorphin e (Bup) Negati ve Not Available In-Office Order Internal Use Only DO Not Attach Compendium DO Not Attach Compendium, Do Not Delete/merge, [id number] 04/23/2024 16:43:30 04/25/20 24 04/25/2024 drug scree n, urine Oxycodone (Oxy) Negati ve Not Available In-Office Order Internal Use Only DO Not Attach Compendium DO Not Attach Compendium, Do Not Delete/merge, [id number] 04/23/2024 16:43:30 04/25/20 24 04/25/2024 drug scree n, urine Barbiturates (Bar) Negati ve Not Available In-Office Order Internal Use Only DO Not Attach Compendium DO Not Attach Compendium, Do Not Delete/merge, [id number] 04/23/2024 16:43:30 04/25/20 24 04/25/2024 drug scree n, urine MDMA (Ecstacy) Negati ve Not Available In-Office Order Internal Use Only DO Not Attach Compendium DO Not Attach Compendium, Do Not Delete/merge, [id number] 04/23/2024 16:43:30 04/25/20 24 04/25/2024 drug scree n, urine Amphetamines (Amp) Negati ve Not Available In-Office Order Internal Use Only DO Not Attach Compendium DO Not Attach Compendium, Do Not Delete/merge, [id number] 04/23/2024 16:43:30 04/25/20 24 04/25/2024 drug scree n, urine Opiates (opi) Positi ve Not Available In-Office Order Internal Use Only DO Not Attach Compendium DO Not Attach Compendium, Do Not Delete/merge, [id number] 04/23/2024 16:43:30 04/25/20 24 04/25/2024 drug scree n, urine Phencyclidin e (Pcp) Negati ve Not Available In-Office Order Internal Use Only DO Not Attach Compendium DO Not Attach Compendium, Do Not Delete/merge, [id number] 04/23/2024 16:43:30 04/25/20 24 04/25/2024 drug scree n, urine Tricyclic Antidepressa nts Invali d Not Available In-Office Order Internal Use Only DO Not Attach Compendium DO Not Attach Compendium, Do Not Delete/merge, [id number] 04/23/2024 16:43:30 04/25/20 24 04/25/2024 drug scree n, urine Fentanyl Negati ve Not Available In-Office Order Internal Use Only DO Not Attach Compendium DO Not Attach Compendium, Do Not Delete/merge, [id number] 04/23/2024 16:43:30 12/20/19 24 12/20/2023 XR, kidne y + urete r + bladd er No observ ation record ed. [facility] [address] [place], [address], 12/20/2023 14:27:58 01/30/20 24 01/30/2024 XR, foot, 2 view No observ ation record ed. [facility] [address] [place], [address], 01/31/2024 16:36:35 06/21/19 25 06/21/2024 CT, head, w/o contr ast [facility] [address] [place], [address], 06/21/2024 14:22:54 06/21/19 25 06/21/2024 XR, chest [facility] [address] [place], [address], 06/21/2024 14:23:05 Result Notes None recorded. Problems Name Problem SNOMED Code Status Onset Date Resolution Date Notes Provider Name and Address Organization Details Recorded Time Insomnia 514020702 Active 2018 YURY [place], [place] - [facility] 11:44:14 Anxiety 16399946 Active 2018 YURY [place], [place] [facility] 11:44:14 Hypertensive disorder 61523612 Active 2018 YURY [place], [place] - [facility] 11:44:14 Problem Notes None recorded. Procedures Surgical History Date Name Laterality Status Provider Name and Address Organization Details Recorded Time 05/25/19 24 Date of Last Mammogram completed Alise Seth MA [place] - [facility] 07/09/2024 15:56:12 06/22/19 22 Date of Last Pap Smear completed YURY [place] - [facility] 10/01/2021 16:31:44 05/22/19 14 colonoscopy completed Alise Seth MA [place] - [facility] 09/09/2020 11:52:04 03/09/19 99 Total hysterectomy completed Emilia Nichole MA [place] - [facility] 06/09/2020 10:31:41 Back Surgery completed YURY Ken[place] - [place] 11/29/2017 16:21:35 operation on hip joint completed YURY Hyde - [facility] 09/09/2020 11:51:26 Carpal tunnel surgery completed YURY Hyed - [facility] 09/09/2020 11:51:39 Imaging Results Imaging Date Name Status LastModified by Organiz ation Details LastModified Time 12/20/2023 XR, kidney + ureter + bladder completed [facility] [address] [place], [address], 12/20/2023 14:27:58 01/30/2024 XR, foot, 2 view completed [facility] [address] [place], [address], 01/31/2024 16:36:35 06/21/2024 CT, head, w/o contrast completed [facility] [address] [place], [address], 06/21/2024 14:22:54 06/21/2024 XR, chest completed [facility] [address] [place], [address], 06/21/2024 14:23:05 Procedure Notes None recorded. Medical Equipment None Reported. Allergies Allergen ID Allergen Name Allergen Category Reaction Reaction Severity Criticality Documentation Date Start Date Code Code System Note Provider Name and Address Organization Details Recorded Time 316292 tetracycl ine medicatio n rash Not available Not available 11/29/2017 80904 RxNorm Not Available Not Available Not Available Medications Name Sig Start Date Stop Date Status Note LastModified by Organization Details LastModified Time cyclobenz aprine hydrochlo ride 10 mg tabs 02/09 completed Not Available Not Available Not Available cyclobenz aprine 10 mg tablet TAKE ONE TABLET BY MOUTH 3 TIMES A DAY NEEDED active Not Available Not Available No t Available amoxicill in 500 mg capsule Take 1 capsule 3 times a day by oral route for 10 days. 01/29 completed Not Available Not Available Not Available buspirone 5 mg tablet TAKE ONE TABLET BY MOUTH 2 TIMES A DAY 02/23 completed Not Available Not Available Not Available bupropion HCl SR 150 mg tablet,12 hr sustained -release 11/29 completed Not Available Not Available Not Available clonidine HCl 0.1 mg tablet 11/29 completed Not Available Not Available Not Available acetamino phen 325 mg tablet 10/01 completed Not Available Not Available Not Available gabapenti n 600 mg tablet TAKE ONE TABLET BY MOUTH 3 TIMES A DAY active Not Available Not Available No t Available tizanidin e 2 mg tablet 11/29 completed Not Available Not Available Not Available oxybutyni n chloride ER 10 mg tablet,ex tended release 24 hr TAKE 1 TABLET BY MOUTH EVERY DAY active Not Available Not Available No t Available tizanidin e 4 mg tablet 06/16 completed Not Available Not Available Not Available hydrocodo ne 5 mg-acetam inophen 325 mg tablet 11/30 completed Not Available Not Available Not Available ondansetr on HCl 8 mg tablet TAKE ONE TABLET BY MOUTH TWICE A DAY FOR 5 DAYS 2023 active Not Available Not Available Not Avai lable fluconazo le 200 mg tablet Take 1 tablet every 72 hours by oral route. 02/09 completed Not Available Not Available Not Available lisinopri l 20 mg tablet Take 1 tablet every day by oral route for 90 days. 07/18 completed Not Available Not Available Not Available clonazepa m 0.5 mg tablet TAKE 1 TABLET 3 TIMES A DAY BY ORAL ROUTE NEEDED FOR 30 DAYS. active Not Available Not Available No t Available clonazepa m 1 mg tablet 11/29 completed Not Available Not Available Not Available hydroxyzi ne pamoate 50 mg capsule 11/29 completed Not Available Not Available Not Available triamcino lone acetonide 0.5 % topical ointment APPLY A THIN LAYER TO THE AFFECTED AREA(S) BY TOPICAL ROUTE 2 TIMES PER DAY 2024 active Not Available Not Available Not Avai lable acetamino phen 300 mg-codein e 30 mg tablet 09/09 completed Not Available Not Available Not Available amlodipin e 5 mg tablet TAKE ONE TABLET BY MOUTH DAILY 2024 active Not Available Not Available Not Avai lable sulfameth oxazole 800 mg-trimet hoprim 160 mg tablet Take 1 tablet every 12 hours by oral route for 3 days. 06/16 completed Not Available Not Available Not Available hydrocodo ne 10 mg-acetam inophen 325 mg tablet 11/29 completed Not Available Not Available Not Available Depo-Medr ol 80 mg/mL suspensio n for injection Take 1 mL by injectio n route. 06/20 completed Not Available Not Available Not Available oxycodone -acetamin ophen 5 mg-325 mg tablet 09/09 completed Not Available Not Available Not Available prednisol one acetate 1 % eye drops,regulo pension INSTILL 1 DROP INTO SURGICAL EYE 3X DAILY - START AFTER SURGERY, CONTINUE FOR 3 WEEKS 09/26 completed Not Available Not Available Not Available metoclopr amide 5 mg tablet 10/01 completed Not Available Not Available Not Available gabapenti n 800 mg tablet Take 1 tablet 3 times a day by oral route for 30 days. 02/09 completed Not Available Not Available Not Available trazodone 100 mg tablet TAKE TWO TABLETS BY MOUTH AT BEDTIME 04/27 completed Not Available Not Available Not Available ciproflox acin 0.3 % eye drops INSTILL 1 DROP IN SURGICAL EYE 3X DAILY - BEGIN 2 DAYS PRIOR TO SURGERY, CONTINUI NG FOR 1 WEEK AFTER 09/26 completed Not Available Not Available Not Available meclizine 25 mg tablet Take 1 tablet 3 times a day by oral route as directed for 30 days. 2024 active Not Available Not Available Not Avai lable baclofen 10 mg tablet TAKE 1 TABLET 2 TIMES DAILY NEEDED FOR 30 DAYS 02/08 completed Not Available Not Available Not Available hydrocodo ne 7.5 mg-acetam inophen 325 mg tablet 10/01 completed Not Available Not Available Not Available cephalexi n 500 mg capsule Take 1 capsule 3 times a day by oral route for 10 days. 07/09 completed Not Available Not Available Not Available pantopraz ole 40 mg tablet,de layed release active Not Available Not Available Not Available diclofena c 0.1 % eye drops INSTILL 1 DROP IN SURGICAL EYE 3X DAILY -BEGIN 2 DAYS PRIOR TO SURGERY, CONTINUI NG 2 WEEKS AFTER 09/26 completed Not Available Not Available Not Available nitrofura ntoin macrocrys dylan 100 mg capsule 09/26 completed Not Available Not Available Not Available nystatin 100,000 unit/gram topical cream APPLY TO AFFECTED AREA TWICE A DAY 04/27 completed Not Available Not Available Not Available lisinopri l 10 mg tablet Take 1 tablet every day by oral route for 30 days. 07/18 completed Not Available Not Available Not Available omeprazol e 20 mg capsule,d elayed release TAKE 1 CAPSULE BY MOUTH TWICE A DAY 2023 active Not Available Not Available Not Avai lable diclofena c sodium 75 mg tablet,de layed release TAKE 1 TABLET BY MOUTH 2 TIMES A DAY WITH FOOD. 02/09 completed Not Available Not Available Not Available Replens vaginal gel Insert 1 g by vaginal route as directed . 2023 active Not Available Not Available Not Avai lable acetamino phen 300 mg-codein e 60 mg tablet TAKE ONE TABLET BY MOUTH THREE TIMES A DAY 2024 active Not Available Not Available Not Avai lable mupirocin 2 % topical ointment 10/01 completed Not Available Not Available Not Available zolpidem 5 mg tablet TAKE ONE TABLET BY MOUTH DAILY 04/27 completed Not Available Not Available Not Available zolpidem 10 mg tablet TAKE 1 TABLET EVERY DAY BY ORAL ROUTE FOR 30 DAYS. 2024 active Not Available Not Available Not Avai lable methylpre dnisolone 4 mg tablets in a dose pack Take 1 dose pk by oral route as directed . 06/02 completed Not Available Not Available Not Available ketorolac 60 mg/2 mL intramusc ular solution Inject 2 mL by intramus cular route. 11/30 completed Not Available Not Available Not Available atenolol 50 mg tablet TAKE ONE TABLET BY MOUTH DAILY active Not Available Not Available No t Available metoclopr amide 10 mg tablet 11/29 completed Not Available Not Available Not Available hydroxyzi ne pamoate 25 mg capsule take 1 3 times daily as needed 10/11 completed Not Available Not Available Not Available Senna-S 8.6 mg-50 mg tablet 10/01 completed Not Available Not Available Not Available escitalop francisco j 10 mg tablet Take 1 tablet every day by oral route for 30 days. 09/09 completed stopped taking Not Available Not Available Not Available aripipraz ole 15 mg tablet TAKE ONE TABLET BY MOUTH EVERY EVENING 09/22 completed Not Available Not Available Not Available bupropion HCl XL 300 mg 24 hr tablet, extended release TAKE 1 TABLET BY ORAL ROUTE DIRECTED FOR 90 DAYS. active Not Available Not Available No t Available nitrofura ntoin monohydra te/macroc rystals 100 mg capsule Take 1 capsule every 12 hours by oral route for 10 days. 01/29 completed Not Available Not Available Not Available trospium 20 mg tablet 08/02 completed Not Available Not Available Not Available duloxetin e 30 mg capsule,d elayed release 11/29 completed Not Available Not Available Not Available omega-3 acid ethyl esters 1 gram capsule TAKE ONE CAPSULE BY MOUTH 2 TIMES A DAY 02/09 completed Not Available Not Available Not Available eszopiclo ne 3 mg tablet Take 1 tablet every day by oral route at bedtime for 30 days. 01/02 completed Not Available Not Available Not Available calcium 500 mg (as carbonate )-vit D3 10 mcg (400 unit) chewable tablet Take 1 {tbl} by oral route. 10/01 completed Not Available Not Available Not Available vitamin B complex 06/16 completed Not Available Not Available Not Available Vraylar 3 mg capsule Take 1 capsule every day by oral route for 30 days. 09/26 completed Not Available Not Available Not Available Fluzone Quad (PF) 60 mcg (15 mcg x 4)/0.5 mL IM syringe 02/09 completed Not Available Not Available Not Available Paxlovid 300 mg (150 mg x 2)-100 mg tablets in a dose pack TK 2 NIRMATRE LVIR TS AND 1 RITONAVI R T TOGETHER PO BID FOR 5 DAYS 07/09 completed Not Available Not Available Not Available Vitals Date Recorded Body height Body mass index (BMI) Body weight Oxygen saturation Oxygen saturation in Arterial blood by Pulse oximetry Heart rate Respiratory rate Body temperature Systolic blood pressure Diastolic blood pressure Provider Name and Address Organization Details Last Updated DateTime 4 167.64 cm 38.8 kg/m2 998095. 32 g 96 % 96 % 78 /min 16 /min 98.2 [degF] 118 mm[Hg] 76 mm[Hg] Francisca Lott MA [place] [facility] 4 18:16:03 Date Recorded Body height Body mass index (BMI) Body weight Oxygen saturation Oxygen saturation in Arterial blood by Pulse oximetry Heart rate Systolic blood pressure Diastolic blood pressure Provider Name and Address Organization Details Last Updated DateTime 4 167.64 cm 38.4 kg/m2 375169. 98 g 96 % 96 % 73 /min 104 mm[Hg] 71 mm[Hg] Neli Mcintyre MA [facility] 4 17:39:46 Date Recorded Body height Body mass index (BMI) Body weight Oxygen saturation Oxygen saturation in Arterial blood by Pulse oximetry Heart rate Systolic blood pressure Diastolic blood pressure Provider Name and Address Organization Details Last Updated DateTime 4 167.64 cm 39.2 kg/m2 845927. 95 g 99 % 99 % 88 /min 126 mm[Hg] 81 mm[Hg] Neli Mcintyre MA [facility] 4 17:08:13 Date Recorded Body height Body mass index (BMI) Body weight Oxygen saturation Oxygen saturation in Arterial blood by Pulse oximetry Heart rate Systolic blood pressure Diastolic blood pressure Provider Name and Address Organization Details Last Updated DateTime 5 167.64 cm 37.9 kg/m2 710409. 21 g 98 % 98 % 86 /min 130 mm[Hg] 86 mm[Hg] Alise Seth MA [facility] 5 15:59:58 Social History Question Answer Notes LastModified by Organizat ion Details LastModified Time Tobacco Smoking Status Former Smoker Emilie Todd MA [facility] 11/29/2017 16:22:22 What Is Your Level Of Alcohol Consumption? Occasional Rarely Information not available 10/24/2023 Are You Blind Or Do You Have Difficulty Seeing? No Information not available 11/03/2020 What Is Your Level Of Caffeine Consumption? Moderate Information not available 04/27/2023 How Much Tobacco Do You Chew? None Information not available 02/10/2020 In The 14 Days Before Symptom Onset, Have You Had Close Contact With A Laboratory-confi rmed COVID-19 While That Case Was Ill? No Information not available 09/09/2020 In The 14 Days Before Symptom Onset, Have You Had Close Contact With A Person Who Is Under Investigation For COVID-19 While That Person Was Ill? No Information not available 09/09/2020 Have You Been To An Area Known To Be High Risk For COVID-19? No Information not available 09/09/2020 Are You Currently Employed? No Information not available 02/10/2020 Are You Deaf Or Do You Have Serious Difficulty Hearing? No Information not available 11/03/2020 What Type Of Diet Are You Following? REGULAR Information not available 10/11/2018 Which Illicit Or Recreational Drugs Have You Used? Marijuana Information not available 02/10/2020 Do You Or Have You Ever Used E-cigarettes Or Vape? Never Used Electronic Cigarettes Information not available 11/28/2019 What Is Your Occupation? Disability Information not available 02/10/2020 Are There Any Guns Present In Your Home? No Information not available 11/03/2020 Live Alone Or With Others? With Others Information not available 02/10/2020 What Was The Date Of Your Most Recent Tobacco Screening? 07/09/2024 Information not available 07/09/2024 What Is Your Relationship Status? Single Information not available 09/09/2020 Do You Use Your Seat Belt Or Car Seat Routinely? Yes Information not available 09/09/2020 Do You Have Smoke And Carbon Monoxide Detectors In Your Home? Yes Information not available 09/09/2020 Are You Passively Exposed To Smoke? Yes Information not available 09/09/2020 Do You Or Have You Ever Used Smokeless Tobacco? Never Used Smokeless Tobacco Information not available 11/28/2019 How Much Tobacco Do You Smoke? No Information not available 10/11/2018 General Stress Level Medium Information not available 06/09/2020 Do You Feel Stressed (tense, Restless, Nervous, Or Anxious, Or Unable To Sleep At Night)? [id number] Information not available 04/27/2023 Do You Use Any Illicit Or Recreational Drugs? Yes Marijuana [email or web address] Information not available 05/02/2022 Has Tobacco Cessation Counseling Been Provided? No Information not available 10/11/2018 On What Date Was Tobacco Cessation Counseling Provided? 07/09/2024 Information not available 07/09/2024 How Many Years Have You Smoked Tobacco? 10 Information not available 11/29/2017 Do You Or Have You Ever Used Any Other Forms Of Tobacco Or Nicotine? No Information not available 09/09/2020 Sex: Unknown Functional Status Question Answer Note LastModified by Organizat ion Details LastModified Time Are you able to care for yourself? Yes Information not available 02/10/2020 What is your exercise level? None Trying to walk Information not available 10/24/2023 Mental Status None recorded. Family History Relationship Description Onset Age of this Age Resolved Age Notes LastModified by Organization Details LastModified Time Father Alcoholism Not avai lable 11/29/2017 16:23:02 Father Hypertensive disorder Not available 11/19 16:24:33 Mother Alcoholism Not avai lable 11/29/2017 16:23:02 Mother Depressive disorder Not available 11/19 16:23:31 Mother Disorder of thyroid gland Not available 11/19 16:23:42 Mother Heart disease Not available 11/19 16:24:11 Mother Hypertensive disorder Not available 11/19 16:24:33 Mother Osteoporosis Not av ailable 11/29/2017 16:24:44 Mother Fibromyalgia Not av ailable 11/29/2017 16:24:59 Brother Alcoholism Not primo ilable 11/29/2017 16:23:02 Brother Attention deficit hyperactivit y disorder Not available 03/2018 16:23:11 Brother Depressive disorder Not available 11/19 16:23:31 Medical History Condition Response Coronary Artery Disease N Other N High Blood Pressure Y Atrial Fibrillation N Kidney or Bladder Problems N Thyroid Problems N GI Problems N Depression Y COPD N Blood Clots N Skin Problems N Anemia N Heart Attack (ME) N Anxiety Disorder Y Diabetes N Muscle, Joint, or Bone Problems N Seizures/Epilepsy N Acid Reflux (GERD) Y Cancer N Stroke N Asthma N Allergies N High Cholesterol N Hepatitis N Liver Disease N Headaches N Heart Failure N Osteoporosis N Gynecological History Statement/Question Response Date of Last Pap Smear 06/22/2021 Date of Last Mammogram 05/25/2023 Obstetrics History GPAL:G 0 P 0 0 0 0 Immunizations Vaccine Type Date Status Note Provider Nam e and Address Organization Details Recorded Time Influenza, split virus, quadrivalent, preservative 9 completed YURY Hyde, [place] - [facility] 10/01/2019 15:08:56 Influenza, split virus, quadrivalent, preservative 0 completed Alise Seth [place], [place] [facility] 09/09/2020 11:44:15 Influenza, split virus, quadrivalent, PF 0 completed Alise [place] [facility] 09/09/2020 11:44:15 Influenza, split virus, quadrivalent, preservative 8 completed YURY [place], [place] [facility] 09/09/2020 11:44:15 COVID-19, mRNA, LNP-S, PF, 100 mcg/0.5mL dose or 50 mcg/0.25mL dose 1 completed YURY [place], [place] [facility] 09/28/2020 14:46:54 COVID-19, mRNA, LNP-S, PF, 100 mcg/0.5mL dose or 50 mcg/0.25mL dose 1 completed YURY [place], [place] [facility] 06/16/2021 11:11:29 COVID-19, mRNA, LNP-S, PF, 100 mcg/0.5mL dose or 50 mcg/0.25mL dose 1 completed YURY [place], [place] [facility] 06/16/2021 11:11:36 influenza, intradermal, quadrivalent, preservative free 2 completed YURY [place] [facility] 02/04/2022 15:29:52 COVID-19, mRNA, LNP-S, bivalent, PF, 30 mcg/0.3 mL dose 3 completed YURY [place], [place] [facility] 08/16/2022 17:52:15 COVID-19, mRNA, LNP-S, PF, 50 mcg/0.5 mL 4 completed Neli Mcintyre MA null, [place] [facility] 03/25/2024 14:25:18 Influenza, high-dose, trivalent, PF 4 completed Neli Mcintyre MA null, [place] [facility] 03/25/2024 14:25:18 Past Encounters Encounter ID Performer Location Encounter Start Date Encounter Closed Date Diagnosis/Indication Diagnosis SNOMED-CT Code Diagnosis ICD10 Code Diagnosis Note [id number] Gilbert Jordan PA-C [facility] [address] [place] [address] 11/29/2017 15:44:29 11/29/2017 17:09:25 Osteoarthritis 785905525 M15.0 Lumbar radiculopathy 128 926321 M54.16 [id number] Gilbert Jordan PA-C [facility] [address] [place] [address] 12/05/2017 15:30:57 12/05/2017 16:38:06 Sensorineural hearing loss of bilateral ears 364406242 H90.3 [id number] Gilbert Jordan PA-C [facility] [address] [place] [address] 12/26/2017 16:40:32 12/26/2017 17:46:56 Degeneration of lumbar intervertebral disc 25085441 M51.36 Eruption 269163610 R21 [id number] Gilbert Jordan PA-C [facility] [address] [place] [address] 03/12/2018 11:30:10 03/12/2018 12:07:42 Administration of influenza vaccine 10743732 Z23 Generalize d anxiety disorder 10181321 F41.1 Spasm of back muscles 20 0493257 M62.551 [id number] Gilbert Jordan PA-C [facility] [address] [place] [address] 06/20/2018 10:43:25 06/20/2018 12:04:05 Pain of left hip joint 2018496021 39264 M25.552 Lumbar radiculopathy 128 580976 M54.16 Degenerati on of lumbar intervertebral disc 22904403 M51.36 Essential hypertension 21459134 I10 [id number] Gilbert Jordan PA-C [facility] [address] [place] [address] 07/04/2018 10:52:55 07/04/2018 11:47:14 Lumbar radiculopathy 851151440 M54.16 Essential hypertension 07651869 I10 [id number] Gilbert Jordan PA-C [facility] [address] [place] [address] 07/18/2018 10:45:54 07/18/2018 12:30:33 Essential hypertension 66192775 I10 [id number] Gilbert Jordan PA-C [facility] [address] [place] [address] 08/01/2018 10:43:14 08/01/2018 12:32:14 Essential hypertension 01913377 I10 Lumbar radiculopathy 128 554017 M54.16 [id number] ANASTASIA Bland [facility] [address] [place] [address] 10/11/2018 14:04:49 10/11/2018 15:39:55 Essential hypertension 19124052 I10 Simple renal cyst 639764 09 N28.1 Primary insomnia 1990498 F51.01 [id number] Gilbert Jordan PA-C [facility] [address] [place] [address] 11/20/2018 09:54:30 11/20/2018 11:26:34 Pain of left hip joint 5566150025 54329 M25.552 Pain in left knee 002571 0881 34917 M25.370 [id number] Gilbert Jordan PA-C [facility] [address] [place] [address] 11/30/2018 11:32:44 11/30/2018 12:22:12 Pain of left hip joint 6093067454 91352 M25.293 [id number] ANASTASIA Bland [facility] [address] [place] [address] 12/13/2018 11:29:07 12/13/2018 12:29:48 Arthritis of left hip 8345414107 569674 M13.585 [id number] Gilbert Jordan PA-C [facility] [address] [place] [address] 02/08/2019 11:53:39 02/11/2019 11:28:55 Anxiety 19025414 F41.1 Insomnia 678170556 G47.0 9 Arthritis of left hip 10 06724839 729726 M13.548 [id number] Gilbert Jordan PA-C [facility] [address] [place] [address] 09/23/2019 11:09:04 09/24/2019 10:39:03 Essential hypertension 66286336 I10 Generalize d anxiety disorder 80677610 F41.1 Osteoarthritis 183849268 M15.0 [id number] Gilbert Jordan PA-C [facility] [address] [place] [address] 10/01/2019 09:45:44 10/01/2019 15:30:44 Strain of right trapezius muscle 5182846635 9188970 S29.012A [id number] Gilbert Jordan PA-C [facility] [address] [place] [address] 10/31/2019 16:08:12 10/31/2019 17:06:38 Anxiety 52214403 F41.1 Cervical radiculopathy 59028378 M54.12 Localized, primary osteoarthritis 636454499 M15.0 Candidiasis of skin 4988 3006 B37.2 [id number] Gilbert Jordan PA-C [facility] [address] [place] [address] 11/28/2019 10:13:37 11/29/2019 06:28:46 Cervical radiculopathy 93977528 M54.12 Essential hypertension 51812280 I10 [id number] Gilbert Jordan PA-C [facility] [address] [place] [address] 02/10/2020 11:50:57 02/10/2020 12:40:36 Generalized anxiety disorder 28163724 F41.1 Chronic depression 70934 0009 F34.1 [id number] Gilbert Jordan PA-C [facility] [address] [place] [address] 02/18/2020 09:30:40 02/18/2020 19:32:43 [id number] Gilbert Jordan PA-C [facility] [address] [place] [address] 02/24/2020 09:43:57 02/24/2020 13:31:00 Chronic depression 620358433 F34.1 [id number] Gilbert Jordan PA-C [facility] [address] [place] [address] 06/09/2020 09:38:52 06/10/2020 09:02:56 Osteoporosis 43051298 M81.0 Screening for osteoporosis 326255414 Z13.611 [id number] Gilbert Jordan PA-C [facility] [address] [place] [address] 09/09/2020 10:58:28 09/10/2020 14:37:01 Urinary tract infectious disease 73217952 N10 Essential hypertension 86190654 I10 Primary fi bromyalgia syndrome 37656564 M79.7 [id number] Gilbert Jordan PA-C [facility] [address] [place] [address] 09/28/2020 14:41:01 10/05/2020 12:02:36 Anxiety 88150569 F41.1 Multiple joint pain 3567 8005 M25.59 Hypertensive disorder 38 266913 I10 Insomnia 125360254 G47.0 9 [id number] Gilbert Jordan PA-C [facility] [address] [place] [address] 11/03/2020 09:29:11 11/04/2020 05:51:29 Gastroesophageal reflux disease without esophagitis 320919212 K21.9 [id number] Gilbert Jordan PA-C [facility] [address] [place] [address] 11/30/2020 15:04:03 11/30/2020 16:04:31 Nausea 601177840 R11.0 Gastroesop hageal reflux disease 666166554 K21.9 Anxiety 87635855 F41.1 Hypertensive disorder 38 266845 I10 Esophageal dysphagia 408 41768 R13.19 Nausea and vomiting 1693 2000 R11.2 Essential hypertension 67936166 I10 Chronic depression 19627 0009 F34.1 [id number] Gilbert Jordan PA-C [facility] [address] [place] [address] 06/16/2021 10:45:30 06/16/2021 11:52:47 Hypertensive disorder 77058218 I10 Pain in ri ght hip joint 1491609329 82112 M25.551 Female str ess incontinence 65597729 N39.3 [id number] ANASTASIA Bland [facility] [address] [place] [address] 10/01/2021 16:24:58 10/01/2021 17:00:18 Primary fibromyalgia syndrome 61111071 M79.7 Fatigue 63495198 R53.83 [id number] Gilbert Jordan PA-C [facility] [address] [place] [address] 05/02/2022 10:51:13 05/02/2022 11:58:01 Long-term drug therapy 116545170 Z79.899 Obesity 845783616 E66.9 Degenerati ve joint disease involving multiple joints 108851157 M15.0 Lumbar radiculopathy 128 642658 M54.16 Adult [facility] th examination 877564141 Z00.00 [id number] Gilbert Jordan PA-C [facility] [address] [place] [address] 08/02/2022 17:22:12 08/03/2022 12:07:11 Edema of lower extremity 419044455 R60.0 Idiopathic peripheral neuropathy 53008610 G60.8 Overweight 005313169 E66 .3 [id number] Alise Seth MA [facility] [address] [place] [address] 08/16/2022 17:23:48 08/17/2022 12:42:32 Administration of SARS-CoV-2 mRNA vaccine 2833401872 Z23 [id number] Gilbert Jordan PA-C [facility] [address] [place] [address] 09/22/2022 11:21:17 09/23/2022 10:31:33 Varicose veins of lower extremity 65635144 I83.91 Overweight 192741409 E66 .3 [id number] Ramya Cordova MA [facility] [address] [place] [address] 01/02/2023 09:55:00 01/03/2023 11:17:41 Lumbar radiculopathy 164697749 M54.16 Osteoarthritis 394022796 M15.0 Cervical radiculopathy 24247137 M54.12 Insomnia 091726460 G47.0 9 Overweight 018330197 E66 .3 Essential hypertension 23032250 I10 [id number] Gilbert Jordan PA-C [facility] [address] [place] [address] 04/27/2023 11:22:22 05/04/2023 14:03:17 Long-term drug therapy 998944842 Z79.899 Bilateral cataracts 9572 2003 H25.011 Family his tory of coronary arteriosclerosis 033797012 Z82.49 Pre-surger y evaluation 626035759 Z01.818 Generalize d anxiety disorder 58167674 F41.1 [id number] Gilbert Jordan PA-C [facility] [address] [place] [address] 08/31/2023 15:31:07 09/07/2023 15:15:28 Mixed anxiety and depressive disorder 885036911 F41.8 [id number] Gilbert Jordan PA-C [facility] [address] [place] [address] 09/27/2023 14:47:22 10/02/2023 14:56:38 Acute urinary tract infection 062246785 N39.0 Overweight 648710801 E66 .3 [id number] Alise Seth MA [facility] [address] [place] [address] 10/09/2023 16:38:48 10/17/2023 12:49:36 Acute urinary tract infection 336140785 N39.0 [id number] Gilbert Jordan PA-C [facility] [address] [place] [address] 10/24/2023 17:54:28 10/31/2023 20:32:49 Urinary incontinence 095330314 N39.46 Bilateral foot congenital pes cavus 0142150096 0631417 Q66.71 [id number] Gilbert Jordan PA-C [facility] [address] [place] [address] 01/30/2024 17:32:05 01/31/2024 09:02:55 Pain in right foot 2880663361 03196 M79.671 Overweight 058973711 E66 .3 [id number] Neli Mcintyre MA [facility] [address] [place] [address] 03/25/2024 14:09:13 03/26/2024 11:31:06 Administration of SARS-CoV-2 mRNA vaccine 8131774192 Z23 [id number] Gilbert Jordan PA-C [facility] [address] [place] [address] 04/25/2024 16:47:37 04/30/2024 11:06:48 Long-term drug therapy 894041155 Z79.899 Lumbar radiculopathy 128 928456 M54.16 Mixed anxi ety and depressive disorder 161141855 F41.8 Overweight 193277327 E66 .3 [id number] Gilbert Jordan PA-C [facility] [address] [place] [address] 07/09/2024 15:49:15 07/15/2024 09:50:36 Candidiasis of skin 63792915 B37.2 Screening mammography 24 992258 Z12.31 Bilateral tinnitus 77067 08834 102 H93.13 Overweight 588393629 E66 .3 Gastroesop hageal reflux disease without esophagitis 646124434 K21.9 Health Concerns Section Related Observation LastModified by Organization Detai ls LastModified Time None Recorded Concern Status LastModified by Organization Details LastModified Time None Recorded Advance Directives Directive None Recorded Payers Encounter Date Sequence Insurance Name Policy Number Policy Ignacio Covered Member ID Ignacio Member ID Guarantor Name 10/24/2023 2 [place] WHEN MEDICARE OR MEDICARE REPLACEMENT PRIMARY) Janice Chavez [id number] Janice Chavez 10/24/2023 1 [employer] (MEDICARE REPLACEMENT/AD VANTAGE - PPO) Janice Chavez [id number] Janice Chavez 01/30/2024 2 [place]ARE OR MEDICARE REPLACEMENT PRIMARY) Janice Chavez [id number] Janice Chavez 01/30/2024 1 [employer] (MEDICARE REPLACEMENT/AD VANTAGE - PPO) Janice Chavez [id number] Janice Chavez 03/25/2024 1 [employer] (MEDICARE REPLACEMENT/AD VANTAGE - PPO) Janice Chavez [id number] Janice Chavez 04/25/2024 1 [employer] (MEDICARE REPLACEMENT/AD VANTAGE - PPO) Janice Chavez [id number] Janice Chavez 07/09/2024 1 [employer] (MEDICARE REPLACEMENT/AD VANTAGE - PPO) Janice Chavez [id number] Janice Chavez Notes Date Note Type Note Provider Name and Address Organization Details Recorded Time 10/24/2023 text/html chronic uti...hx of uti due to kidney shape...also has foot pain after sustained activity... Gilbert Jordan PA-C Attn: [address] [place], [address], [facility] 10/24/2023 18:44:53 01/30/2024 text/html rt foot pain on top with a large knot on top of foot...couple months...no known injury... Gilbert Jordan PA-C Attn: [address] [place], [address], [facility] 01/30/2024 17:52:14 04/25/2024 text/html 3 month vs control...trying to get some home excercize...and lose weight... Gilbert Jordan PA-C Attn: [address] [place], [address], [facility] 04/25/2024 17:18:42 07/09/2024 text/html static sound in ears began 2 weeks ago...also some neck pain (actually has been present for a long time and worsened)..also omeprazole may not be working worse for past week Gilbert Jordan PA-C Attn: [address] [place], [address], [facility] 07/09/2024 16:12:59 OBGyn Episode No OBEpisode recorded.
== END 2024-07-16 07:26 | disposition home or self-care (01) ==
LOC: CHSIMG 07:27
PROVIDERS: PCP Physician Assistant; Visit Provider Orthopaedic Surgery
DX: M25.552 Pain in left hip (principal); M25.551 Pain in right hip; Z12.31 Encounter for screening mammogram for malignant neoplasm of breast; Z96.643 Presence of artificial hip joint, bilateral
CPT/HCPCS: 73521; 77063; 77067

== ENCOUNTER 2024-09-01 08:00 | Emergency (ER) | payer MEDICARE, SELFPAY ==
[2024-09-01 08:00] VITALS: BP 144/61; PULSE 68; RESP 17; TEMP 36.4; O2SAT 98
--- NOTE | 2024-09-01 08:08 | ED_ITS ---
HPI - General Adult General Chief complaint: Unspecified Stated complaint: threw up medication Time Seen by Provider: 09/01/24 08:03 History of Present Illness HPI narrative: Rosalia is a 63M with a PMH of hyponatremia, hypokalemia, fibromyalgia, arthritis, chronic GI upset and hypertension that came in by EMS for hypertension. She threw up her meds this morning and her BP went high. She became nervous and called EMS. She denies CP, headache, dyspnea and her abdomen feels at baseline. She just was not sure whether to retake her meds or not. Related Data Home Medications ?Medication ?Instructions ?Recorded ?Confirmed ?Last Taken ?Type amlodipine 5 mg tablet 5 mg PO QAM 09/29/20 09/18/23 07/07/21 History atenolol 50 mg tablet 50 mg PO QAM 09/29/20 09/18/23 07/07/21 04:00 History bupropion HCl 300 mg 24 hr tablet, 300 mg PO QAM 09/29/20 09/18/23 07/07/21 History extended release (Wellbutrin XL) calcium 600 mg (as 1 tablet PO QAM 06/21/21 09/18/23 Unknown History carbonate)-vitamin D3 5 mcg (200 unit) tablet gabapentin 600 mg tablet 600 mg PO TID 06/21/21 09/18/23 07/05/21 History oxybutynin chloride 10 mg 10 mg PO QAM 06/21/21 09/18/23 Unknown History tablet,extended release 24 hr clonazepam 0.5 mg tablet 0.5 mg PO PRN PRN Anxiety 05/02/23 09/18/23 Unknown History omeprazole 20 mg capsule,delayed 20 mg PO DAILY 05/02/23 09/18/23 Unknown History release acetaminophen 300 mg-codeine 60 mg 1 tablet PO TID 09/18/23 09/18/23 Unknown History tablet zolpidem 10 mg tablet 10 mg PO HS 09/18/23 09/18/23 Unknown History Allergies Allergy/AdvReac Type Severity Reaction Status Date / Time tetracycline Allergy Unknown Rash Verified 09/01/24 08:07 Review of Systems Review of Systems: All systems reviewed & are unremarkable except as noted in HPI and below PMFSH Past Medical History Medical History Screening mammogram for breast cancer Cataracts, bilateral Fibromyalgia Arthritis Depression Hypertension History of MRSA infection Degenerative joint disease of left hip Pain of left hip joint Surgical History Surgical History H/O: hysterectomy S/P total hip arthroplasty History of cervical spinal surgery History of kyphoplasty History of total left hip arthroplasty Family History Family History Other Asthma Depression Diabetes mellitus Family history of arthritis Heart disease Hypertension Kidney disorder Social History Social History Smoking packs per day: 0.5 Smoking cigarettes per day: 10.0 Years smoked: 30 Smoking pack-years: 15.00 Smoking status: Light tobacco smoker Tobacco type: cigarettes Second hand tobacco smoke exposure: Yes Additional smoking assessment comments: PT DENIES ALL FORMS OF TOBACCO USE Alcohol intake: current Drinks per week: 2 Alcohol use details: 3-4 per year Substance use: current Substance use type: marijuana Other substance usage details: DAILY Lack of Transportation: YES Lack of Food: Never True Current Housing: I Have Housing Concerned About Future Housing: No Difficulty Paying Gas/Electric Bills: No Difficulty Paying for Meds: No Currently Unemployed: No Education: Bachelor's Degree Difficulty w/ Childcare or Family Care: No Living arrangements: alone Additional occupation/education comments: disabled Gender identity (if verbalized by the patient): Female Spiritual care concerns: No Exam Const: General: cooperative, healthy appearing, comfortable, no acute distress, well developed, alert, awake and Physically active Orientation/consciousness: oriented to person, oriented to place and oriented to time HENMT: Head: normal to inspection, normocephalic and atraumatic Ears: hearing grossly normal bilaterally and external ears normal Face/Nose/Sinus: Normal external nose present Eyes: General: appearance normal, both eyes and all related structures Periorbital: periorbital findings normal Sclera: sclerae normal Pupils: Equal, round and reactive pupils present Neck: Neck: normal visual inspection Chest: Chest palpation & inspection: normal inspection of the chest Resp: Effort & Inspection: normal respiratory effort, able to speak in complete sentences and no respiratory distress Auscultation: clear to auscultation bilaterally Cardio: Jugular venous distension: no JVD Rate: regular rate Rhythm: regular rhythm GI: Inspection: normal to inspection GI Palp: Yes Soft to palpation Auscultation: normal bowel sounds Skin: General skin exam: normal color and no rashes or lesions noted Neuro: General: oriented to person, oriented to place and oriented to time Cranial nerves: Yes Equal, round and reactive pupils present Extrem: General: normal to inspection Course Course Emergency Course: Given a dose of amlodipine. Her BP remained stable and she was discharged home. Vital Signs Vital signs: Vital Signs Temperature 97.6 F 09/01/24 08:00 Pulse Rate 68 09/01/24 08:00 Respiratory Rate 17 09/01/24 08:00 Blood Pressure 144/61 H 09/01/24 08:00 Pulse Oximetry 98 09/01/24 08:00 Oxygen Delivery Room Air 09/01/24 08:00 Temperature 97.9 F 09/01/24 09:20 Pulse Rate 67 09/01/24 09:20 Respiratory Rate 17 09/01/24 09:20 Blood Pressure 120/66 09/01/24 09:20 Pulse Oximetry 96 09/01/24 09:20 Oxygen Delivery Room Air 09/01/24 09:20 Medical Decision Making Vital Signs Vital Signs: Vital Signs Temperature 97.6 F 09/01/24 08:00 Pulse Rate 68 09/01/24 08:00 Respiratory Rate 17 09/01/24 08:00 Blood Pressure 144/61 H 09/01/24 08:00 Pulse Oximetry 98 09/01/24 08:00 Oxygen Delivery Room Air 09/01/24 08:00 Temperature 97.9 F 09/01/24 09:20 Pulse Rate 67 09/01/24 09:20 Respiratory Rate 17 09/01/24 09:20 Blood Pressure 120/66 09/01/24 09:20 Pulse Oximetry 96 09/01/24 09:20 Oxygen Delivery Room Air 09/01/24 09:20 Discharge Plan Discharge Clinical Impression: Hypertension Patient Disposition: Home Condition: Stable Instructions: Chronic Hypertension (ED) Patient Language: Slovenian Prescriptions: No Action acetaminophen-codeine 300-60 mg tablet 1 tablet PO TID zolpidem 10 mg tablet 10 mg PO HS pantoprazole 40 mg Tablet,Delayed Release (Dr/Ec) 40 mg PO QAM Qty: 30 0RF nitrofurantoin macrocrystal 100 mg capsule 100 mg PO Q12H Qty: 7 0RF Rx Instructions: must administer with a meal/food Paxlovid 300 mg (150 mg x 2)-100 mg tablets,dose pack See Rx Instructions .ROUTE .COMPLEX Qty: 30 0RF Rx Instructions: take TWO 150 mg tablets of nirmatrelvir with ONE 100 mg tablet of ritonavir twice daily for 5 days clonazepam 0.5 mg tablet 0.5 mg PO PRN PRN (Reason: Anxiety) omeprazole 20 mg capsule,delayed release(DR/EC) 20 mg PO DAILY atenolol 50 mg tablet 50 mg PO QAM amlodipine 5 mg tablet 5 mg PO QAM bupropion HCl [Wellbutrin XL] 300 mg tablet extended release 24 hr 300 mg PO QAM oxybutynin chloride 10 mg tablet extended release 24hr 10 mg PO QAM calcium carbonate-vitamin D3 600 mg-5 mcg (200 unit) Tablet 1 tablet PO QAM gabapentin 600 mg tablet 600 mg PO TID aspirin 325 mg Tablet,Delayed Release (Dr/Ec) 650 mg PO DAILY 28 Days Qty: 56 0RF amoxicillin 500 mg capsule 500 mg PO ONCE Qty: 4 2RF Rx Instructions: Take all 4 tablets one hour prior to dental procedure. Follow-up/Referrals: Nikki,IMANI Bosch [Primary Care Provider] -
[2024-09-01] MEDS: amLODIPine BESYLATE 5 MG TABLET 10 MG PO (08:13)
[2024-09-01 08:30] VITALS: BP 125/68; PULSE 64; RESP 17; O2SAT 96
--- OUTSIDE RECORDS SUMMARY | 2024-09-01 08:55 | XMS_ITS | Clinical Summary ---
Author Organization [facility] Address [address] [place] [address] Phone Care Team Providers Care Inspector Paper Products Name Role Phone Josue Jordan Gerald LOPEZ Primary Care Provider [phone] Itzel ESCALANTE MD, Noris Unavailable [phone] Allergies Active Allergy Reactions Criticality Noted Date [...] 5 MG Tablet 04/08/2021 Active nystatin (MYCOSTATIN) 193287 UNIT/GM Cream 07/15/2021 Active omeprazole (PriLOSEC) 20 [...] Active Active Problems No known active problems Encounters Date Type Department Care Team Description 08/28/2024 2:00 PM CDT [facility] [address] [place] [address] Josue Jordan, JESSICA Tarsal tunnel syndrome, right lower limb Discharge Disposition: Discharged to home or Selfcare 08/27/2024 Travel 08/05/2024 Transcribe Orders [facility] Central Scheduling [address] [place] [address] Josue Jordan PAC 08/05/2024 Transcribe Orders [facility] [address] [place] [address] Josue Jordan, JESSICA Tarsal tunnel syndrome, right lower limb from Last 3 Months Immunizations Immunization Administration Dates Next Due Covid-19, [...] 1958 Hepatitis C Virus (HCV) Screening 1958 Mammogram 1958 TdaP Immunization 1958 Pap Smear 12/28/1979 Cervical Cancer Screening (CCS) 1988 HPV/Cotest 1988 Colonoscopy 12/28/2003 Colorectal Cancer Screening 12/28/2003 Cologuard 2008 Immunochemical Fecal Occult Blood 2008 Pneumococcal Immunization (50+ years) (1 of 1 - PCV) 2008 Zoster Immunization (1 of 2) 2008 SARS-COV-2 Immunization ( season) 2024 03/25/2024, 08/16/2022, 04/14/2021, Additional history exists Respiratory Syncytial Virus (RSV) Immunization (Adult) (1 - 1-dose 75+ series) 2033 Influenza Immunization Completed , 02/04/2022, 03/04/2021, Additional history exists Hepatitis B Immunization Aged Out No longer eligible based on patient's age to complete this topic Meningococcal Immunization (ACWY) Aged Out No longer eligible based on patient's age to complete this topic Rotavirus Immunization Aged Out No lo nger eligible based on patient's age to complete this topic Procedures Procedure Name Priority Date/Time Associated Diagnosis Comments EMG Routine 08/28/2024 2:00 PM CDT Tarsal tunnel syndrome, right lower limb from Last 3 Months Results * EMG (08/28/2024 2:00 PM CDT) Narrative Alexandre Murray MD - 08/28/2024 2:00 PM CDT Alexandre Murray MD 08/29/2024 8:30 AM Electromyogram Procedure Note Date of Procedure: 08/28/2024 Pre-operative Diagnosis: right lower extremity numbness, tingling and pain. Post-operative Diagnosis: Indications: Diagnostic Procedure Details Motor Nerve Conduction Studies: The right peroneal motor nerve shows normal distal motor latency, normal motor amplitude and normal conduction velocity. The right tibial motor nerve shows normal distal motor latency, normal motor amplitude and normal conduction velocity. Sensory Nerve Conduction Studies: The right sural sensory nerve shows normal sensory nerve peak latency and normal sensory amplitude. The right superficial peroneal sensory nerve shows normal sensory nerve peak latency and normal sensory amplitude. The bilateral medial plantar and lateral plantar sensory nerve shows normal sensory nerve peak latency and normal sensory amplitude. F waves: F wave latency for the right peroneal nerve was normal. F wave latency for the right tibial nerve was normal. EMG: Needle EMG of the right tibialis anterior and peroneus longus shows chronic neurogenic changes with reduced recruitment. Needle EMG of the right vastus medialis and gastrocnemius were normal. Summary This is an abnormal study consistent with a chronic right L4-L5 radiculopathy. There was no evidence of compression neuropathy of right lower extremity. Clinical correlation is recommended. Josue LOPEZ NEUROLOGY ORDERABLES V2 Final Result from Last 3 Months Insurance MEDICARE C [facility] Advance Directives Documents on File Type Date Recorded Patient Generator Rebuilder Expl anation Other Advance Directive 10/04/2021 10:12 AM PRD Care Teams Inspector Paper Products Relationship Specialty Start Date End Date Josue Jordan [facility] [address] [place] [address] PCP - General Physician Senior Label Specialist 07/05/21 Noris Robbins III, MD [address] [place] [address] Consulting Physician Urology 12/27/21
--- OUTSIDE RECORDS SUMMARY | 2024-09-01 08:55 | XMS_ITS | Continuity of Care Document ---
Author Organization [facility] Address [address] [place] [address] Care Team Providers Care Cash Manager Name Role Phone Unavailable Unavailable Unavailable Allergies, [...] route every day 5 MG - Active [place] 10 mg-325 mg tablet take 1 tablet [...] Diagnoses Date Provider Providers Copied on Encounter [facility], [address], [place], [id number], [facility] No Information 1-201 5 No Information OFFICE/OUTPA TIENT VISIT, NEW [facility], [address], [place], [id number], [facility] [place] [facility] low back pain (chief complaint) Myalgia and myositis, unspecifiedLumb osacral spondylosis without myelopathyBursi tis 8-201 4 No Information Referring Provider: Dipti Cobos, [address] , , [address] . tel:[phone] OFFICE/OUTPA TIENT VISIT, [facility], [address], [place], [id number], [facility] No Information [address] [place], [id number], [place]. tel:[phone] Referring Provider: Sheridan Bañuelos, [address] [place], [place] [address]rich[address] [facility] [place], [address]. tel:[phone] Family History Family Member Type Diagnosis Age At Onset Problem (finding) Family history of hyper tension Problem (finding) Family history of Diabe catia mellitus Problem (finding) Family history of heart problems Payers Payer name Insurance type Covered republican ID Authoriza tion(s) Medicare Part B [id number] Social History Type Description Quantity Date Captured [...]
--- OUTSIDE RECORDS SUMMARY | 2024-09-01 08:55 | XMS_ITS | Clinical Summary ---
Author Organization [facility] Address [address] [place] [address] Care Team Providers Care Fashion Styling Intern Name Role Phone Josue Jordan Primary Care Provider [phone] Jalen Gibbs MD Unavailable [phone] Allergies Active Allergy Reactions Criticality Noted Date [...] 05/12/2021 Assessment & Plan (05/12/2021 4:41 PM APPLICATION SECURITY DEVELOPER): This is likely secondary to her previous neck surgery. Overall this has to be addressed with diet modifications and maintaining soft diet. No specific GI intervention will be of great help. Chronic nausea 12/16/2020 Gastroesophageal reflux disease 12/16/2020 Assessment & Plan (05/12/2021 4:41 PM APPLICATION SECURITY DEVELOPER): Symptoms are much better at this time. [...] on file Legal Sex Female 7:14 AM APPLICATION SECURITY DEVELOPER Gender Identity Female 11/29/2019 6:03 PM CDT Sexual Orientation Not on file Obstetrics History Last Filed Vital Signs Vital Sign Reading Time Taken Comments Blood Pressure 141/89 11/24/2022 1:57 PM CDT Pulse 79 10/19/2022 3:10 PM CDT Temperature 36.9 C (98.5 F) 04/07/2021 3:01 PM APPLICATION SECURITY DEVELOPER Respiratory Rate 18 04/29/2021 11:32 AM APPLICATION SECURITY DEVELOPER Oxygen Saturation 93% 10/19/2022 3:10 PM CDT [...] - Tdap) 1969 Hepatitis B Screening 1976 Pneumococcal vaccine 65+ (1 of 1 - PCV) 2008 Zoster Vaccine (1 of 2) 2008 Fall Risk Assessment 04/07/2022 04/07/2021 Well Visit 65+ 12/28/2023 Covid-19 Vaccine (3 - 2023-2 5 season) 2024 10/13/2020, 09/15/2020 Influenza Vaccine (#1) 2024 , 02/05/2020, 02/04/2020, Additional history exists Medical Devices Implanted Type Area Telesales Supervisor Device Identifier Shelf Expiration Date Model / Serial / Lot Abyrx Os-201 Hemasorb Os-Spa Spatula Wax 2gm Bone Sterile - [id number] Implanted:Qty: 1 on 07/21/2020 by Jalen Gibbs MD at [facility] N/A: Spine Cervical Abyrx 02/18/2021 OS-201 / / [id number] [employer] 700-025 I Factor Allograft Putty Syringe Graft 2.5cc Bone - [id number] Implanted:Qty: 1 on 07/21/2020 by Jalen Gibbs MD at [facility] N/A: Spine Cervical [employer] [id number] 03/21/2023 700-025 / / [id number] Lore Spine Cerv 0 Deg W/Hole 7mm Implanted:Qty: 1 on 07/21/2020 by Jalen Gibbs MD at [facility] N/A: Spine Cervical [place] Spine [id number] 06/26/2024 / [id number] / Description:ID: [id number] Code: [id number] K2m [facility] [id number] Od4 Mm L12 Mm Self Tapping Spine Screw Bone Dark Blue - [id number] Implanted:Qty: 4 on 07/21/2020 by Jalen Gibbs MD at [facility] N/A: Spine Cervical Lore Spine [id number] / / Lore Spine [id number] 22mm 1 Level Constrain Spine Cervical Plate Bone - [id number] Implanted:Qty: 1 on 07/21/2020 by Jalen Gibbs MD at [facility] N/A: Spine Cervical Lore Spine [id number] / / Insurance IDPA IDPA Advance Directives For more information, please contact: [phone] * Full Code (Latest Code Status on File) Date Activated Date Inactivated Comments 04/07/2021 1:26 PM 04/07/2021 9:05 PM * Full Code Date Activated Date Inactivated Comments 04/07/2021 1:26 PM 04/07/2021 1:26 PM Care Teams Fashion Styling Intern Relationship Specialty Start Date End Date Josue Jordan PA [address] [place] [address] PCP - General 01/25/19 Jalen Gbibs MD [address] [facility] [address] [place] [address] Consulting Physician Neurosurgery 07/21/20
--- OUTSIDE RECORDS SUMMARY | 2024-09-01 08:55 | XMS_ITS | Referral Summary ---
Author Organization [facility] Address [address] [place] [address] Care Team Providers Care Tire Center Supervisor Name Role Phone Josue Jordan Primary Care Provider [phone] Jalen Gibbs MD Unavailable [phone] Allergies Active Allergy Reactions Criticality Noted Date [...] 05/12/2021 Assessment & Plan (05/12/2021 4:41 PM SALES REPRESENTATIVE CONSULTANT): This is likely secondary to her previous neck surgery. Overall this has to be addressed with diet modifications and maintaining soft diet. No specific GI intervention will be of great help. Chronic nausea 12/16/2020 Gastroesophageal reflux disease 12/16/2020 Assessment & Plan (05/12/2021 4:41 PM SALES REPRESENTATIVE CONSULTANT): Symptoms are much better at this time. [...] on file Legal Sex Female 7:14 AM SALES REPRESENTATIVE CONSULTANT Gender Identity Female 11/29/2019 6:03 PM CDT Sexual Orientation Not on file Last Filed Vital Signs Vital Sign Reading Time Taken Comments Blood Pressure 141/89 11/24/2022 1:57 PM CDT Pulse 79 10/19/2022 3:10 PM CDT Temperature 36.9 C (98.5 F) 04/07/2021 3:01 PM SALES REPRESENTATIVE CONSULTANT Respiratory Rate 18 04/29/2021 11:32 AM SALES REPRESENTATIVE CONSULTANT Oxygen Saturation 93% 10/19/2022 3:10 PM CDT Inhaled Oxygen Concentration - - Weight 103.4 kg (228 lb) 10/19/2022 3:10 PM CDT Height 167.6 cm (5' 6 ) 10/19/2022 3:10 PM CDT Body Mass Index 36.8 10/19/2022 3:10 PM CDT Plan of Treatment Not on file Medical Devices Implanted Type Area Data Services Developer Device Identifier Shelf Expiration Date Model / Serial / Lot Abyrx Os-201 Hemasorb Os-Spa Spatula Wax 2gm Bone Sterile - [id number] Implanted:Qty: 1 on 07/21/2020 by Jalen Gibbs MD at [facility] N/A: Spine Cervical Abyrx 02/18/2021 OS-201 / / [id number] [employer] 700-025 I Factor Allograft Putty Syringe Graft 2.5cc Bone - [id number] Implanted:Qty: 1 on 07/21/2020 by Jalen Gibbs MD at [facility] N/A: Spine Cervical [employer] [id number] 03/21/2023 700-025 / / [id number] [place] Spine Cerv 0 Deg W/Hole 7mm Implanted:Qty: 1 on 07/21/2020 by Jalen Gibbs MD at [facility] N/A: Spine Cervical Lore Spine [id number] 06/26/2024 / [id number] / Description:ID: [id number] Code: [id number] [facility] [id number] Od4 Mm L12 Mm Self Tapping Spine Screw Bone Dark Blue - [id number] Implanted:Qty: 4 on 07/21/2020 by Jalen Gibbs MD at [facility] N/A: Spine Cervical Lore Spine [id number] / / [place] Spine [id number] 22mm 1 Level Constrain Spine Cervical Plate Bone - [id number] Implanted:Qty: 1 on 07/21/2020 by Jalen Gibbs MD at [facility] N/A: Spine Cervical Lore Spine [id number] / / Insurance [facility] IDPA Advance Directives For more information, please contact: [phone] * Full Code (Latest Code Status on File) Date Activated Date Inactivated Comments 04/07/2021 1:26 PM 04/07/2021 9:05 PM * Full Code Date Activated Date Inactivated Comments 04/07/2021 1:26 PM 04/07/2021 1:26 PM Care Teams Tire Center Supervisor Relationship Specialty Start Date End Date Josue Jordan PA [address] [place] [address] PCP - General 01/25/19 Jalen Gibbs MD [address] [facility] [address] [place] [address] Consulting Physician Neurosurgery 07/21/20
--- OUTSIDE RECORDS SUMMARY | 2024-09-01 08:56 | XMS_ITS | Data Portability ---
Author Organization [facility] [address] [place] [address] Care Team Providers Care Boiler Coverer Name Role Phone GILBERT JORDAN Primary Care Provider Assessment No assessment recorded. Plan of Treatment Reminders Order Date Submit Date Provider Last Modified By Organization Details Last Modified Time Details Appointments ANY 15 2024 02:30P M Gilbert Jordan PA-C Not available Not available Not available Lab drug screen, urine 2023 024 [email or web address] In-Office Order, Internal Use Only DO Not Attach Compendium DO Not Attach Compendium, Do Not Delete/merge, [id number] 04/25/2024 17:17:36 Referral None recorded. Procedures None recorded. Surgeries None recorded. Imaging electromy ogram + nerve conductio n study 2024 025 [facility] Scheduling, [address] [place], [address], 08/29/2024 09:32:42 MAMMO, screening , digital, bilateral 2024 025 [facility], [address] [place], [address], 07/16/2024 08:55:47 XR, foot, 2 view 2023 024 [facility] (Registration ), [address] [place], [address], 01/30/2024 22:12:05 Medication Orders meclizine 25 mg tablet 2024 025 AMARI [facility], [address] [place] [address], [address], [place], [address], 07/09/2024 16:10:24 triamcino lone acetonide 0.5 % topical ointment [email or web address] [facility], [address] [place] [address], [address], [place], [address], 07/09/2024 16:45:04 Patient TargetsNo targets recorded. Patient Instructions Encounter Date Encounter Id Patient Instructions Last Modified By Organization Details Last Modified Time 01/30/2024 [id number] A healthy lifestyle: care instructions ann Not available 01/30/2024 17:51:40 04/25/2024 [id number] A healthy lifestyle: care instructions anney Not available 04/25/2024 17:17:49 07/09/2024 [id number] mammogram: about this test jnanney Not available 07/09/2024 16:45:04 A healthy lifestyle: care instructions anney Not available 07/09/2024 16:08:58 08/05/2024 [id number] A healthy lifestyle: care instructions ann Not available 08/05/2024 11:19:11 Reason for Referral None Reported. Results Created Date Observation Date Name Description Value Unit Range Abnormal Flag Note LastModifiedBy Organization Detail LastModifiedTime 04/25/2004/25/2024 drug scree n, urine Methamphetam ine Negati ve Not Available In-Office Order Internal Use Only DO Not Attach Compendium DO Not Attach Compendium, Do Not Delete/merge, [id number] 04/23/2024 16:43:30 04/25/20 24 04/25/2024 drug scree n, urine THC Positi ve Not Available In-Office Order Internal Use Only DO Not Attach Compendium DO Not Attach Compendium, Do Not Delete/merge, [id number] 04/23/2024 16:43:30 04/25/20 24 04/25/2024 drug scree n, urine Benzodiazepi ne (Bzo) Negati ve Not Available In-Office Order Internal Use Only DO Not Attach Compendium DO Not Attach Compendium, Do Not Delete/merge, [id number] 04/23/2024 16:43:30 04/25/20 24 04/25/2024 drug scree n, urine Cocaine (Cliff) Negati ve Not Available In-Office Order Internal Use Only DO Not Attach Compendium DO Not Attach Compendium, Do Not Delete/merge, [id number] 04/23/2024 16:43:30 04/25/20 24 04/25/2024 drug scree n, urine Methadone (Mtd) Negati ve Not Available In-Office Order Internal Use Only DO Not Attach Compendium DO Not Attach Compendium, Do Not Delete/merge, [id number] 04/23/2024 16:43:30 04/25/20 24 04/25/2024 drug scree n, urine Buprenorphin e (Bup) Negati ve Not Available In-Office Order Internal Use Only DO Not Attach Compendium DO Not Attach Compendium, Do Not Delete/merge, [id number] 04/23/2024 16:43:30 04/25/20 24 04/25/2024 drug scree n, urine Oxycodone (Oxy) Negati ve Not Available In-Office Order Internal Use Only DO Not Attach Compendium DO Not Attach Compendium, Do Not Delete/merge, [id number] 04/23/2024 16:43:30 04/25/20 24 04/25/2024 drug scree n, urine Barbiturates (Bar) Negati ve Not Available In-Office Order Internal Use Only DO Not Attach Compendium DO Not Attach Compendium, Do Not Delete/merge, [id number] 04/23/2024 16:43:30 04/25/20 24 04/25/2024 drug scree n, urine MDMA (Ecstacy) Negati ve Not Available In-Office Order Internal Use Only DO Not Attach Compendium DO Not Attach Compendium, Do Not Delete/merge, [id number] 04/23/2024 16:43:30 04/25/20 24 04/25/2024 drug scree n, urine Amphetamines (Amp) Negati ve Not Available In-Office Order Internal Use Only DO Not Attach Compendium DO Not Attach Compendium, Do Not Delete/merge, [id number] 04/23/2024 16:43:30 04/25/20 24 04/25/2024 drug scree n, urine Opiates (opi) Positi ve Not Available In-Office Order Internal Use Only DO Not Attach Compendium DO Not Attach Compendium, Do Not Delete/merge, [id number] 04/23/2024 16:43:30 04/25/20 24 04/25/2024 drug scree n, urine Phencyclidin e (Pcp) Negati ve Not Available In-Office Order Internal Use Only DO Not Attach Compendium DO Not Attach Compendium, Do Not Delete/merge, [id number] 04/23/2024 16:43:30 04/25/20 24 04/25/2024 drug scree n, urine Tricyclic Antidepressa nts Invali d Not Available In-Office Order Internal Use Only DO Not Attach Compendium DO Not Attach Compendium, Do Not Delete/merge, [id number] 04/23/2024 16:43:30 04/25/20 24 04/25/2024 drug scree n, urine Fentanyl Negati ve Not Available In-Office Order Internal Use Only DO Not Attach Compendium DO Not Attach Compendium, Do Not Delete/merge, [id number] 04/23/2024 16:43:30 01/30/20 24 01/30/2024 XR, foot, 2 view No observ ation record ed. [facility] [address] [place], [address], 01/31/2024 16:36:35 06/21/19 25 06/21/2024 CT, head, w/o contr ast [facility] observ [facility] [address] [place], [address], 06/21/2024 14:22:54 06/21/19 25 06/21/2024 XR, chest [facility] observ [facility]ion [facility] [address] [place], [address], 06/21/2024 14:23:05 07/16/19 25 07/16/2024 MAMMO , scree herbert, digit al, bilat eral No observ ation record ed. [facility] [address] [place], [address], 07/16/2024 10:45:21 07/16/19 25 07/16/2024 XR, hip + pelvi s, bilat eral No observ [facility]ion [email or web address] [address] [place], [address], 07/16/2024 11:33:58 08/30/19 25 08/28/2024 elect romyo gram + nerve condu ction study No observ ation record ed. [facility] (Radiology) [address] [place], [address], 08/29/2024 12:46:07 08/30/19 25 08/28/2024 elect romyo gram + nerve condu ction study No observ ation record ed. [facility] (Radiology) [address] [place], [address], 08/29/2024 11:45:44 Result Notes None recorded. Problems Name Problem SNOMED Code Status Onset Date Resolution Date Notes Provider Name and Address Organization Details Recorded Time Insomnia 542694848 Active 2018 Y[place]Y [place], [place] [facility] 11:44:14 Anxiety 78161833 Active 2018 Y[place] [facility] 11:44:14 Hypertensive disorder 36598240 Active 2018 YURY [place] [facility] 11:44:14 Problem Notes None recorded. Procedures Surgical History Date Name Laterality Status Provider Name and Address Organization Details Recorded Time 07/16/19 Date of Last Mammogram completed YURY Hyde - [facility] 08/05/2024 11:02:03 02/01/20 22 Date of Last Pap Smear completed Alise Seth MA [place] - [facility] 10/01/2021 16:31:44 05/22/19 14 colonoscopy completed Alise Seth [place] [facility] 09/09/2020 11:52:04 03/09/19 99 Total hysterectomy completed Emilia Nichole [place] [facility] 06/09/2020 10:31:41 Back Surgery completed Emilie Todd [place] [facility] 11/29/2017 16:21:35 operation on hip joint completed Alise Seth [place] [facility] 09/09/2020 11:51:26 Carpal tunnel surgery completed Alise Seth [place] [facility] 09/09/2020 11:51:39 Imaging Results Imaging Date Name Status LastModified by Organization Details LastModified Time 01/30/2024 XR, foot, 2 view completed [facility] [address] [place], [address], 01/31/2024 16:36:35 06/21/2024 CT, head, w/o contrast completed [facility] [address] [place], [address], 06/21/2024 14:22:54 06/21/2024 XR, chest completed [facility] [address] [place], [address], 06/21/2024 14:23:05 07/16/2024 MAMMO, screening, digital, bilateral completed [facility] [address] [place], [address], 07/16/2024 10:45:21 07/16/2024 XR, hip + pelvis, bilateral completed [facility] [address] [place], [address], 07/16/2024 11:33:58 08/28/2024 electromyogram + nerve conduction study completed [facility] (Radiology) [address] [place], [address], 08/29/2024 12:46:07 08/28/2024 electromyogram + nerve conduction study completed [facility] (Radiology) [address] [place], [address], 08/29/2024 11:45:44 Procedure Notes None recorded. Medical Equipment None Reported. Allergies Allergen ID Allergen Name Allergen Category Reaction Reaction Severity Criticality Documentation Date Start Date Code Code System Note Provider Name and Address Organization Details Recorded Time 030431 tetracycl ine medicatio n rash Not available Not available 11/29/2017 70439 RxNorm Not Available Not Available Not Available [...] TABLET BY MOUTH 3 TIMES A DAY 2024 active Not Available Not Available Not Avai lable tizanidin e 2 mg tablet 11/29 completed [...] MOUTH TWICE A DAY FOR 5 DAYS 12/26/ 2024 active Not Available Not Available Not [...] active Not Available Not Available Not Avai lableatha mupirocin 2 % topical ointment 10/01 completed [...] Not Available Not Available meclizine 25 mg chewable tablet TAKE 1 TABLET 3 TIMES A DAY BY ORAL ROUTE DIRECTED FOR 30 DAYS. 2024 active Not Available Not Available Not Avai lable Senna-S 8.6 mg-50 mg tablet 10/01 completed [...] Updated DateTime 4 167.64 cm 38.4 kg/m2 357190. 98 g 96 % 96 % 73 /min 104 mm[Hg] 71 mm[Hg] Neli Mcintyre [place] [facility] 4 17:39:46 Date Recorded Body height Body mass index (BMI) Body weight Oxygen saturation Oxygen saturation in Arterial blood by Pulse oximetry Heart rate Systolic blood pressure Diastolic blood pressure Provider Name and Address Organization Details Last Updated DateTime 4 167.64 cm 39.2 kg/m2 615111. 95 g 99 % 99 % 88 /min 126 mm[Hg] 81 mm[Hg] Neli [place]tyre [place] [facility] 4 17:08:13 Date Recorded Body height Body mass index (BMI) Body weight Oxygen saturation Oxygen saturation in Arterial blood by Pulse oximetry Heart rate Systolic blood pressure Diastolic blood pressure Provider Name and Address Organization Details Last Updated DateTime 5 167.64 cm 37.9 kg/m2 920357. 21 g 98 % 98 % 86 /min 130 mm[Hg] 86 mm[Hg] Alise Seth MA [facility] 5 15:59:58 Date Recorded Body height Body mass index (BMI) Body weight Oxygen saturation Oxygen saturation in Arterial blood by Pulse oximetry Heart rate Systolic blood pressure Diastolic blood pressure Provider Name and Address Organization Details Last Updated DateTime 5 167.64 cm 39.5 kg/m2 207675. 13 g 96 % 96 % 80 /min 138 mm[Hg] 80 mm[Hg] Alise Seth MA [facility] 5 11:03:30 Social History Question Answer Notes LastModified by Organizat ion Details LastModified Time Tobacco Smoking Status Former Smoker Emilie Todd MA [facility], [facility] 11/29/2017 16:22:22 What Is Your Level Of [...] Date Of Your Most Recent Tobacco Screening? 08/05/2024 Information not available 08/05/2024 What Is Your Relationship Status? Single Information [...] Anxious, Or Unable To Sleep At Night)? [id number] Information not available 04/27/2023 Do You Use Any Illicit Or Recreational Drugs? Yes Marijuana [email or web address] Information not available 05/02/2022 Has Tobacco Cessation Counseling Been Provided? No Information not available 10/11/2018 On What Date Was Tobacco Cessation Counseling Provided? 08/05/2024 Information not available 08/05/2024 How Many Years Have You Smoked Tobacco? [...] Hepatitis N Liver Disease N Headaches N Osteoporosis N Heart Failure N Gynecological History Statement/Question Response Date of Last Pap Smear 06/22/2021 Date of Last Mammogram 07/16/2024 Obstetrics History GPAL:G 0 P 0 0 0 0 Immunizations Vaccine Type Date Status Note Provider Nam e and Address Organization Details Recorded Time Influenza, split virus, quadrivalent, preservative 9 completed YUR[place] [facility] 10/01/2019 15:08:56 Influenza, split virus, quadrivalent, preservative 0 completed Y[place] [facility] 09/09/2020 11:44:15 Influenza, split virus, quadrivalent, PF 0 [place] [facility] 09/09/2020 11:44:15 Influenza, split [...] LNP-S, PF, 50 mcg/0.5 mL 4 [place] [facility] 03/25/2024 14:25:18 Influenza, high-dose, trivalent, PF 4 completed [place] [facility] 03/25/2024 14:25:18 Past Encounters Encounter ID Performer Location Encounter Start Date Encounter Closed Date Diagnosis/Indication Diagnosis SNOMED-CT Code Diagnosis ICD10 Code Diagnosis Note [id number] iGlbert Jordan PA-C [facility] [address] [place] [address] 11/29/2017 15:44:29 11/29/2017 17:09:25 Osteoarthritis 103437571 M15.0 Lumbar radiculopathy 128 291869 M54.16 [id number] Gilbert Jordan PA-C [facility] [address] [place] [address] 12/05/2017 15:30:57 12/05/2017 16:38:06 Sensorineural hearing loss of bilateral ears 056770691 H90.3 [id number] Gilbert Jordan PA-C [facility] [address] [place] [address] 12/26/2017 16:40:32 12/26/2017 17:46:56 Degeneration of lumbar intervertebral disc 50616198 M51.36 Eruption 148515954 R21 [id number] Gilbert Jordan PA-C [facility] [address] [place] [address] 03/12/2018 11:30:10 03/12/2018 12:07:42 Administration of influenza vaccine 89133170 Z23 Generalize d anxiety disorder 22285829 F41.1 Spasm of back muscles 20 9853446 M62.967 [id number] Gilbert Jordan PA-C [facility] [address] [place] [address] 06/20/2018 10:43:25 06/20/2018 12:04:05 Pain of left hip joint 2837395690 59566 M25.552 Lumbar radiculopathy 128 732875 M54.16 Degenerati on of lumbar intervertebral disc 69558366 M51.36 Essential hypertension 14639175 I10 [id number] Gilbert Jordan PA-C [facility] [address] [place] [address] 07/04/2018 10:52:55 07/04/2018 11:47:14 Lumbar radiculopathy 191732822 M54.16 Essential hypertension 94574113 I10 [id number] Gilbert Jordan PA-C [facility] [address] [place] [address] 07/18/2018 10:45:54 07/18/2018 12:30:33 Essential hypertension 93978741 I10 [id number] Gilbert Jordan PA-C [facility] [address] [place] [address] 08/01/2018 10:43:14 08/01/2018 12:32:14 Essential hypertension 12174989 I10 Lumbar radiculopathy 128 292117 M54.16 [id number] Gilbert Jordan PA-C [facility] [address] [place] [address] 10/11/2018 14:04:49 10/11/2018 15:39:55 Essential hypertension 25357399 I10 Simple renal cyst 540119 09 N28.1 Primary insomnia 1453416 F51.01 [id number] Gilbert Jordan PA-C [facility] [address] [place] [address] 11/20/2018 09:54:30 11/20/2018 11:26:34 Pain of left hip joint 9551194977 27786 M25.552 Pain in left knee 881339 9314 24783 M25.364 [id number] Gilbert Jordan PA-C [facility] [address] [place] [address] 11/30/2018 11:32:44 11/30/2018 12:22:12 Pain of left hip joint 6486376862 20386 M25.155 [id number] Gilbert Jordan PA-C [facility] [address] [place] [address] 12/13/2018 11:29:07 12/13/2018 12:29:48 Arthritis of left hip 7484552877 765471 M13.309 [id number] Gilbert Jordan PA-C [facility] [address] [place] [address] 02/08/2019 11:53:39 02/11/2019 11:28:55 Anxiety 11975875 F41.1 Insomnia 933745522 G47.0 9 Arthritis of left hip 10 44336730 676053 M13.437 [id number] Gilbert Jordan PA-C [facility] [address] [place] [address] 09/23/2019 11:09:04 09/24/2019 10:39:03 Essential hypertension 72802537 I10 Generalize d anxiety disorder 90862820 F41.1 Osteoarthritis 863589297 M15.0 [id number] Gilbert Joradn PA-C [facility] [address] [place] [address] 10/01/2019 09:45:44 10/01/2019 15:30:44 Strain of right trapezius muscle 3942633281 7863815 S29.012A [id number] Gilbert Jordan PA-C [facility] [address] [place] [address] 10/31/2019 16:08:12 10/31/2019 17:06:38 Anxiety 43325558 F41.1 Cervical radiculopathy 63603158 M54.12 Localized, primary osteoarthritis 640615022 M15.0 Candidiasis of skin 4988 3006 B37.2 [id number] Gilbert Jordan PA-C [facility] [address] [place] [address] 11/28/2019 10:13:37 11/29/2019 06:28:46 Cervical radiculopathy 83737989 M54.12 Essential hypertension 54799209 I10 [id number] Gilbert Jordan PA-C [facility] [address] [place] [address] 02/10/2020 11:50:57 02/10/2020 12:40:36 Generalized anxiety disorder 45600595 F41.1 Chronic depression 68689 0009 F34.1 [id number] Gilbert Jordan PA-C [facility] [address] [place] [address] 02/18/2020 09:30:40 02/18/2020 19:32:43 [id number] ANASTASIA Bland [facility] [address] [place] [address] 02/24/2020 09:43:57 02/24/2020 13:31:00 Chronic depression 732263614 F34.1 [id number] Gilbert Jordan PA-C [facility] [address] [place] [address] 06/09/2020 09:38:52 06/10/2020 09:02:56 Osteoporosis 06850582 M81.0 Screening for osteoporosis 373121926 Z13.430 [id number] Gilbert Jordan PA-C [facility] [address] [place] [address] 09/09/2020 10:58:28 09/10/2020 14:37:01 Urinary tract infectious disease 60538842 N10 Essential hypertension 32759270 I10 Primary fi bromyalgia syndrome 93882249 M79.7 [id number] Gilbert Jordan PA-C [facility] [address] [place] [address] 09/28/2020 14:41:01 10/05/2020 12:02:36 Anxiety 61831083 F41.1 Multiple joint pain 3567 8005 M25.59 Hypertensive disorder 38 191601 I10 Insomnia 296989514 G47.0 9 [id number] Gilbert Jordan PA-C [facility] [address] [place] [address] 11/03/2020 09:29:11 11/04/2020 05:51:29 Gastroesophageal reflux disease without esophagitis 336897824 K21.9 [id number] Gilbert Jordan PA-C [facility] [address] [place] [address] 11/30/2020 15:04:03 11/30/2020 16:04:31 Nausea 348111695 R11.0 Gastroesop hageal reflux disease 969671059 K21.9 Anxiety 21466079 F41.1 Hypertensive disorder 38 729527 I10 Esophageal dysphagia 408 44885 R13.19 Nausea and vomiting 1693 2000 R11.2 Essential hypertension 91389860 I10 Chronic depression 33153 0009 F34.1 [id number] ANASTASIA Bland [facility] [address] [place] [address] 06/16/2021 10:45:30 06/16/2021 11:52:47 Hypertensive disorder 83042317 I10 Pain in ri ght hip joint 0567519744 54625 M25.551 Female str ess incontinence 06643401 N39.3 [id number] ANASTASIA Bland [facility] [address] [place] [address] 10/01/2021 16:24:58 10/01/2021 17:00:18 Primary fibromyalgia syndrome 50542488 M79.7 Fatigue 84078380 R53.83 [id number] Gilbert Jordan PA-C [facility] [address] [place] [address] 05/02/2022 10:51:13 05/02/2022 11:58:01 Long-term drug therapy 673438015 Z79.899 Obesity 570389360 E66.9 Degenerati ve joint disease involving multiple joints 914480769 M15.0 Lumbar radiculopathy 128 113394 M54.16 Adult heal th examination 724525568 Z00.00 [id number] Gilbert Jordan PA-C [facility] [address] [place] [address] 08/02/2022 17:22:12 08/03/2022 12:07:11 Edema of lower extremity 210736724 R60.0 Idiopathic peripheral neuropathy 98760078 G60.8 Overweight 621430984 E66 .3 [id number] Alise Seth MA [facility] [address] [place] [address] 08/16/2022 17:23:48 08/17/2022 12:42:32 Administration of SARS-CoV-2 mRNA vaccine 0536340139 Z23 [id number] Gilbert Jordan PA-C [facility] [address] [place] [address] 09/22/2022 11:21:17 09/23/2022 10:31:33 Varicose veins of lower extremity 85179320 I83.91 Overweight 037160769 E66 .3 [id number] Ramya Cordova MA [facility] [address] [place] [address] 01/02/2023 09:55:00 01/03/2023 11:17:41 Lumbar radiculopathy 961939241 M54.16 Osteoarthritis 377629961 M15.0 Cervical radiculopathy 57409522 M54.12 Insomnia 629365486 G47.0 9 Overweight 958834573 E66 .3 Essential hypertension 58279054 I10 [id number] Gilbert Jordan PA-C [facility] [address] [place] [address] 04/27/2023 11:22:22 05/04/2023 14:03:17 Long-term drug therapy 511132984 Z79.899 Bilateral cataracts 9572 2003 H25.011 Family his tory of coronary arteriosclerosis 566508777 Z82.49 Pre-surger y evaluation 589905424 Z01.818 Generalize d anxiety disorder 71181604 F41.1 [id number] Gilbert Jordan PA-C [facility] [address] [place] [address] 08/31/2023 15:31:07 09/07/2023 15:15:28 Mixed anxiety and depressive disorder 143761380 F41.8 [id number] Gilbert Jordan PA-C [facility] [address] [place] [address] 09/27/2023 14:47:22 10/02/2023 14:56:38 Acute urinary tract infection 570350301 N39.0 [facility] 225902843 E66 .3 [id number] Alise Seth MA [facility] [address] [place] [address] 10/09/2023 16:38:48 10/17/2023 12:49:36 Acute urinary tract infection 742829059 N39.0 [id number] Gilbert Jordan PA-C [facility] [address] [place] [address] 10/24/2023 17:54:28 10/31/2023 20:32:49 Urinary incontinence 676427552 N39.46 Bilateral foot congenital pes cavus 0138518498 6709944 Q66.71 [id number] Gilbert Jordan PA-C [facility] [address] [place] [address] 01/30/2024 17:32:05 01/31/2024 09:02:55 Pain in right foot 4614911588 50104 M79.671 [facility] 525585179 E66 .3 [id number] Neli Mcintyre MA [facility] [address] [place] [address] 03/25/2024 14:09:13 03/26/2024 11:31:06 Administration of SARS-CoV-2 mRNA vaccine 7666912758 Z23 [id number] Gilebrt Jordan PA-C [facility] [address] [place] [address] 04/25/2024 16:47:37 04/30/2024 11:06:48 Long-term drug therapy 743780117 Z79.899 Lumbar radiculopathy 128 112026 M54.16 Mixed anxi ety and depressive disorder 980022822 F41.8 Overweight 970759952 E66 .3 [id number] Gilbert Jordan PA-C [facility] [address] [place] [address] 07/09/2024 15:49:15 07/15/2024 09:50:36 Candidiasis of skin 74859610 B37.2 Screening mammography 24 738949 Z12.31 Bilateral tinnitus 26906 88045 102 H93.13 Overweight 189725412 E66 .3 Gastroesop hageal reflux disease without esophagitis 208523880 K21.9 [id number] Gilbert Jordan PA-C [facility] [address] [place] [address] 08/05/2024 10:38:13 08/06/2024 10:32:14 Tarsal tunnel syndrome 57089687 G57.51 Pain in right foot 41560 33557 25492 M79.671 Overweight 914091682 E66 .3 Health Concerns Section Related Observation LastModified by Organization Detai ls LastModified Time None Recorded Concern Status LastModified by Organization Details LastModified Time None Recorded Advance Directives Directive None Recorded Payers Encounter Date Sequence Insurance Name Policy Number Policy Ignacio Covered Member ID Ignacio Member ID Guarantor Name 01/30/2024 2 [place] WHEN MEDICARE OR MEDICARE REPLACEMENT PRIMARY) Janice Chavez [id number] Janice Chavez 01/30/2024 1 [employer] (MEDICARE REPLACEMENT/AD VANTAGE - PPO) Janice Chavez [id number] Janice Chavez 03/25/2024 1 [employer] (MEDICARE REPLACEMENT/AD VANTAGE - PPO) Janice Chavez [id number] Janice Chavez 04/25/2024 1 [employer] (MEDICARE REPLACEMENT/AD VANTAGE - PPO) Janice Chavez [id number] Janice Chavez 07/09/2024 1 [employer] (MEDICARE REPLACEMENT/AD VANTAGE - PPO) Janice Chavez [id number] Janice Chavez 08/05/2024 1 [employer] (MEDICARE REPLACEMENT/AD VANTAGE - PPO) Janice Chavez [id number] Janice Chavez Notes Date Note Type Note Provider Name and Address Organization Details Recorded Time 01/30/2024 text/html rt foot pain on top with a large knot on top of foot...couple months...no known injury... Gilbert Jordan PA-C Attn: Accounting,[address] [place], [address], [facility] 01/30/2024 17:52:14 04/25/2024 text/html 3 month vs control...trying to get some home excercize...and lose weight... Gilbert Jordan PA-C Attn: Accounting,[address] [place], [address], [facility] 04/25/2024 17:18:42 07/09/2024 text/html static sound in ears began 2 weeks ago...also some neck pain (actually has been present for a long time and worsened)..also omeprazole may not be working worse for past week Gilbert Jordan PA-C Attn: Accounting,[address] [place], [address], [facility] 07/09/2024 16:12:59 08/05/2024 text/html has a sharp pain in top of rt foot with a knot that swells .also has tingling in rt foot..worsens with movement.. Gilbert Jordan PA-C Attn: Accounting,[address] [place], [address], [facility] 08/05/2024 11:20:13 OBGyn Episode No OBEpisode recorded.
[2024-09-01 09:00] VITALS: BP 136/61; PULSE 68; RESP 17; O2SAT 96
[2024-09-01 09:20] VITALS: BP 120/66; PULSE 67; RESP 17; TEMP 36.6; O2SAT 96
== END 2024-09-01 09:20 | disposition home or self-care (01) ==
PROVIDERS: Emergency Provider Family Medicine; PCP Physician Assistant
DX: I10 Essential (primary) hypertension (principal); F17.210 Nicotine dependence, cigarettes, uncomplicated
CPT/HCPCS: 99283; A9270

== ENCOUNTER 2024-09-23 07:49 | Outpatient (CLI) | payer MEDICARE, SELFPAY ==
--- NOTE | ~2024-09-23 | XR_ITS ---
XR foot LT min 3V Ordering provider: Lion Armijo MD History: . CHORNIC MALACHI FOOT AND ANKLE PAIN,NKI . Comparison: None. FINDINGS: BONES: No acute fracture or dislocation. JOINT SPACES: Narrowing of the proximal and distal interphalangeal joints. No tarsal coalition. SOFT TISSUES: Normal. Calcaneal spur. IMPRESSION: No acute osseous abnormality left foot. Calcaneal spur. Polyarticular osteoarthritic changes. Reviewed, dictated and finalized at location A.
--- NOTE | ~2024-09-23 | XR_ITS ---
Right foot Technique: AP, oblique, and lateral views were obtained. Clinical History: Pain Findings: No acute fracture or dislocation is seen. Osseous alignment is anatomic. There is mild to m oderate degenerative change of the first through third tarsometatarsal joints. Soft tissues are unrem arkable. Impression: Mild to moderate degenerative change of the first through third tarsometatarsal joints. Reviewed, dictated and finalized at location M. Impression: Mild to moderate degenerative change of the first through third tarsometatarsal joints.
--- NOTE | ~2024-09-23 | XR_ITS ---
XR ankle RT min 3V Ordering provider: Lion Armijo MD History: . CHORNIC MALACHI FOOT AND ANKLE PAIN,NKI . Comparison: None. FINDINGS: BONES: No acute fracture or dislocation. JOINT SPACES: Normal. SOFT TISSUES: Normal. Calcaneal spur. IMPRESSION: No acute osseous abnormality of the right ankle. Reviewed, dictated and finalized at location A.
--- NOTE | ~2024-09-23 | XR_ITS ---
XR ankle LT min 3V Ordering provider: Lion Armijo MD History: . CHORNIC MALACHI FOOT AND ANKLE PAIN,NKI . Comparison: None. FINDINGS: BONES: No acute fracture or dislocation. Small lucency is seen in the medial aspect of the talus bone which may be degenerative. Osteochondral defect is less likely although cannot be excluded. Follow-u p advised. JOINT SPACES: The ankle mortise is normal. SOFT TISSUES: Normal. Calcaneal spur. IMPRESSION: No acute osseous abnormality left ankle. Lucency seen in the medial aspect of the talus bone which may be degenerative. Osteochondral defect i s not excluded. Follow-up advised. Reviewed, dictated and finalized at location A. IMPRESSION: No acute osseous abnormality left ankle. Lucency seen in the medial aspect of the talus bone which may be degenerative. Osteochondral defect is not excluded. Follow-up advised.
--- OUTSIDE RECORDS SUMMARY | 2024-09-23 07:56 | XMS_ITS | Clinical Summary ---
Author Organization [facility] Address [address] [place] [address] Phone Care Team Providers Care Parking Lot Laborer Name Role Phone Josue Jordan Gerald LOPEZ Primary Care Provider [phone] Itzel ESCALANTE MD, Noris Unavailable [phone] Allergies Active Allergy Reactions Criticality Noted Date [...] 5 MG Tablet 04/08/2021 Active nystatin (MYCOSTATIN) 014493 UNIT/GM Cream 07/15/2021 Active omeprazole (PriLOSEC) 20 [...] Team Description 08/28/2024 2:00 PM CDT [facility] [address] [place] [address] Josue Jordan, JESSICA Tarsal tunnel syndrome, right lower limb Discharge Disposition: Discharged to home or Selfcare 08/27/2024 Travel 08/05/2024 Transcribe Orders [facility] [address] [place] [address] Josue Jordan PAC 08/05/2024 Transcribe Orders [facility] [address] [place] [address] Josue Jordan, JESSICA Tarsal tunnel syndrome, right [...] CDT Tarsal tunnel syndrome, right lower limb EMG/NCV 08/28/2024 12:00 AM CDT from Last 3 Months Results * EMG [...] lower extremity. Clinical correlation is recommended. Josue Jordan [facility] NEUROLOGY ORDERABLES V2 Final Result * EMG/NCV (08/28/2024 12:00 AM CDT) 08/28/2024 Provider Scan NEUROLOGY ORDERABLES Final Resul t SCAN from Last 3 Months Insurance MEDICARE C [employer] Advance Directives Documents on File Type Date Recorded Patient Oven Technician Expl anation Other Advance Directive 10/04/2021 10:12 AM PRD Care Teams Parking Lot Laborer Relationship Specialty Start Date End Date Josue Jordan, PAC [address] [place] [address] PCP - General Physician Spot Welder Body Assembly 07/05/21 Noris Robbins III, MD [address] [place] [address] Consulting Physician Urology 12/27/21
--- OUTSIDE RECORDS SUMMARY | 2024-09-23 07:56 | XMS_ITS | Data Portability ---
Author Organization [facility] Address [address] [place] [address] Care Team Providers Care Nonprofit Fundraiser Name Role Phone GILBERT JORDAN Primary Care Provider Assessment No assessment recorded. Plan of Treatment Reminders Order Date Submit Date Provider Last Modified By Organization Details Last Modified Time Details Appointments None recorded. Lab drug screen, urine 2023 024 [email or web address] In-Office Order, Internal Use Only DO Not Attach Compendium DO Not Attach Compendium, Do Not Delete/merge, [id number] 17:17:36 Referral general surgeon referral - Would like seen in [facility] 2024 025 [facility], [address] [place], [address], 5 12:13:41 Procedures None recorded. Surgeries None recorded. Imaging electromy ogram + nerve conductio n study [address] [facility] ([facility]) Scheduling, [address] [place], [address], 5 09:32:42 MAMMO, screening , digital, bilateral 2024 025 [facility], [address] [place], [address], 5 08:55:47 Medication Orders triamcino lone acetonide 0.5 % topical ointment 2024 025 AMARI [facility], [address] [place] [address], [address], [place], [address], 5 12:18:53 meclizine 25 mg tablet 2024 025 [email or web address] [facility], [address] [place] [address], [address], [place], [address], 5 11:53:30 triamcino lone acetonide 0.5 % topical ointment 2024 025 [email or web address] [facility], [address] [place] [address], [address], [place], [address], 16:45:04 Patient TargetsNo targets recorded. Patient Instructions Encounter Date Encounter Id Patient Instructions Last Modified By Organization Details Last Modified Time 04/25/2024 [id number] A healthy lifestyle: care instructions jnanney Not available 04/25/2024 17:17:49 07/09/2024 [id number] mammogram: about this test jnanney Not available 07/09/2024 16:45:04 A healthy lifestyle: care instructions jnanney Not available 07/09/2024 16:08:58 08/05/2024 [id number] A healthy lifestyle: care instructions jnanney Not available 08/05/2024 11:19:11 09/18/2024 [id number] learning about high blood pressure jnanney Not available 09/18/2024 12:18:13 Reason for Referral General Surgeon Referral for Abscess of right axilla Would like seen in [place] Referring Physician: Gilbert Jordan, Family Medicine, Encounter Date: 09/18/2024 Results Created Date Observation Date Name Description Value Unit Range Abnormal Flag Note LastModifiedBy Organization Detail LastModifiedTime 04/25/20 24 04/25/2024 drug scree n, urine Methamphetam ine Negati ve Not Available In-Office Order Internal Use Only DO Not Attach Compendium DO Not Attach Compendium, Do Not Delete/merge, [id number] 04/23/2024 16:43:30 04/25/20 24 04/25/2024 drug scree n, urine THC Positi ve Not Available In-Office Order Internal Use Only DO Not Attach Compendium DO Not Attach Compendium, Do Not Delete/merge, [id number] 04/23/2024 16:43:30 04/25/20 24 04/25/2024 drug scree n, urine Benzodiazepi ne (Bzo) Negati ve Not Available In-Office Order Internal Use Only DO Not Attach Compendium DO Not Attach Compendium, Do Not Delete/merge, [id number] 04/23/2024 16:43:30 04/25/20 24 04/25/2024 drug scree n, urine Cocaine (Cliff) Negati ve Not Available In-Office Order Internal Use Only DO Not Attach Compendium DO Not Attach Compendium, Do Not Delete/merge, [id number] 04/23/2024 16:43:30 04/25/20 24 04/25/2024 drug scree n, urine Methadone (Mtd) Negati ve Not Available In-Office Order Internal Use Only DO Not Attach Compendium DO Not Attach Compendium, Do Not Delete/merge, [id number] 04/23/2024 16:43:30 04/25/20 24 04/25/2024 drug scree n, urine Buprenorphin e (Bup) Negati ve Not Available In-Office Order Internal Use Only DO Not Attach Compendium DO Not Attach Compendium, Do Not Delete/merge, [id number] 04/23/2024 16:43:30 04/25/20 24 04/25/2024 drug scree n, urine Oxycodone (Oxy) Negati ve Not Available In-Office Order Internal Use Only DO Not Attach Compendium DO Not Attach Compendium, Do Not Delete/merge, [id number] 04/23/2024 16:43:30 04/25/20 24 04/25/2024 drug scree n, urine Barbiturates (Bar) Negati ve Not Available In-Office Order Internal Use Only DO Not Attach Compendium DO Not Attach Compendium, Do Not Delete/merge, [id number] 04/23/2024 16:43:30 04/25/20 24 04/25/2024 drug scree n, urine MDMA (Ecstacy) Negati ve Not Available In-Office Order Internal Use Only DO Not Attach Compendium DO Not Attach Compendium, Do Not Delete/merge, [id number] 04/23/2024 16:43:30 04/25/20 24 04/25/2024 drug scree n, urine Amphetamines (Amp) Negati ve Not Available In-Office Order Internal Use Only DO Not Attach Compendium DO Not Attach Compendium, Do Not Delete/merge, [id number] 04/23/2024 16:43:30 04/25/20 24 04/25/2024 drug scree n, urine Opiates (opi) Positi ve Not Available In-Office Order Internal Use Only DO Not Attach Compendium DO Not Attach Compendium, Do Not Delete/merge, [id number] 04/23/2024 16:43:30 04/25/20 24 04/25/2024 drug scree n, urine Phencyclidin e (Pcp) Negati ve Not Available In-Office Order Internal Use Only DO Not Attach Compendium DO Not Attach Compendium, Do Not Delete/merge, [id number] 04/23/2024 16:43:30 04/25/20 24 04/25/2024 drug scree n, urine Tricyclic Antidepressa nts Invali d Not Available In-Office Order Internal Use Only DO Not Attach Compendium DO Not Attach Compendium, Do Not Delete/merge, [id number] 04/23/2024 16:43:30 04/25/20 24 04/25/2024 drug scree n, urine Fentanyl Negati ve Not Available In-Office Order Internal Use Only DO Not Attach Compendium DO Not Attach Compendium, Do Not Delete/merge, [id number] 04/23/2024 16:43:30 06/21/19 25 06/21/2024 CT, head, w/o contr ast No observ [facility]ion [facility] [address] [place], [address], 06/21/2024 14:22:54 06/21/19 25 06/21/2024 XR, chest No observ [facility]ion [facility] ed[facility] [address] [place], [address], 06/21/2024 14:23:05 07/16/1907/16/2024 MAMMO , scree herbert, digit al, bilat eral No observ ation record ed. [facility] [address] [place], [address], 07/16/2024 10:45:21 07/16/1907/16/2024 XR, hip + pelvi s, bilat eral No observ ation [facility] ed. [facility] [address] [place], [address], 07/16/2024 11:33:58 08/30/19 25 08/28/2024 elect romyo gram + nerve condu ction study No observ ation record ed. [facility] (Radiology) [address] [place], [address], 08/29/2024 12:46:07 08/30/1908/28/2024 elect romyo gram + nerve condu ction study No observ ation record ed. [facility] (Radiology) [address] [place], [address], 08/29/2024 11:45:44 Result Notes None recorded. Problems Name Problem SNOMED Code Status Onset Date Resolution Date Notes Provider Name and Address Organization Details Recorded Time Insomnia 922533641 Active 2018 YURY Hyde, [place] - [place] 11:44:14 Anxiety 93494674 Active 2018 YURY [place], [place] [facility] 11:44:14 Hypertensive disorder 05133136 Active 2018 YURY [place], [place] - [facility] 11:44:14 Problem Notes None recorded. Procedures Surgical History Date Name Laterality Status Provider Name and Address Organization Details Recorded Time 07/16/19 Date of Last Mammogram completed Alise Seth [place] [facility] 08/05/2024 11:02:03 06/22/19 22 Date of Last Pap Smear completed Alise Seth [place] [facility] 10/01/2021 16:31:44 05/22/19 14 colonoscopy completed Alise Seth [place] [facility] 09/09/2020 11:52:04 03/09/19 99 Total hysterectomy completed Emilia Nichole [place] [facility] 06/09/2020 10:31:41 Back Surgery completed Emilie Todd [place] [facility] 11/29/2017 16:21:35 operation on hip joint completed Alise Seth [place] [facility] 09/09/2020 11:51:26 Carpal tunnel surgery completed Alise Seth [place] [facility] 09/09/2020 11:51:39 Imaging Results Imaging Date Name Status LastModified by Organization Details LastModified Time 06/21/2024 CT, head, w/o contrast completed [facility] [address] [place], [address], 06/21/2024 14:22:54 06/21/2024 XR, chest completed [facility] [address] [place], [address], 06/21/2024 14:23:05 07/16/2024 MAMMO, screening, digital, bilateral completed [facility] [address] [place], [address], 07/16/2024 10:45:21 07/16/2024 XR, hip + pelvis, bilateral completed [facility] [address] [place], [address], 07/16/2024 11:33:58 08/28/2024 electromyogram + nerve conduction study completed [facility] (Radiology) [address] [place], [address], 08/29/2024 12:46:07 08/28/2024 electromyogram + nerve conduction study completed [facility] (Radiology) [address] [place], [address], 08/29/2024 11:45:44 Procedure Notes None recorded. Medical Equipment None Reported. Allergies Allergen ID Allergen Name Allergen Category Reaction Reaction Severity Criticality Documentation Date Start Date Code Code System Note Provider Name and Address Organization Details Recorded Time 653617 tetracycl ine medicatio n rash Not available Not available 11/29/2017 46566 RxNorm YURY Kenney, [place] - [facility] 8 16:20:37 Medications Name Sig Start Date Stop Date Status Note LastModified by Organization Details LastModified Time cyclobenz aprine hydrochlo ride 10 mg tabs 02/09 completed Not Available Not Available Not Available cyclobenz aprine 10 mg tablet TAKE ONE TABLET BY MOUTH 3 TIMES A DAY NEEDED 2024 active Not Available Not Available Not Avai lable amoxicill in 500 mg capsule Take 1 [...] oral route as directed for 30 days. 09/18 completed Not Available Not Available Not Available baclofen 10 mg tablet TAKE 1 TABLET [...] Updated DateTime 4 167.64 cm 39.2 kg/m2 627394. 95 g 99 % 99 % 88 /min 126 mm[Hg] 81 mm[Hg] Neli Mcintyre [place] - [facility] 4 17:08:13 Date Recorded Body height Body mass index (BMI) Body weight Oxygen saturation Oxygen saturation in Arterial blood by Pulse oximetry Heart rate Systolic blood pressure Diastolic blood pressure Provider Name and Address Organization Details Last Updated DateTime 5 167.64 cm 37.9 kg/m2 824559. 21 g 98 % 98 % 86 /min 130 mm[Hg] 86 mm[Hg] Alise Seth [place] [facility] 5 15:59:58 Date Recorded Body height Body mass index (BMI) Body weight Oxygen saturation Oxygen saturation in Arterial blood by Pulse oximetry Heart rate Systolic blood pressure Diastolic blood pressure Provider Name and Address Organization Details Last Updated DateTime 5 167.64 cm 39.5 kg/m2 295669. 13 g 96 % 96 % 80 /min 138 mm[Hg] 80 mm[Hg] Alise Seth MA [facility] 5 11:03:30 Date Recorded Body height Body mass index (BMI) Body weight Oxygen saturation Oxygen saturation in Arterial blood by Pulse oximetry Heart rate Respiratory rate Systolic blood pressure Diastolic blood pressure Provider Name and Address Organization Details Last Updated DateTime 5 167.64 cm 39.9 kg/m2 322964. 32 g 98 % 98 % 74 /min 16 /min 132 mm[Hg] 78 mm[Hg] Francisca Lott MA [facility] 5 11:56:35 Social History Question Answer Notes LastModified by Organizat ion Details LastModified Time Tobacco Smoking Status Former Smoker Emilie Todd MA [facility], [facility] 11/29/2017 16:22:22 What Is Your Level Of [...] Date Of Your Most Recent Tobacco Screening? 09/18/2024 Information not available 09/18/2024 What Is Your Relationship Status? Single Information [...] Anxious, Or Unable To Sleep At Night)? [id number] Information not available 04/27/2023 Do You Use Any Illicit Or Recreational Drugs? Yes Marijuana [email or web address] Information not available 05/02/2022 Has Tobacco Cessation Counseling Been Provided? No Information not available 10/11/2018 On What Date Was Tobacco Cessation Counseling Provided? 09/18/2024 Information not available 09/18/2024 How Many Years Have You Smoked Tobacco? [...] Response Coronary Artery Disease N Other N Atrial Fibrillation N High Blood Pressure Y Kidney or Bladder Problems N Thyroid Problems N GI Problems N Depression Y COPD N Blood Clots N Skin Problems N Anemia N Heart Attack (IA) N Anxiety Disorder Y Diabetes N Muscle, [...] PF 4 completed Neli Mcintyre [place] null, [place] - [facility] 03/25/2024 14:25:18 Past Encounters Encounter ID Performer Location Encounter Start Date Encounter Closed Date Diagnosis/Indication Diagnosis SNOMED-CT Code Diagnosis ICD10 Code Diagnosis Note [id number] Denis Jin MD [facility] [address] [place] [address] 11/29/2017 15:44:29 11/29/2017 17:09:25 Osteoarthritis 702205939 M15.0 Lumbar radiculopathy 128 285661 M54.16 [id number] Denis Jin MD [facility] [address] [place] [address] 12/05/2017 15:30:57 12/05/2017 16:38:06 Sensorineural hearing loss of bilateral ears 901892814 H90.3 [id number] Denis Jin MD [facility] [address] [place] [address] 12/26/2017 16:40:32 12/26/2017 17:46:56 Degeneration of lumbar intervertebral disc 61052593 M51.36 Eruption 713224086 R21 [id number] Gilbert Jordan PA-C [facility] [address] [place] [address] 03/12/2018 11:30:10 03/12/2018 12:07:42 Administration of influenza vaccine 13984060 Z23 Generalize d anxiety disorder 50480335 F41.1 Spasm of back muscles 20 8531648 M62.829 [id number] Gilbert Jordan PA-C [facility] [address] [place] [address] 06/20/2018 10:43:25 06/20/2018 12:04:05 Pain of left hip joint 7986349905 89915 M25.552 Lumbar radiculopathy 128 032154 M54.16 Degenerati on of lumbar intervertebral disc 16341403 M51.36 Essential hypertension 07072020 I10 [id number] Gilbert Jordan PA-C [facility] [address] [place] [address] 07/04/2018 10:52:55 07/04/2018 11:47:14 Lumbar radiculopathy 077247533 M54.16 Essential hypertension 17802147 I10 [id number] Gilbert Jordan PA-C [facility] [address] [place] [address] 07/18/2018 10:45:54 07/18/2018 12:30:33 Essential hypertension 21925691 I10 [id number] Gilbert Jordan PA-C [facility] [address] [place] [address] 08/01/2018 10:43:14 08/01/2018 12:32:14 Essential hypertension 33025795 I10 Lumbar radiculopathy 128 199688 M54.16 [id number] Gilbert Jordan PA-C [facility] [address] [place] [address] 10/11/2018 14:04:49 10/11/2018 15:39:55 Essential hypertension 28532784 I10 Simple renal cyst 563635 09 N28.1 Primary insomnia 4701149 F51.01 [id number] Gilbert Jordan PA-C [facility] [address] [place] [address] 11/20/2018 09:54:30 11/20/2018 11:26:34 Pain of left hip joint 2173957347 73522 M25.552 Pain in left knee 464566 9017 34049 M25.553 [id number] Gilbert Jordan PA-C [facility] [address] [place] [address] 11/30/2018 11:32:44 11/30/2018 12:22:12 Pain of left hip joint 2652083099 62368 M25.942 [id number] Gilbert Jordan PA-C [facility] [address] [place] [address] 12/13/2018 11:29:07 12/13/2018 12:29:48 Arthritis of left hip 5552478210 028800 M13.288 [id number] Gilbert Jordan PA-C [facility] [address] [place] [address] 02/08/2019 11:53:39 02/11/2019 11:28:55 Anxiety 55748631 F41.1 Insomnia 333194222 G47.0 9 Arthritis of left hip 10 22277231 244249 M13.176 [id number] ANASTASIA [facility] [address] [place] [address] 09/23/2019 11:09:04 09/24/2019 10:39:03 Essential hypertension 46930771 I10 Generalize d anxiety disorder 48006236 F41.1 Osteoarthritis 544910906 M15.0 [id number] Gilbert Jordan PA-C [facility] [address] [place] [address] 10/01/2019 09:45:44 10/01/2019 15:30:44 Strain of right trapezius muscle 5264692115 8650351 S29.012A [id number] Gilbert Jordan PA-C [facility] [address] [place] [address] 10/31/2019 16:08:12 10/31/2019 17:06:38 Anxiety 53700502 F41.1 Cervical radiculopathy 85624140 M54.12 Localized, primary osteoarthritis 194574617 M15.0 Candidiasis of skin 4988 3006 B37.2 [id number] Gilbert Jordan PA-C [facility] [address] [place] [address] 11/28/2019 10:13:37 11/29/2019 06:28:46 Cervical radiculopathy 40808496 M54.12 Essential hypertension 11389018 I10 [id number] Gilbert Jordan PA-C [facility] [address] [place] [address] 02/10/2020 11:50:57 02/10/2020 12:40:36 Generalized anxiety disorder 14963545 F41.1 Chronic depression 96509 0009 F34.1 [id number] Gilbert Jordan PA-C [facility] [address] [place] [address] 02/18/2020 09:30:40 02/18/2020 19:32:43 [id number] Denis Jin MD [facility] [address] [place] [address] 02/24/2020 09:43:57 02/24/2020 13:31:00 Chronic depression 970465349 F34.1 [id number] Denis Jin MD [facility] [address] [place] [address] 06/09/2020 09:38:52 06/10/2020 09:02:56 Osteoporosis 85999229 M81.0 Screening for osteoporosis 902557238 Z13.100 [id number] Denis Jin MD [facility] [address] [place] [address] 09/09/2020 10:58:28 09/10/2020 14:37:01 Urinary tract infectious disease 19272704 N10 Essential hypertension 55699190 I10 Primary fi bromyalgia syndrome 63512934 M79.7 [id number] Denis Jin MD [facility] [address] [place] [address] 09/28/2020 14:41:01 10/05/2020 12:02:36 Anxiety 84242343 F41.1 Pain of mu ltiple joints 10662914 M25.59 Hypertensive disorder 38 537404 I10 Insomnia 069615479 G47.0 9 [id number] Denis Jin MD [facility] [address] [place] [address] 11/03/2020 09:29:11 11/04/2020 05:51:29 Gastroesophageal reflux disease without esophagitis 646650875 K21.9 [id number] Denis Jin MD [facility] [address] [place] [address] 11/30/2020 15:04:03 11/30/2020 16:04:31 Nausea 918512411 R11.0 Gastroesop hageal reflux disease 409753184 K21.9 Anxiety 53459772 F41.1 Hypertensive disorder 38 048873 I10 Esophageal dysphagia 408 35408 R13.19 Nausea and vomiting 1693 2000 R11.2 Essential hypertension 91948169 I10 Chronic depression 85843 0009 F34.1 [id number] Gilbert Jordan PA-C [facility] [address] [place] [address] 06/16/2021 10:45:30 06/16/2021 11:52:47 Hypertensive disorder 91864934 I10 Pain of ri ght hip joint 5351084171 27768 M25.551 Female str ess incontinence 70955056 N39.3 [id number] ANASTASIA [facility] [address] [place] [address] 10/01/2021 16:24:58 10/01/2021 17:00:18 Primary fibromyalgia syndrome 68182186 M79.7 Fatigue 11099526 R53.83 [id number] Gilbert Jordan PA-C [facility] [address] [place] [address] 05/02/2022 10:51:13 05/02/2022 11:58:01 Long-term drug therapy 824595312 Z79.899 Obesity 517286902 E66.9 Generalize d osteoarthritis 783173822 M15.0 Lumbar radiculopathy 128 784118 M54.16 Adult [facility] th examination 740957922 Z00.00 [id number] Gilbert Jordan PA-C [facility] [address] [place] [address] 08/02/2022 17:22:12 08/03/2022 12:07:11 Edema of lower extremity 653722310 R60.0 Idiopathic peripheral neuropathy 39859902 G60.8 Overweight 160619501 E66 .3 [id number] Gilbert Jordan PA-C [facility] [address] [place] [address] 08/16/2022 17:23:48 08/17/2022 12:42:32 Administration of SARS-CoV-2 mRNA vaccine 0384026171 Z23 [id number] Gilbert Jordan PA-C [facility] [address] [place] [address] 09/22/2022 11:21:17 09/23/2022 10:31:33 Varicose veins of lower extremity 84507946 I83.91 Overweight 399068001 E66 .3 [id number] Denis Jin MD [facility] [address] [place] [address] 01/02/2023 09:55:00 01/03/2023 11:17:41 Lumbar radiculopathy 990310647 M54.16 Osteoarthritis 517788682 M15.0 Cervical radiculopathy 83068000 M54.12 Insomnia 383318639 G47.0 9 Overweight 702902409 E66 .3 Essential hypertension 47185801 I10 [id number] Gilbert Jordan PA-C [facility] [address] [place] [address] 04/27/2023 11:22:22 05/04/2023 14:03:17 Long-term drug therapy 546887907 Z79.899 Bilateral cataracts 9572 2003 H25.011 Family his tory of coronary arteriosclerosis 513743019 Z82.49 Pre-surger y evaluation 128332134 Z01.818 Generalize d anxiety disorder 44686304 F41.1 [id number] Gilbert Jordan PA-C [facility] [address] [place] [address] 08/31/2023 15:31:07 09/07/2023 15:15:28 Mixed anxiety and depressive disorder 737182346 F41.8 [id number] Denis Jin MD [facility] [address] [place] [address] 09/27/2023 14:47:22 10/02/2023 14:56:38 Acute urinary tract infection 570360057 N39.0 [facility] 250128290 E66 .3 [id number] Denis Jin MD [facility] [address] [place] [address] 10/09/2023 16:38:48 10/17/2023 12:49:36 Acute urinary tract infection 122459470 N39.0 [id number] Denis Jin MD [facility] [address] [place] [address] 10/24/2023 17:54:28 10/31/2023 20:32:49 Urinary incontinence 756239538 N39.46 Bilateral foot congenital pes cavus 6692366476 2968167 Q66.71 [id number] Gilbert Jordan PA-C [facility] [address] [place] [address] 01/30/2024 17:32:05 01/31/2024 09:02:55 Pain in right foot 5600254194 66624 M79.671 Overweight 989803416 E66 .3 [id number] Denis Jin MD [facility] [address] [place] [address] 03/25/2024 14:09:13 03/26/2024 11:31:06 Administration of SARS-CoV-2 mRNA vaccine 0137039487 Z23 [id number] Denis Jin MD [facility] [address] [place] [address] 04/25/2024 16:47:37 04/30/2024 11:06:48 Long-term drug therapy 097247324 Z79.899 Lumbar radiculopathy 128 330044 M54.16 Mixed anxi ety and depressive disorder 487299465 F41.8 Overweight 551228121 E66 .3 [id number] Denis Jin MD [facility] [address] [place] [address] 07/09/2024 15:49:15 07/15/2024 09:50:36 Candidiasis of skin 56755250 B37.2 Screening mammography 24 317987 Z12.31 Bilateral tinnitus 14145 70161 102 H93.13 Overweight 029460178 E66 .3 Gastroesop hageal reflux disease without esophagitis 651624493 K21.9 [id number] Denis Jin MD [facility] [address] [place] [address] 08/05/2024 10:38:13 08/06/2024 10:32:14 Tarsal tunnel syndrome 35020827 G57.51 Pain in right foot 14962 42768 72726 M79.671 Overweight 150312969 E66 .3 [id number] Denis Jin MD [facility] [address] [place] [address] 09/18/2024 11:46:28 09/19/2024 13:01:31 Abscess of right axilla 2058320702 9959733 L02.411 Lumbar radiculopathy 128 566538 M54.16 Essential hypertension 93971154 I10 Obese class II 640249130 1 86779 E66.812 discussed weight loss Candidiasis of skin 4988 3006 B37.2 Health Concerns Section Related Observation LastModified by Organization Detai ls LastModified Time None Recorded Concern Status LastModified by Organization Details LastModified Time None Recorded Advance Directives Directive None Recorded Payers Encounter Date Sequence Insurance Name Policy Number Policy Ignacio Covered Member ID Ignacio Member ID Guarantor Name 03/25/2024 1 [employer] (MEDICARE REPLACEMENT/ ADVANTAGE - PPO) Janice Chavez [id number] Janice Chavez 04/25/2024 1 [employer] (MEDICARE REPLACEMENT/ ADVANTAGE - PPO) Janice Chavez [id number] Janice Chavez 07/09/2024 1 [employer] (MEDICARE REPLACEMENT/ ADVANTAGE - PPO) Janice Chavez [id number] Janice Chavez 08/05/2024 1 [employer] (MEDICARE REPLACEMENT/ ADVANTAGE - PPO) Janice Chavez [id number] Janice Chavez 09/18/2024 1 [employer] (MEDICARE REPLACEMENT/ ADVANTAGE - PPO) Janice Chavez [id number] Janice Chavez Notes Date Note Type Note Provider Name and Address Organization Details Recorded Time 04/25/2024 text/html 3 month vs control...trying to get some home excercize...and lose weight... Gilbert Jordan PA-C Attn: Accounting,[address] [place], [address], [facility] 04/25/2024 17:18:42 07/09/2024 text/html static sound in ears began 2 weeks ago...also some neck pain (actually has been present for a long time and worsened)..also omeprazole may not be working worse for past week Gilbert Jordan PA-C Attn: Accounting,[address] [place], [address], [facility] 07/09/2024 16:12:59 08/05/2024 text/html has a sharp pain in top of rt foot with a knot that swells .also has tingling in rt foot..worsens with movement.. Gilbert Jordan PA-C Attn: Accounting,[address] [place], [address], [facility] 08/05/2024 11:20:13 09/18/2024 text/html rt axillary sub cu mass..just appeared..did poke it and got some blood and pus out of it..blood pressure good..no complaints otherwise...3 month vs controls all is well.. Gilbert Jordan PA-C Attn: Accounting,[address] [place], [address], [facility] 09/18/2024 12:19:23 OBGyn Episode No OBEpisode recorded.
--- OUTSIDE RECORDS SUMMARY | 2024-09-23 07:56 | XMS_ITS | Continuity of Care Document ---
Author Organization [facility] Address [address] [place] [address] Care Team Providers Care Rack Pusher Name Role Phone Unavailable Unavailable Unavailable Allergies, [...] route every day 5 MG - Active [place] 10 mg-325 mg tablet take 1 tablet [...] Provider Providers Copied on Encounter [facility], [address], [place], [id number], [facility] [place] [facility] No Information 1-201 5 No Information OFFICE/OUTPA TIENT VISIT, NEW [facility], [address], [place], [id number], [facility] [place] [facility] low back pain (chief complaint) Myalgia and myositis, unspecifiedLumb osacral spondylosis without myelopathyBursi tis 8-201 4 No Information Referring Provider: Dipti Cobos, [address] , , [address] . tel:[phone] OFFICE/OUTPA TIENT VISIT, [facility], [address], [place], [id number], [facility] No Information [address] [place], [id number], [place]. tel:[phone] Referring Provider: Sheridan Bañuelos, [address] [place], [place] [address] [facility] [place], [address]. tel:[phone] Family History Family Member Type Diagnosis Age At Onset Problem (finding) Family history of hyper tension Problem (finding) Family history of Diabe catia mellitus Problem (finding) Family history of heart problems Payers Payer name Insurance type Covered republican ID Authoriza tion(s) Medicare Part B [id number] Social History Type Description Quantity Date Captured [...]
--- OUTSIDE RECORDS SUMMARY | 2024-09-23 07:56 | XMS_ITS | Clinical Summary ---
Author Organization [facility] Address [address] [place] [address] Care Team Providers Care Crm Specialist Name Role Phone Josue Jordan Primary Care Provider [phone] Jalen Gibbs MD Unavailable [phone] Allergies Active Allergy Reactions Criticality Noted Date [...] 05/12/2021 Assessment & Plan (05/12/2021 4:41 PM APPRENTICE CARPENTER): This is likely secondary to her previous neck surgery. Overall this has to be addressed with diet modifications and maintaining soft diet. No specific GI intervention will be of great help. Chronic nausea 12/16/2020 Gastroesophageal reflux disease 12/16/2020 Assessment & Plan (05/12/2021 4:41 PM APPRENTICE CARPENTER): Symptoms are much better at this time. [...] on file Legal Sex Female 7:14 AM APPRENTICE CARPENTER Gender Identity Female 11/29/2019 6:03 PM CDT Sexual Orientation Not on file Obstetrics History Last Filed Vital Signs Vital Sign Reading Time Taken Comments Blood Pressure 141/89 11/24/2022 1:57 PM CDT Pulse 79 10/19/2022 3:10 PM CDT Temperature 36.9 C (98.5 F) 04/07/2021 3:01 PM APPRENTICE CARPENTER Respiratory Rate 18 04/29/2021 11:32 AM APPRENTICE CARPENTER Oxygen Saturation 93% 10/19/2022 3:10 PM CDT [...] 5 season) 2024 10/13/2020, 09/15/2020 Influenza Vaccine (Season Ended) 2025 03/04/2021, 02/05/2020, 02/04/2020, Additional history exists Medical Devices Implanted Type Area Credentialing Analyst Device Identifier Shelf Expiration Date Model / Serial / Lot Abyrx Os-201 Hemasorb Os-Spa Spatula Wax 2gm Bone Sterile - [id number] Implanted:Qty: 1 on 07/21/2020 by Jalen Gibbs MD at [facility] N/A: Spine Cervical Abyrx 02/18/2021 OS-201 / / [id number] [employer] 700-025 I Factor Allograft Putty Syringe Graft 2.5cc Bone - [id number] Implanted:Qty: 1 on 07/21/2020 by Jalen Gibbs MD at [facility] N/A: Spine Cervical [employer] [id number] 03/21/2023 700-025 / / [id number] [place] Spine Cerv 0 Deg W/Hole 7mm Implanted:Qty: 1 on 07/21/2020 by Jalen Gibbs MD at [facility] N/A: Spine Cervical [employer] Spine [id number] 06/26/2024 / [id number] / Description:ID: [id number] Code: [id number] K2m [facility] [id number] Od4 Mm L12 Mm Self Tapping Spine Screw Bone Dark Blue - [id number] Implanted:Qty: 4 on 07/21/2020 by Jalen Gibbs MD at [facility] N/A: Spine Cervical [employer]ore Spine [id number] / / [employer] Spine [id number] 22mm 1 Level Constrain Spine Cervical Plate Bone - [id number] Implanted:Qty: 1 on 07/21/2020 by Jalen Gibbs MD at [facility] N/A: Spine Cervical [employer] Spine [id number] / / Insurance IDPA IDPA Advance Directives For more information, please contact: [phone] * Full Code (Latest Code Status on File) Date Activated Date Inactivated Comments 04/07/2021 1:26 PM 04/07/2021 9:05 PM * Full Code Date Activated Date Inactivated Comments 04/07/2021 1:26 PM 04/07/2021 1:26 PM Care Teams Crm Specialist Relationship Specialty Start Date End Date Josue Jordan PA [address] [place] [address] PCP - General 01/25/19 Jalen Gibbs MD [address] [facility] [address] [place] [address] Consulting Physician Neurosurgery 07/21/20
--- OUTSIDE RECORDS SUMMARY | 2024-09-23 07:56 | XMS_ITS | Referral Summary ---
Author Organization [facility] Address [address] [place] [address] Care Team Providers Care Clinical Technician Name Role Phone Josue Jordan Primary Care Provider [phone] Jalen Gibbs MD Unavailable [phone] Allergies Active Allergy Reactions Criticality Noted Date [...] 05/12/2021 Assessment & Plan (05/12/2021 4:41 PM TAX APPRAISER): This is likely secondary to her previous neck surgery. Overall this has to be addressed with diet modifications and maintaining soft diet. No specific GI intervention will be of great help. Chronic nausea 12/16/2020 Gastroesophageal reflux disease 12/16/2020 Assessment & Plan (05/12/2021 4:41 PM TAX APPRAISER): Symptoms are much better at this time. [...] on file Legal Sex Female 7:14 AM TAX APPRAISER Gender Identity Female 11/29/2019 6:03 PM CDT Sexual Orientation Not on file Last Filed Vital Signs Vital Sign Reading Time Taken Comments Blood Pressure 141/89 11/24/2022 1:57 PM CDT Pulse 79 10/19/2022 3:10 PM CDT Temperature 36.9 C (98.5 F) 04/07/2021 3:01 PM TAX APPRAISER Respiratory Rate 18 04/29/2021 11:32 AM TAX APPRAISER Oxygen Saturation 93% 10/19/2022 3:10 PM CDT Inhaled Oxygen Concentration - - Weight 103.4 kg (228 lb) 10/19/2022 3:10 PM CDT Height 167.6 cm (5' 6 ) 10/19/2022 3:10 PM CDT Body Mass Index 36.8 10/19/2022 3:10 PM CDT Plan of Treatment Not on file Medical Devices Implanted Type Area Roller Shop Supervisor Device Identifier Shelf Expiration Date Model / Serial / Lot Abyrx Os-201 Hemasorb Os-Spa [place] Wax 2gm Bone Sterile - [id number] Implanted:Qty: 1 on 07/21/2020 by Jalen Gibbs MD at [facility] N/A: Spine Cervical Abyrx 02/18/2021 OS-201 / / [id number] [employer] 700-025 I Factor Allograft Putty Syringe Graft 2.5cc Bone - [id number] Implanted:Qty: 1 on 07/21/2020 by Jalen Gibbs MD at [facility] N/A: Spine Cervical [employer] [id number] 03/21/2023 700-025 / / [id number] [place] Spine Cerv 0 Deg W/Hole 7mm Implanted:Qty: 1 on 07/21/2020 by Jalen Gibbs MD at [facility] N/A: Spine Cervical [place] Spine [id number] 06/26/2024 / [id number] / Description:ID: [id number] Code: [id number] [facility] [id number] Od4 Mm L12 Mm Self Tapping Spine Screw Bone Dark Blue - [id number] Implanted:Qty: 4 on 07/21/2020 by Jalen Gibbs MD at [facility] N/A: Spine Cervical [employer] Spine [id number] C / / [employer] Spine [id number] 22mm 1 Level Constrain Spine Cervical Plate Bone - [id number] Implanted:Qty: 1 on 07/21/2020 by Jalen Gibbs MD at [facility] N/A: Spine Cervical Lore Spine [id number] / / Insurance [facility] IDPA Advance Directives For more information, please contact: [phone] * Full Code (Latest Code Status on File) Date Activated Date Inactivated Comments 04/07/2021 1:26 PM 04/07/2021 9:05 PM * Full Code Date Activated Date Inactivated Comments 04/07/2021 1:26 PM 04/07/2021 1:26 PM Care Teams Clinical Technician Relationship Specialty Start Date End Date Josue Jordan PA [address] [place] [address] PCP - General 01/25/19 Jalen Gibbs MD [address] [facility] [address] [place] [address] Consulting Physician Neurosurgery 07/21/20
== END 2024-09-23 07:50 | disposition home or self-care (01) ==
LOC: CHSIMG 07:51
PROVIDERS: PCP Physician Assistant; Visit Provider Orthopaedic Surgery
DX: M25.571 Pain in right ankle and joints of right foot (principal); M25.572 Pain in left ankle and joints of left foot; M77.32 Calcaneal spur, left foot
CPT/HCPCS: 73610; 73630

== ENCOUNTER 2024-11-07 00:40 | Day surgery (SDC) | payer MEDICARE, SELFPAY ==
--- NOTE | 2024-10-30 11:51 | P.HP_ITS ---
H&P: HPI History of Present Illness Date/Time: 10/30/24 11:51 Chief Complaint: Bilateral foot pain and bone spur. Narrative: 63 year old female with complaints of bilateral foot and ankle pain for the past 9 months with NKI. Patient is experiencing pain R>L foot along the anterior aspect of the ankles and dorsal aspect of feet . She is taking cyclobenzaprine and Tylenol. Onset: 03/26/24 Location: Bilateral foot ankle Characteristics of symptom or complaint: swelling, sharp pain Relieving factors: none. She has tried activity modifications, nonweightbearing, shoe inserts and accommodative shoes, strapping and therapy exercises. She uses medication. She has had no improvement in her symptoms. Review of Systems Constitutional: Constitutional: Denies fever(s) Eyes: Eyes: Denies blurry vision ENT: Reports Normal hearing present Cardiovascular: Cardiovascular: Denies chest pain and Denies dyspnea Respiratory: Respiratory: Denies dyspnea and Denies wheezing Gastrointestinal: Gastrointestinal: Denies abdominal pain Genitourinary: Genitourinary: Denies urinary urgency Musculoskeletal: Musculoskeletal: Reports as per HPI and Denies numbness Integumentary/Breasts: Skin/Breast: Denies changing lesions and Denies sores Neurologic: Reports Normal hearing present, Denies behavioral changes, Denies confusion, Denies numbness and Denies convulsions Psychiatric: Psychiatric: Denies behavioral changes, Denies confusion and Denies hallucinations Endocrine: Endocrine: Denies heat intolerance Hematologic/Lymphatic: Hematologic/Lymphatic: Denies easy bleeding Allergic/Immunologic: Allergic/Immunologic: Denies wheezing PMFSH Past Medical History Medical History (Updated 10/30/24 @ 11:55 by Lion Armijo MD) Exostosis of both feet Peroneal neuritis Arthritis of foot, degenerative Screening mammogram for breast cancer Cataracts, bilateral Fibromyalgia Arthritis Depression Hypertension History of MRSA infection Degenerative joint disease of left hip Pain of left hip joint Surgical History Surgical History H/O: hysterectomy S/P total hip arthroplasty History of cervical spinal surgery History of kyphoplasty History of total left hip arthroplasty Family History Family History Other Asthma Depression Diabetes mellitus Family history of arthritis Heart disease Hypertension Kidney disorder Social History Social History Smoking packs per day: 0.5 Smoking cigarettes per day: 10.0 Years smoked: 30 Smoking pack-years: 15.00 Smoking status: Light tobacco smoker Tobacco type: cigarettes Second hand tobacco smoke exposure: Yes Additional smoking assessment comments: PT DENIES ALL FORMS OF TOBACCO USE Alcohol intake: current Drinks per week: 2 Alcohol use details: 3-4 per year Substance use: current Substance use type: marijuana Other substance usage details: DAILY Lack of Transportation: YES Lack of Food: Never True Current Housing: I Have Housing Concerned About Future Housing: No Difficulty Paying Gas/Electric Bills: No Difficulty Paying for Meds: No Currently Unemployed: No Education: Bachelor's Degree Difficulty w/ Childcare or Family Care: No Living arrangements: alone Additional occupation/education comments: disabled Gender identity (if verbalized by the patient): Female Spiritual care concerns: No Meds Home Medications and Allergies Home Medications ?Medication ?Instructions ?Recorded ?Confirmed ?Type amlodipine 5 mg tablet 5 mg PO [facility] 09/29/20 09/23/24 History atenolol 50 mg tablet 50 mg PO M 09/29/20 09/23/24 History bupropion HCl 300 mg 24 hr tablet, 300 mg PO [facility] 09/29/20 09/23/24 History extended release (Wellbutrin XL) calcium 600 mg (as 1 tablet PO M 06/21/21 09/23/24 History carbonate)-vitamin D3 5 mcg (200 unit) tablet gabapentin 600 mg tablet 600 mg PO TID 06/21/21 09/23/24 History oxybutynin chloride 10 mg 10 mg PO QAM 06/21/21 09/23/24 History tablet,extended release 24 hr aspirin 325 mg tablet,delayed 650 mg (2 x 325 mg) PO DAILY 28 07/08/21 09/23/24 Rx release days #56 tabs clonazepam 0.5 mg tablet 0.5 mg PO PRN PRN Anxiety 05/02/23 09/23/24 History omeprazole 20 mg capsule,delayed 20 mg PO DAILY 05/02/23 09/23/24 History release acetaminophen 300 mg-codeine 60 mg 1 tablet PO TID 09/18/23 09/23/24 History tablet zolpidem 10 mg tablet 10 mg PO HS 09/18/23 09/23/24 History nitrofurantoin macrocrystal 100 mg 100 mg PO Q12H #7 caps 09/20/23 09/23/24 Rx capsule pantoprazole 40 mg tablet,delayed 40 mg PO QAM #30 tabs 09/20/23 09/23/24 Rx release amoxicillin 500 mg capsule 500 mg PO ONCE #4 caps 01/02/24 09/23/24 Rx nirmatrelvir 300 mg (150 mg See Rx Instructions PO .COMPLEX 05/13/24 09/23/24 Rx x2)-ritonavir 100 mg tablet,dose #30 ea pack (Paxlovid) Allergies Allergy/AdvReac Type Severity Reaction Status Date / Time tetracycline Allergy Unknown Rash Verified 09/23/24 08:11 Exam Const: General: healthy appearing; No in distress or confusion Orientation/consciousness: oriented to person, oriented to place, oriented to time and No confusion HENMT: Head: normal to inspection, normocephalic and atraumatic Eyes: Conjunctivae: conjunctivae normal Sclera: sclerae normal Neck: Neck: supple and nontender Resp: Effort & Inspection: normal respiratory effort and no audible wheezes Cardio: Rate: regular rate Rhythm: regular rhythm Skin: General skin exam: no rashes or lesions noted Neuro: General: oriented to person, oriented to place, oriented to time and No confusion Extrem: Right upper extremity: normal to inspection Left upper extremity: normal to inspection Right lower extremity: normal capillary refill, ankle Details: normal to inspection and normal ROM (Dorsiflexion -5 , planter flexion 50, inversion 20, E version 10 ); no tenderness and no swelling and foot Details: abnormal to inspection Details: a deformity ( cavovarus foot deformity, clawtoe lesser toes, cock-up deformity hallux), tenderness (plantar heel, forefoot and toes), vascular exam (2+ dorsalis pedis pulse ), tendon exam and motor-sensory exam ( tibialis anterior 4/5, peroneal 4/5, posterior tib 5/5, gastroc 5/5) Details: two point discrimination abnormal Location: in all toes, light-touch abnormal Location: in all toes and pin-prick abnormal Location: in all toes; no crepitus; no edema Left lower extremity: hip/thigh Details: normal to inspection; no tenderness and no swelling, knee Details: normal to inspection; no tenderness and no swelling, ankle Details: tenderness (anterolateral ankle and sinus tarsi ), swelling (mild anterior and anterolateral ) and abnormal ROM Details: pain with active ROM Details: with dorsiflexion and with range as follows ( dorsiflexion -10 degrees, plantar flexion 40?, eversion 5?, inversion 15?) and foot Details: abnormal to inspection ( cavovarus foot deformity with lesser clawtoe deformity, hallux cock-up deformity) Details: a deformity ( lesser toe deformity fixed), tenderness (plantar heel, forefoot and toes ), no edema, edema (mild lateral hindfoot ), vascular exam (2+ dorsalis pedis pulse) and motor-sensory exam (strength 5/5 plantar flexion and inversion. Tibialis anterior and peroneal 4/5 .) two point discrimination abnormal, light-touch abnormal in all toes and pin- prick abnormal in all toes; no ecchymosis Psych: Affect: normal affect Assessment and Plan Assessment and plan (1) Arthritis of foot, degenerative: Qualifiers: Osteoarthritis type: primary Laterality: bilateral Qualified Code(s): M19.071 - Primary osteoarthritis, right ankle and foot; M19.072 - Primary osteoarthritis, left ankle and foot Code(s): M19.079 - Primary osteoarthritis, unspecified ankle and foot Status: Acute (2) Peroneal neuritis: Qualifiers: Laterality: unspecified laterality Qualified Code(s): G57.30 - Lesion of lateral popliteal nerve, unspecified lower limb Code(s): G57.30 - Lesion of lateral popliteal nerve, unspecified lower limb Status: Acute (3) Exostosis of both feet: Code(s): M89.8X7 - Other specified disorders of bone, ankle and foot Status: Acute Assessment and Plan: Chief complaint bilateral foot pain right greater than left. History, physical exam and radiographs reviewed with the patient. Radiographs show TMT arthritis of the 2nd and 3rd right greater than left. She has had previous bilateral hip replacements for arthritis. She has had cervical and lumbar spine fusions with chronic L5 radiculopathy of the right side noted on EMG nerve conduction study. Discussed the condition, nature, etiology and course of natural history with the patient. Treatment options including surgical and nonoperative treatment were reviewed. Risks and benefits of each as well as alternatives reviewed. The patient's questions were answered. Conservative treatment ice, compression and elevation. She has failed conservative treatment with activity modification, rest, topical anti-inflammatory gel, oral medications. Inserts which she is using. Discuss surgical options fusion with the risks and benefits involved as well as recovery time. Patient has declined a fusion type surgery. We discussed debridement of the joints with excision of osteophytes And release of peroneal nerve. discussed potential for recurrence of symptoms or incomplete recovery. Discussed nonoperative and operative treatment options with the patient. Risks and benefits of each as well as alternatives were reviewed. All of the patient's questions were answered. The risks of surgery reviewed including but not limited to: Neurovascular damage, wound complication, infection, blood clot, pulmonary embolus, stroke, myocardial infarction, and anesthetic risks up to and including . Continued pain and possible dysfunction were explained. Specific risks of the procedure including later recurrence of deformity. No guarantees were offered. If hardware used, discussed risk of failure/ breakage and possible need for removal. If complications occur, the patient understands the need for further treatment, possible further surgery. Patient verbalizes understanding and wishes to proceed. PLAN: Bilateral Foot excision of exostosis from the tarsal bone
[2024-11-01 11:37] VITALS: BMI 38.4
--- NOTE | 2024-11-01 11:53 | PC.NURSE ---
Report to the Outpatient Waiting Room, entrance under the green pavilion located off [facility], at time _1000am on date _11/07/24 . Planned Procedure Time: _12:00pm .? Time changes happen often and if your time is changed the preop area will call you the afternoon before. - You and your visitor will be asked to self-screen and do not enter if you have any COVID symptoms. Please call surgeon if you need to reschedule. - A mask is optional within the hospital at this time. Patients may have clear liquids (water, carbonated beverages, clear teas, apple juice) until 3 hours prior to surgery with a maximum of 20 ounces. - No food from midnight until time of surgery and no smoking, or chewing tobacco (or any form of nicotine). No chewing gum, candy or mints. (0900am) Take only the following medications with a SIP of water on the morning of surgery: __Amlodipine, Bupropion, Amlodipine, Gabapentin, Cyclobenzaprine, and Tylenol w Codeinee as needed DO NOT STOP ANY OF YOUR OTHER PRESCRIPTION MEDICATIONS PRIOR TO SURGERY EXCEPT THE FOLLOWING Hold all vitamins and supplements for 3 days per anesthesiologist. Date of last dose is 11/03/24 Medications to discontinue per physician NONE Date to take last dose NONE Please no make-up, nail puerto rican, hairspray, perfume, deodorant, or body powder the day of surgery.? No jewelry (including any body piercings) or valuables the day of surgery, leave them at home.? Please take a shower or bath the night before, or the morning of, surgery with an antibacterial soap.? Wear comfortable, loose fitting clothing.? - Jewelry must be removed prior to entering the operating room.? Rings and piercings that are not removed may be cut off. - The hospital will not accept responsibility for valuables.? - Please leave all valuables, including medications, at home the day of surgery. If you are going home after surgery, a licensed shuttle bus driver must drive you home.? - NO public transportation without another adult if you receive anesthesia. - We recommend that an adult stay with you for 24 hours following discharge. - We also recommend that you do not drive, make important decision, drink alcoholic beverages, or take any drugs that were not prescribed by your health care provider for at least 24 hours after your discharge time. Follow any additional instructions given to you from your surgeon. Telephone instructions given to _Patient and asked if any additional questions and then verbalized understanding. Patient advised to call surgeon office or pre surgery nurse liaison [phone] if any additional questions.
[2024-11-07] VITALS (8 sets, daily range): BP systolic 118–143; BP diastolic 68–83; PULSE 65–73; RESP 14–18; TEMP 36.5–36.8; O2SAT 94–96; BMI 39.2
--- OUTSIDE RECORDS SUMMARY | 2024-11-07 00:44 | XMS_ITS | Clinical Summary ---
Author Organization [facility] Address [address] [place] [address] Phone Care Team Providers Care Travel Accommodations Rater Name Role Phone Josue Jordan Gerald LOPEZ Primary Care Provider [phone] Itzel ESCALANTE MD, Noris Unavailable [phone] Allergies Active Allergy Reactions Criticality Noted Date [...] 5 MG Tablet 04/08/2021 Active nystatin (MYCOSTATIN) 262904 UNIT/GM Cream 07/15/2021 Active omeprazole (PriLOSEC) 20 [...] Team Description 08/28/2024 2:00 PM CDT EMG [facility] [address] [place] [address] Josue Jordan, PAC Tarsal tunnel syndrome, right lower limb Discharge Disposition: Discharged to home or Selfcare 08/27/2024 Travel from Last 3 Months Immunizations Immunization Administration [...] Weight - - Height 165.1 cm (5' 5) 2021 10:47 AM CDT Body Mass Index - - Plan of Treatment Health Maintenance Due Date Last Done Comments DEXA Bone Density 1960 Hepatitis C Virus (HCV) Screening 1960 Mammogram 1960 TdaP Immunization 1960 Pap Smear 12/28/1979 Cervical Cancer Screening (CCS) 1988 HPV/Cotest 1988 Cologuard 12/28/2003 Colonoscopy 12/28/2003 Colorectal Cancer Screening 12/28/2003 Immunochemical Fecal Occult Blood 12/28/2003 Pneumococcal Immunization (50+ years) (1 of 1 [...] on patient's age to complete this topic Human Papillomavirus (HPV) Immunization Aged Out No longer eligible based [...] right lower extremity. Clinical correlation is recommended. us Josue Jordan [facility] NEUROLOGY ORDERABLES V2 Final Result * EMG/NCV (08/28/2024 12:00 AM CDT) 08/28/2024 us Provider Scan NEUROLOGY ORDERABLES Final Resul t SCAN from Last 3 Months Insurance MEDICARE C [facility] [place] [address] Advance Directives Documents on File Type Date Recorded Patient Agent Based Modeler Expl anation Other Advance Directive 10/04/2021 10:12 AM PRD Care Teams Travel Accommodations Rater Relationship Specialty Start Date End Date Josue Jordan PAC [address] [place] [address] PCP - General Physician Wildlife Manager 07/05/21 Noris Robbins III, MD [address] [place] [address] Consulting Physician Urology 12/27/21
[2024-11-07] MEDS: ACETAMINOPHEN 500 MG TABLET 1000 MG PO (10:35)
[2024-11-07] MEDS: LACTATED RINGERS 1,000 ML 30 ML IV CONT ×2 (10:40→13:52)
--- NOTE | 2024-11-07 10:47 | WPDHPUPDATE1 ---
History and Physical Update Update Date/Time: 11/07/24 10:47 History and Physical has been reviewed, including an updated exam of the patient. There are NO changes in the patient's condition. Risks, benefits, and alternatives have been discussed and questions answered. Patient agrees to proceed with procedure.
[2024-11-07] MEDS: KETOROLAC 15 MG/ML VIAL (*BKC) IV PUSH (10:50)
--- NOTE | 2024-11-07 11:39 | P.PNAN_ITS ---
Anes - Initial Pre Proc Eval Procedure: Operation Date: 11/07/24 12:00 Proposed Procedures p Bilateral Peroneal Nerve Release, Excision Exostosis Bilateral Foot from Tarsal Bone - Lion Armijo MD Date/Time: 11/07/24 11:39 Surgeon: Lion Armijo MD Pre Op Diagnosis: Charles Peroneal Neuritis, Bone Spurs Patient Data Age: 63 Gender: F Height: 1.68 m Weight: 108 kg Allergies Allergy/AdvReac Type Severity Reaction Status Date / Time tetracycline Allergy Unknown Rash Verified 11/01/24 11:28 Home Medications ?Medication ?Instructions ?Recorded ?Confirmed ?Type amlodipine 5 mg tablet 5 mg PO QAM 09/29/20 11/01/24 History atenolol 50 mg tablet 50 mg PO QAM 09/29/20 11/01/24 History bupropion HCl 300 mg 24 hr tablet, 300 mg PO QAM 09/29/20 11/01/24 History extended release (Wellbutrin XL) gabapentin 600 mg tablet 600 mg PO TID 06/21/21 11/01/24 History omeprazole 20 mg capsule,delayed 20 mg PO DAILY 05/02/23 11/01/24 History release acetaminophen 300 mg-codeine 60 mg 1 tablet PO TID 09/18/23 11/01/24 History tablet zolpidem 10 mg tablet 10 mg PO HS 09/18/23 11/01/24 History amoxicillin 500 mg capsule 500 mg PO ONCE #4 caps 01/02/24 11/01/24 Rx cyclobenzaprine 10 mg tablet 10 mg PO Q8H PRN pain 11/01/24 11/01/24 History multivitamin (Daily Multi-Vitamin 1 tablet PO DAILY 11/01/24 11/01/24 History tablet) Patient hx anesthesia problems: none Family hx anesthesia problems: none Results Review: All pre-operative results and documents have been reviewed as part of the pre- operative evaluation. [facility] Past Medical History Medical History Exostosis of both feet Peroneal neuritis Arthritis of foot, degenerative Screening mammogram for breast cancer Cataracts, bilateral Fibromyalgia Arthritis Depression Hypertension History of MRSA infection Degenerative joint disease of left hip Pain of left hip joint Surgical History Surgical History H/O: hysterectomy S/P total hip arthroplasty History of cervical spinal surgery History of kyphoplasty History of total left hip arthroplasty Family History Family History Other Asthma Depression Diabetes mellitus Family history of arthritis Heart disease Hypertension Kidney disorder Social History Social History Smoking packs per day: 1 Smoking cigarettes per day: 20.0 Years smoked: 30 Smoking pack-years: 30.00 Smoking status: Former smoker Tobacco type: cigarettes Second hand tobacco smoke exposure: Yes Smoking end date: 05/22/04 Additional smoking assessment comments: PT DENIES ALL FORMS OF TOBACCO USE Alcohol intake: current Drinks per week: 2 Alcohol use details: 1 every 3 mos Substance use: current Substance use type: marijuana Other substance usage details: Smoke it daily and take gummies Lack of Transportation: YES Lack of Food: Never True Current Housing: I Have Housing Concerned About Future Housing: No Difficulty Paying Gas/Electric Bills: No Difficulty Paying for Meds: No Currently Unemployed: No Education: Bachelor's Degree Difficulty w/ Childcare or Family Care: No Living arrangements: alone Additional occupation/education comments: disabled Gender identity (if verbalized by the patient): Female Spiritual care concerns: No Anes - Eval Final PreProcedure Day of Procedure 11/07/24 11:39 Patient weight: obese Heart: regular rate and rhythm Lungs: decreased breath sounds Airway: Mallampati scale class II Neurological: alert and oriented Last oral intake: >/= 8 hours ASA classification: III Emergent: no Anesthetic plan: proceed Anesthesia type and monitoring: general LMA and standard monitoring Results Review: All pre-operative results and documents have been reviewed as part of the pre- operative evaluation. Informed Consent: The patient's anesthetic plan and its attendant risks and benefits were discussed with the patient/family/POA. Questions were solicited and answers provided to the satisfaction of the patient/family/POA.
[2024-11-07] MEDS: ceFAZolin 2 GM/D5W 50 ML 2 GM/50 ML BAG IVPB (12:23)
--- NOTE | 2024-11-07 12:57 | S_PTH ---
PATIENT: Janice Chavez LOC: [facility] U#:[id number] AGE/SX: 63/F ROOM: RE11/07/[address]: Lion Armijo MD : 1960 BED: DIS: 11/07/2024 SPEC #: [id number] RECD: 11/07/24 14:06 STATUS: JOSE REQ #: [id number] JACKIE: 11/07/24 12:[address]: Lion Armijo DEPT: [facility] Surgical RECD BY: Bernadette Paniagua ENTERED: 11/07/24 14:06 SP TYPE: Surgical OTHR DR: Josue Jordan, PA Tissues: A - Nerve Bx B - Nerve Bx Procedures: Gross and Microscopic Level 2
[2024-11-07] MEDS: BUPivacaine HCL 0.5% 10 ML AMP 20 ML INFILTRATE (13:01)
--- NOTE | 2024-11-07 13:45 | P.OP_ITS ---
Procedure Note - Detailed Date of Procedure 11/07/24 Pre-op Diagnosis Charles Peroneal Neuritis, Bone Spurs Post-op Diagnosis Same Procedure Performed Excision exostosis dorsum tarsal bone bilaterally, excision deep peroneal nerve bilateral. Surgeon Lion Armijo MD Document Management Analyst 1st recruitment assistant Anesthesia General Indications 63-year-old with significant midfoot arthritis and pain both right and left foot. She has failed conservative treatment with inserts and arch supports, therapy and injections. Presents now for operative treatment with excision of the exostoses and removal of the deep peroneal nerve for pain relief. Description of Procedure Patient identified in the preoperative holding. Informed consent given. Operative extremity marked. Patient received intravenous antibiotics. Patient brought to the operating room where underwent general anesthetic by anesthesia team. Positioned supine on operating room table. Time-out performed confirming the patient, site of the surgery and the plan. Both right and left foot prepped and draped usual sterile surgical fashion using ChloraPrep skin solution. We addressed the right foot 1st. The foot and ankle were exsanguinated and calf tourniquet inflated to 250 mmHg. Dorsal longitudinal incision made over the 2nd tarsometatarsal joint with a 15 blade knife. Hemostasis controlled electrocautery. Neurovascular elements identified and protected. Dissection carried down to the dorsal capsule which was incised in line with the retractors were placed and an osteotome was used to remove the dorsal osteophyte from the base of the metatarsal of the 2nd and 3rd and distal cuneiform. Rongeur was used to smooth the area. Bone wax was then used to seal the dorsal bone. Wound thoroughly irrigated and the subcutaneous tissue repaired with 3-0 Monocryl interrupted suture and skin repaired with 4-0 nylon running suture. Sterile dressing applied and tourniquet released. The left foot was then addressed in similar fashion. Dorsal longitudinal incision made over the 2nd tarsometatarsal joint with a 15 blade knife. Hemostasis controlled electrocautery. Neurovascular elements identified and protected. Dissection carried down to the dorsal capsule which was incised in line with the retractors were placed and an osteotome was used to remove the dorsal osteophyte from the base of the metatarsal of the 2nd and 3rd and distal cuneiform. Rongeur was used to smooth the area. Bone wax was then used to seal the dorsal bone. Wound thoroughly irrigated and the subcutaneous tissue repaired with 3-0 Monocryl interrupted suture and skin repaired with 4-0 nylon running suture. Sterile dressing applied and tourniquet released. We then addressed the right peroneal nerve. Longitudinal incision made 5 cm proximal to the ankle lateral to the tibial crest. Hemostasis controlled electrocautery. The fascia was incised in line with skin incision and the extensor hallucis tendon identified and retracted. This allowed exposure of the neurovascular bundle. The peroneal nerve was identified and a 2 cm section was removed and passed off. Proximal portion of the nerve was sewn into the musculature with 3-0 Monocryl interrupted suture. Wound irrigated and the reti naculum repaired with 3-0 Monocryl interrupted suture and skin repaired with 4-0 nylon running suture. The left peroneal nerve was then addressed in similar fashion. Longitudinal incision made 5 cm proximal to the ankle lateral to the tibial crest. Hemostasis controlled electrocautery. The fascia was incised in line with skin incision and the extensor hallucis tendon identified and retracted. This allowed exposure of the neurovascular bundle. The peroneal nerve was identified and a 2 cm section was removed and passed off. Proximal portion of the nerve was sewn into the musculature with 3-0 Monocryl interrupted suture. Wound irrigated and the retinaculum repaired with 3-0 Monocryl interrupted suture and skin repaired with 4-0 nylon running suture. Sterile dressings applied. The patient was then woken from anesthesia, extubated and taken to the recovery room in stable condition. All sponge, needle, instrument counts were correct at the end of the case. Estimated Blood Loss 20 Tourniquet Time Total Tourniquet Time: 26 rt, 20 Drains No Packing No Pathology None sent Complications None Condition Stable Disposition PACU [facility] Billing Surgery - Charge Forward: Surgery Billing ([id number] LT, [id number] RT, [id number] LT, [id number] RT)
[2024-11-07] MEDS: fentaNYL CITRATE INJ (*CRX) 100 MCG/2 ML VIAL 25 MCG IV PUSH (14:08)
== END 2024-11-07 15:34 | disposition home or self-care (01) ==
PROVIDERS: PCP Physician Assistant; Visit Provider Orthopaedic Surgery
PROC: (CPT 27650; principal; 2024-11-07 12:00)
DX: M19.072 Primary osteoarthritis, left ankle and foot (principal); M19.071 Primary osteoarthritis, right ankle and foot; G57.30 Lesion of lateral popliteal nerve, unspecified lower limb; M89.8X7 Other specified disorders of bone, ankle and foot; Z87.891 Personal history of nicotine dependence; F12.90 Cannabis use, unspecified, uncomplicated; E66.9 Obesity, unspecified; Z68.39 Body mass index [BMI] 39.0-39.9, adult
CPT/HCPCS: 28122; 64772; 88300; 88302; A9270; J0690; J1100; J1885; J2003; J2250; J2405; J2704; J3010; J7120

== ENCOUNTER 2024-11-18 08:07 | Outpatient (CLI) | payer MEDICARE, SELFPAY ==
--- NOTE | ~2024-11-18 | XR_ITS ---
Right ankle Technique: AP, oblique, and lateral views were obtained. Clinical History: Bruising Findings: No acute fracture or dislocation is seen. Osseous alignment is anatomic. Ankle mortise and other visualized joint spaces are preserved. Soft tissues are otherwise unremarkable. Impression: Unremarkable right ankle. Reviewed, dictated and finalized at location . Impression: Unremarkable right ankle.
--- NOTE | ~2024-11-18 | XR_ITS ---
Left ankle Technique: AP, oblique, and lateral views were obtained. Clinical History: Infection Findings: No acute fracture or dislocation is seen. Osseous alignment is anatomic. Ankle mortise and other visualized joint spaces are preserved. Soft tissues are otherwise unremarkable. Impression: Unremarkable left ankle. Reviewed, dictated and finalized at location . Impression: Unremarkable left ankle.
== END 2024-11-18 08:08 | disposition home or self-care (01) ==
PROVIDERS: PCP Physician Assistant; Visit Provider Orthopaedic Surgery
DX: Z47.89 Encounter for other orthopedic aftercare (principal)
CPT/HCPCS: 73610

== ENCOUNTER 2025-03-29 10:00 | Outpatient (CLI) | payer MEDICARE, SELFPAY ==
--- NOTE | ~2025-03-29 | MR_ITS ---
EXAMINATION: MR lumbar spine wo con DATE: 03/29/2025 12:10 INDICATION: Lumbosacral spondylosis with radiculopathy. TECHNIQUE: Magnetic resonance imaging (MRI) of the lumbar spine was performed without intravenous contrast. Sequences included sagittal T2-weighted FSE, sagittal T2-weighted FS FSE, sagittal T1-weighted FSE, and axial T2-weighted FSE. COMPARISON: Lumbar spine MRI 03/11/2020 FINDINGS: There is 3 mm retrolisthesis of L1 on L2 and 4 mm retrolisthesis of L2 on L3. There is a compression fracture of T12 with 2/5 loss of height centrally with fracture lines at the anterior inferior endplate with edema-like marrow signal intensity. There is a hemangioma in T12 vertebral body. There is mild chronic anterior wedging of L1 vertebral body. There is severely decreased disc height at L1-L2 and L2-L3. There are changes of anterior and posterior fusion procedures from L4 to S1 with interbody devices and pedicle screws. The distal spinal cord signal intensity is normal. The conus medullaris is at L1. The following disc levels are specifically discussed: L1-L2: The disc is bulging. There is moderate bilateral facet joint osteoarthritis. There is mild bilateral neural foraminal stenosis. There is mild central canal stenosis. L2-L3: The disc is bulging. There is severe right and moderate left facet joint osteoarthritis. There is severe bilateral neural foraminal stenosis. There is mild central canal stenosis. L3-L4: The disc is bulging and has an annular fissure. There is severe bilateral facet joint osteoarthritis. There is mild bilateral neural foraminal stenosis. There is no central canal stenosis. L4-L5: There is mild bilateral facet joint hypertrophy. There is mild right neural foraminal stenosis. There is no central canal stenosis. There is posterior decompression. L5-S1: There is mild bilateral facet joint hypertrophy. There is mild bilateral neural foraminal stenosis. There is no central canal stenosis. There is posterior decompression. IMPRESSION: 1. T12 compression fracture, likely acute/subacute on chronic. 2. Severe lumbar spondylosis, mildly worsened from 03/11/2020. 3. Anterior and posterior fusion procedures from L4 to S1. Reviewed, dictated and finalized at location E. R [employer]INT [employer]
--- OUTSIDE RECORDS SUMMARY | 2025-03-29 10:06 | XMS_ITS | Clinical Summary ---
Author Organization [facility] Address [address] [place] [address] Phone Care Team Providers Care Patrol Supervisor Name Role Phone Josue Jordan Gerald LOPEZ Primary Care Provider [phone] Itzel ESCALANTE MD, Noris Unavailable Allergies Active Allergy Reactions Criticality Noted [...] 5 MG Tablet 04/08/2021 Active nystatin (MYCOSTATIN) 780217 UNIT/GM Cream 07/15/2021 Active omeprazole (PriLOSEC) 20 [...] Years Used Date Smoking Tobacco: Former Cigarettes 0 Q uit: 2011 Smokeless Tobacco: Never Tobacco [...] Screening 1960 Mammogram 1960 TdaP Immunization 1960 Cologuard 12/28/2003 Colonoscopy 12/28/2003 Colorectal Cancer Screening 12/28/2003 Immunochemical Fecal Occult Blood 12/28/2003 Pneumococcal Immunization (50+ years) (1 of 1 - PCV) 2008 Zoster Immunization (1 of 2) 2008 Medicare Initial AWV [id number] 06/22/2012 Influenza Immunization (#1) 2025 11/0 08/2023, 02/04/2022, 03/04/2021, Additional history exists SARS-COV-2 Immunization ( - 2024- season) 2025 03/25/2024, 08/16/2022, 04/14/2021, Additional history exists Respiratory [...] to complete this topic Insurance MEDICARE C [employer] Advance Directives Documents on File Type Date Recorded Patient Manager Policy Expl anation Other Advance Directive 10/04/2021 10:12 AM PRD Care Teams Patrol Supervisor Relationship Specialty Start Date End Date Josue Jordan PAC [address] [place] [address] PCP - General Physician Machine Folder 07/05/21 Noris Robbins III, MD [address] [place] [address] Consulting Physician Urology 12/27/21
--- OUTSIDE RECORDS SUMMARY | 2025-03-29 10:06 | XMS_ITS | Data Portability ---
Author Organization [facility] Address [address] [place] [address] Care Team Providers Care International Marketing Specialist Name Role Phone GILBERT JORDAN Primary Care Provider [phone] Assessment No assessment recorded. Plan of Treatment Reminders Order Date Submit Date Provider Last Modified By Organization Details Last Modified Time Details Appointments None recorded. Lab urinalysis , dipstick 2024 025 kristine In-Office Order, Internal Use Only DO Not Attach Compendium DO Not Attach Compendium, Do Not Delete/merge, [id number] 15:44:56 Referral general surgeon referral - Would like seen in [facility] 2024 025 [facility], [address] [place], [address], 13:28:47 Procedures None recorded. Surgeries None recorded. Imaging MRI, lumbar spine, w/o contrast 2024 025 [facility], [address] [place], [address], 09:25:44 electromyo gram + nerve conduction study 2024 025 AMARI [facility] Scheduling, [address] [place], [address], 09:32:42 Medication Orders gabapentin 800 mg tablet 2024 025 AMARI [facility], [address] [place] [address], [address], [place], [address], 15:06:51 sulfametho xazole 800 mg-trimeth oprim 160 mg tablet 2024 025 AMARI [facility], [address] [place] [address], [address], [place], [address], 05:02:23 triamcinol one acetonide 0.5 % topical ointment 2024 025 AMARI [facility], [address] [place] [address], [address], [place], [address], 12:18:53 Patient TargetsNo targets recorded. Patient Instructions Encounter Date Encounter Id Patient Instructions Last Modified By Organization Details Last Modified Time 08/05/2024 [id number] A healthy lifestyle: care instructions jnanney Not available 08/05/2024 11:19:11 09/18/2024 [id number] learning about high blood pressure jnanney Not available 09/18/2024 12:18:13 12/04/2024 [id number] A healthy lifestyle: care instructions jnanney Not available 12/04/2024 12:21:07 learning about high blood pressure jnanney Not available 12/04/2024 12:21:07 01/27/2025 [id number] A healthy lifestyle: care instructions jnanney Not available 01/27/2025 15:44:56 Reason for Referral General Surgeon Referral for Abscess of right axilla Would like seen in [place] Referring Physician: Gilbert Jordan, Family Medicine, Encounter Date: 09/18/2024 Results Created Date Observation Date Name Description Value Unit Range Abnormal Flag Note LastModifiedBy Organization Detail LastModifiedTime 01/28/2001/27/2025 urina lysis , dipst ick Leukocytes Trace Not Available In-Offi ce Order Internal Use Only DO Not Attach Compendium DO Not Attach Compendium, Do Not Delete/merge, [id number] 01/27/2025 15:13:35 01/28/20 25 01/27/2025 urina lysis , dipst ick Nitrite negati ve Not Available In-Office Order Internal Use Only DO Not Attach Compendium DO Not Attach Compendium, Do Not Delete/merge, [id number] 01/27/2025 15:13:35 01/28/20 25 01/27/2025 urina lysis , dipst ick Urobilinogen .2 Not Available In-Of fice Order Internal Use Only DO Not Attach Compendium DO Not Attach Compendium, Do Not Delete/merge, [facility] 01/27/2025 15:13:35 01/28/20 25 01/27/2025 urina lysis , dipst ick Protein Negati ve Not Available In-Office Order Internal Use Only DO Not Attach Compendium DO Not Attach Compendium, Do Not Delete/merge, [facility] 01/27/2025 15:13:35 01/28/2001/27/2025 urina lysis , dipst ick pH 6.0 Not Available In-Office Order Internal Use Only DO Not Attach Compendium DO Not Attach Compendium, Do Not Delete/merge, [facility] 01/27/2025 15:13:35 01/28/2001/27/2025 urina lysis , dipst ick Blood Negati ve Not Available In-Office Order Internal Use Only DO Not Attach Compendium DO Not Attach Compendium, Do Not Delete/merge, [facility] 01/27/2025 15:13:35 01/28/2001/27/2025 urina lysis , dipst ick Specific [place] 1.010 Not Available In-Off ice Order Internal Use Only DO Not Attach Compendium DO Not Attach Compendium, Do Not Delete/merge, [facility] 01/27/2025 15:13:35 01/28/20 25 01/27/2025 urina lysis , dipst ick Ketone Negati ve Not Available In-Office Order Internal Use Only DO Not Attach Compendium DO Not Attach Compendium, Do Not Delete/merge, [facility] 01/27/2025 15:13:35 01/28/20 25 01/27/2025 urina lysis , dipst ick Bilirubin Negati ve Not Available In-Office Order Internal Use Only DO Not Attach Compendium DO Not Attach Compendium, Do Not Delete/merge, 01/27/2025 15:13:35 01/28/2001/27/2025 urina lysis , dipst ick Glucose Negati ve Not Available In-Office Order Internal Use Only DO Not Attach Compendium DO Not Attach Compendium, Do Not Delete/merge, 01/27/2025 15:13:35 01/28/2001/27/2025 urina lysis , dipst ick Appearance Clear Not Available In-Offi ce Order Internal Use Only DO Not Attach Compendium DO Not Attach Compendium, Do Not Delete/merge, 01/27/2025 15:13:35 01/28/2001/27/2025 urina lysis , dipst ick Color Yellow Not Available In-Office Order Internal Use Only DO Not Attach Compendium DO Not Attach Compendium, Do Not Delete/merge, [id number] 01/27/2025 15:13:35 07/16/19 25 07/16/2024 MAMMO , scree herbert, digit al, bilat eral No observ ation record ed. [facility] [address] [place], [address], 07/16/2024 10:45:21 07/16/19 25 07/16/2024 XR, hip + pelvi s, bilat eral No observ [email or web address] [address] [place], [address], 07/16/2024 11:33:58 08/30/19 25 08/28/2024 elect romyo gram + nerve condu ction study No observ ation record ed. [facility] (Radiology) [address] [place], [address], 08/29/2024 12:46:07 08/30/19 25 08/28/2024 elect romyo gram + nerve condu ction study No observ ation record ed. [facility] (Radiology) [address] [place], [address], 08/29/2024 11:45:44 09/24/19 25 09/23/2024 XR, ankle No observ ation record ed. [facility] [address] [place], [address], 09/23/2024 10:41:30 09/24/19 25 09/23/2024 XR, ankle No observ ation record ed. [facility] [address] [place], [address], 09/23/2024 10:41:54 09/24/19 25 09/23/2024 XR, foot, 2 view No observ ation record ed. [facility] [address] [place], [address], 09/23/2024 10:41:01 09/24/19 25 09/23/2024 XR, foot, 2 view No observ ation record ed. [facility] [address] [place], [address], 09/23/2024 10:41:10 11/19/19 25 11/18/2024 XR, ankle No observ ation record ed. [facility] [address] [place], [address], 11/18/2024 11:18:39 11/19/19 25 11/18/2024 XR, ankle No observ ation record ed. [facility] [address] [place], [address], 11/18/2024 11:18:52 Result Notes None recorded. Problems Name Problem SNOMED Code Status Onset Date Resolution Date Notes Provider Name and Address Organization Details Recorded Time Insomnia 830771390 Active 2018 Alise Seth MA lucas, [facility] 11:44:14 Anxiety 98663185 Active 2018 YURY Hyde, [facility] 11:44:14 Hypertensive disorder 20957018 Active 2018 YURY Hyde, [facility] 11:44:14 Problem Notes None recorded. Procedures Surgical History Date Name Laterality Status Provider Name and Address Organization Details Recorded Time 02/20/20 25 excision of osteophyte completed CRISTINA Iqbal [place] - [facility] 03/13/2025 14:47:49 07/16/19 25 Date of Last Mammogram completed Alise Seth MA AR Michelle [facility] 08/05/2024 11:02:03 06/22/19 22 Date of Last Pap Smear completed Alise Seth MA [facility] 10/01/2021 16:31:44 05/22/19 14 colonoscopy completed Alise Seth MA [facility] 09/09/2020 11:52:04 03/09/19 99 Total hysterectomy completed Emilia Nichole MA [facility] 06/09/2020 10:31:41 Back Surgery completed Emilie Todd MA [facility] 11/29/2017 16:21:35 operation on hip joint completed Alise Seth MA [facility] 09/09/2020 11:51:26 Carpal tunnel surgery completed Alise Seth MA [facility] 09/09/2020 11:51:39 Imaging Results None recorded. Procedure Notes None recorded. Medical Equipment None Reported. Allergies Allergen ID Allergen Name Allergen Category Reaction Reaction Severity Criticality Documentation Date Start Date Code Code System Note Provider Name and Address Organization Details Recorded Time [id number] tetracycl ine medicatio n rash Not available Not available 11/29/2017 16118 RxNorm YURY Kenney [facility] 8 16:20:37 Medications Name Sig Start Date [...] TAKE 1 TABLET BY MOUTH EVERY DAY 12/04 completed Not Available Not Available Not Available tizanidin e 4 mg tablet 06/16 completed Not Available Not Available Not Available hydrocodo ne 5 mg-acetam inophen 325 mg tablet 11/30 completed Not Available Not Available Not Available ondansetr on HCl 8 mg tablet TAKE ONE TABLET BY MOUTH TWICE A DAY FOR 5 DAYS active Not Available Not Available No t Available fluconazo le 200 mg tablet Take 1 [...] hours by oral route for 10 days. 02/13 completed Not Available Not Available Not Available [...] day by oral route for 30 days. 2024 active Not Available Not Available Not Avai lable trazodone 100 mg tablet TAKE TWO TABLETS [...] 1 CAPSULE BY MOUTH TWICE A DAY 2024 active Not Available Not Available Not Avai lable diclofena c sodium 75 mg tablet,de layed release TAKE 1 TABLET BY MOUTH 2 TIMES A DAY WITH FOOD. 02/09 completed Not Available Not Available Not Available Replens vaginal gel Insert 1 g by vaginal route as directed . 12/04 completed Not Available Not Available Not Available acetamino phen 300 mg-codein e 60 mg [...] Not Available Not Available Not Avai lable metoclopr amide 10 mg tablet 11/29 completed [...] mg 24 hr tablet, extended release TAKE ONE TABLET BY MOUTH DAILY DIRECTED FOR 90 DAYS 2024 active Not Available Not Available Not Avai lable nitrofura ntoin monohydra te/macroc rystals 100 mg [...] completed Not Available Not Available Not Available Probiotic active Not Available Not Khloe ilable Not Available Eye Vitamin and Minerals active Not Available Not Available Not Available Vraylar [...] blood by Pulse oximetry Heart rate Systolic And Diastolic Provider Name and Address Organization Details Last Updated DateTime 5 167.64 cm 39.5 kg/m2 864333. 13 g 96 % 96 % 80 /min 138/80 mm[Hg] Alise Seth MA [facility] 5 11:03:30 Date Recorded Body height Body mass index (BMI) Body weight Oxygen saturation Oxygen saturation in Arterial blood by Pulse oximetry Heart rate Respiratory rate Systolic And Diastolic Provider Name and Address Organization Details Last Updated DateTime 5 167.64 cm 39.9 kg/m2 880626. 32 g 98 % 98 % 74 /min 16 /min 132/78 mm[Hg] Francisca Lott MA [facility] 5 11:56:35 Date Recorded Body height Body mass index (BMI) Body weight Oxygen saturation Oxygen saturation in Arterial blood by Pulse oximetry Heart rate Systolic And Diastolic Provider Name and Address Organization Details Last Updated DateTime 5 167.64 cm 39.4 kg/m2 684799. 54 g 96 % 96 % 81 /min 114/78 mm[Hg] Francisca Lott MA [facility] 5 12:09:35 Date Recorded Body height Body mass index (BMI) Body weight Oxygen saturation Oxygen saturation in Arterial blood by Pulse oximetry Heart rate Systolic And Diastolic Provider Name and Address Organization Details Last Updated DateTime 5 167.64 cm 39.2 kg/m2 725071. 95 g 99 % 99 % 70 /min 108/72 mm[Hg] Alise Seth MA [facility] 5 15:13:06 Date Recorded Body height Body mass index (BMI) Body weight Oxygen saturation Oxygen saturation in Arterial blood by Pulse oximetry Heart rate Systolic And Diastolic Provider Name and Address Organization Details Last Updated DateTime 5 167.64 cm 38.9 kg/m2 750760. 76 g 99 % 99 % 63 /min 122/76 mm[Hg] Jillian CRISTINA Bentley [facility] 5 14:49:39 Social History Question Answer Notes LastModified by Organizat ion Details LastModified Time Tobacco Smoking Status Former Smoker YURY Kenney, [facility] 11/29/2017 16:22:22 Are You Blind Or Do You Have Difficulty Seeing? No Information n ot available 11/03/2020 What Is Your Level Of Caffeine Consumption? Moderate Information not available 04/27/2023 How Much Tobacco Do You Chew? None Information not available 02/10/2020 In The 14 Days Before Symptom Onset, Have You Had Close Contact With A Laboratory-confirm ed COVID-19 While That Case Was Ill? No Information n ot available 09/09/2020 In The 14 Days Before Symptom Onset, Have You Had Close Contact With A Person Who Is Under Investigation For COVID-19 While That Person Was Ill? No Information not available 09/09/2020 Have You Been To An Area Known To Be High Risk For COVID-19? No Information not available 09/09/2020 Are You Deaf Or Do You Have Serious Difficulty Hearing? No Information not available 11/03/2020 What Type Of Diet Are You Following? REGULAR Information n ot available 10/11/2018 Which Illicit Or Recreational Drugs Have You Used? Marijuana Information not available 02/10/2020 Are There Any Guns Present In Your Home? No Information not available 11/03/2020 Live Alone Or With Others? With Others Information not available 02/10/2020 What Was The Date Of Your Most Recent Tobacco Screening? 03/13/2025 Information not available 03/13/2025 What Is Your Relationship Status? Single Information not available 09/09/2020 Do You Use Your Seat Belt Or Car Seat Routinely? Yes Information not available 09/09/2020 Do You Have Smoke And Carbon Monoxide Detectors In Your Home? Yes Information not available 09/09/2020 Are You Passively Exposed To Smoke? Yes Information no t available 09/09/2020 How Much Tobacco Do You Smoke? No Information not available 10/11/2018 General Stress Level Medium Information not available 06/09/2020 Has Tobacco Cessation Counseling Been Provided? No Information not available 10/11/2018 On What Date Was Tobacco Cessation Counseling Provided? 03/13/2025 Information not available 03/13/2025 How Many Years Have You Smoked Tobacco? 10 Information not available 11/29/2017 Sex: Unknown Functional Status Question Answer Note LastModified by Organizat ion Details LastModified Time Do you use any illicit or recreational drugs? Yes marijuana [email or web address] Information not available 05/02/2022 Do you or have you ever used any other forms of tobacco or nicotine? No Information not available 09/09/2020 What is your level of alcohol consumption? Occasional Rarely Information not available 10/24/2023 Do you or have you ever used smokeless tobacco? Never used smokeless tobacco Information not available 11/28/2019 Are you currently employed? No Information not available 02/10/2020 Are you able to care for yourself independently? Yes Information not available 02/10/2020 What is your occupation? Disability Information not available 02/10/2020 Do you or have you ever used e-cigarettes or vape? Never used electronic cigarettes Information not available 11/28/2019 What is your exercise level? None Trying to walk Information not available 10/24/2023 Mental Status Question Answer Note LastModified by Organization D etails LastModified Time Do you feel stressed (tense, restless, nervous, or anxious, or unable to sleep at night)? [id number] Information not available 04/27/2023 Family History Relationship Description Onset Age of [...] av ailable 11/29/2017 16:24:59 Brother Alcoholism Not khloe ilable 11/29/2017 16:23:02 Brother Attention deficit hyperactivit y disorder Not available 03/2018 16:23:11 Brother Depressive disorder Not available 11/19 16:23:31 Medical History Condition Response Coronary Artery Disease N Other N Atrial Fibrillation N High Blood Pressure Y Thyroid Problems N Kidney or Bladder Problems N Depression Y COPD N Blood Clots N GI Problems N Skin Problems N Anemia N Heart Attack ([place]) N Diabetes N Anxiety Disorder Y Muscle, Joint, or Bone Problems N Seizures/Epilepsy N Acid Reflux (GERD) Y Cancer N Stroke N Allergies N Asthma N High Cholesterol N Hepatitis N Liver [...] dose or 50 mcg/0.25mL dose 1 completed Alise [place], [place] [facility] 09/28/2020 14:46:54 COVID-19, mRNA, LNP-S, PF, 100 mcg/0.5mL dose or 50 mcg/0.25mL dose 1 completed Y[place]Y [place] [facility] 06/16/2021 11:11:29 COVID-19, mRNA, LNP-S, PF, 100 mcg/0.5mL dose or 50 mcg/0.25mL dose 1 [place] Y[place] [facility] 06/16/2021 11:11:36 influenza, intradermal, quadrivalent, preservative free 2 [place] YURY [place] [facility] 02/04/2022 15:29:52 Influenza, split virus, quadrivalent, PF 1 completed Not Available [facility] 03/13/2025 14:40:53 COVID-19, mRNA, LNP-S, bivalent, PF, 30 mcg/0.3 mL dose 3 [place] [facility] 08/16/2022 17:52:15 COVID-19, mRNA, LNP-S, PF, 50 mcg/0.5 mL 4 completed Neli Mcintyre [place] [facility] 03/25/2024 14:25:18 Influenza, high-dose, trivalent, PF 4 completed Neli Mcintyre [place] [facility] 03/25/2024 14:25:18 Influenza, high-dose, trivalent, PF 5 completed Alise Seth [place] [facility] 03/19/2025 09:50:41 Past Encounters Encounter ID Performer Location Encounter Start Date Encounter Closed Date Diagnosis/Indication Diagnosis SNOMED-CT Code Diagnosis ICD10 Code Diagnosis IMO Codes Diagnosis Note [id number] Denis Jin MD [facility] [address] [place] [address] 11/29/2017 15:44:29 11/29/2017 17:09:25 Osteoarthritis 506769186 M15.0 Lumbar radiculopathy 128 621169 M54.16 [id number] Denis Jin MD [facility] [address] [place] [address] 12/05/2017 15:30:57 12/05/2017 16:38:06 Sensorineural hearing loss of bilateral ears 923329791 H90.3 [id number] Denis Jin MD [facility] [address] [place] [address] 12/26/2017 16:40:32 12/26/2017 17:46:56 Degeneration of lumbar intervertebral disc 71685093 M51.36 Eruption 271471205 R21 [id number] Gilbert Jordan PA-C [facility] [address] [place] [address] 03/12/2018 11:30:10 03/12/2018 12:07:42 Administration of influenza vaccine 03075867 Z23 Generalize d anxiety disorder 00042487 F41.1 Spasm of back muscles 20 4896962 M62.532 [id number] Gilbert Jordan PA-C [facility] [address] [place] [address] 06/20/2018 10:43:25 06/20/2018 12:04:05 Pain of left hip joint 0734881401 56345 M25.552 Lumbar radiculopathy 128 883702 M54.16 Degenerati on of lumbar intervertebral disc 71602639 M51.36 Essential hypertension 97290763 I10 [id number] Gilbert Jordan PA-C [facility] [address] [place] [address] 07/04/2018 10:52:55 07/04/2018 11:47:14 Lumbar radiculopathy 571439365 M54.16 Essential hypertension 62416861 I10 [id number] Gilbert Jordan PA-C [facility] [address] [place] [address] 07/18/2018 10:45:54 07/18/2018 12:30:33 Essential hypertension 82498740 I10 [id number] Gilbert Jordan PA-C [facility] [address] [place] [address] 08/01/2018 10:43:14 08/01/2018 12:32:14 Essential hypertension 89683368 I10 Lumbar radiculopathy 128 493798 M54.16 [id number] Gilbert Jordan PA-C [facility] [address] [place] [address] 10/11/2018 14:04:49 10/11/2018 15:39:55 Essential hypertension 30937155 I10 Simple renal cyst 489018 09 N28.1 Primary insomnia 0547426 F51.01 [id number] Gilbert Jordan PA-C [facility] [address] [place] [address] 11/20/2018 09:54:30 11/20/2018 11:26:34 Pain of left hip joint 0925667758 72359 M25.552 Pain in left knee 274076 0128 70666 M25.332 [id number] Gilbert Jordan PA-C [facility] [address] [place] [address] 11/30/2018 11:32:44 11/30/2018 12:22:12 Pain of left hip joint 2350563769 62874 M25.447 [id number] Gilbert Jordan PA-C [facility] [address] [place] [address] 12/13/2018 11:29:07 12/13/2018 12:29:48 Arthritis of left hip 1169491444 564089 M13.694 [id number] Gilbert Jordan PA-C [facility] [address] [place] [address] 02/08/2019 11:53:39 02/11/2019 11:28:55 Anxiety 01953865 F41.1 Insomnia 739568523 G47.0 9 Arthritis of left hip 10 89074716 872817 M13.138 [id number] Gilbert Jordan PA-C [facility] [address] [place] [address] 09/23/2019 11:09:04 09/24/2019 10:39:03 Essential hypertension 57073584 I10 Generalize d anxiety disorder 97459593 F41.1 Osteoarthritis 915327581 M15.0 [id number] Gilbert Jordan PA-C [facility] [address] [place] [address] 10/01/2019 09:45:44 10/01/2019 15:30:44 Strain of right trapezius muscle 5672016967 5038790 S29.012A [id number] Gilbert Jordan PA-C [facility] [address] [place] [address] 10/31/2019 16:08:12 10/31/2019 17:06:38 Anxiety 55099612 F41.1 Cervical radiculopathy 59049109 M54.12 Localized, primary osteoarthritis 215538740 M15.0 Candidiasis of skin 4988 3006 B37.2 [id number] Gilbert Jordan PA-C [facility] [address] [place] [address] 11/28/2019 10:13:37 11/29/2019 06:28:46 Cervical radiculopathy 80015222 M54.12 Essential hypertension 70267692 I10 [id number] Gilbert Jordan PA-C [facility] [address] [place] [address] 02/10/2020 11:50:57 02/10/2020 12:40:36 Generalized anxiety disorder 92837408 F41.1 Chronic depression 27595 0009 F34.1 [id number] Gilbert Jordan PA-C [facility] [address] [place] [address] 02/18/2020 09:30:40 02/18/2020 19:32:43 [id number] Denis Jin MD [facility] [address] [place] [address] 02/24/2020 09:43:57 02/24/2020 13:31:00 Chronic depression 327793380 F34.1 [id number] Denis Jin MD [facility] [address] [place] [address] 06/09/2020 09:38:52 06/10/2020 09:02:56 Osteoporosis 38445729 M81.0 Screening for osteoporosis 906300003 Z13.457 [id number] Denis Jin MD [facility] [address] [place] [address] 09/09/2020 10:58:28 09/10/2020 14:37:01 Urinary tract infectious disease 75649987 N10 Essential hypertension 78963432 I10 Primary fi bromyalgia syndrome 36316112 M79.7 [id number] Denis Jin MD [facility] [address] [place] [address] 09/28/2020 14:41:01 10/05/2020 12:02:36 Anxiety 99100159 F41.1 Pain of mu ltiple joints 20142078 M25.59 Hypertensive disorder 38 195513 I10 Insomnia 602395338 G47.0 9 [id number] Denis Jin MD [facility] [address] [place] [address] 11/03/2020 09:29:11 11/04/2020 05:51:29 Gastroesophageal reflux disease without esophagitis 567252834 K21.9 [id number] Denis Jin MD [facility] [address] [place] [address] 11/30/2020 15:04:03 11/30/2020 16:04:31 Nausea 581003358 R11.0 Gastroesop hageal reflux disease 321521045 K21.9 Anxiety 86534844 F41.1 Hypertensive disorder 38 801327 I10 Esophageal dysphagia 408 08869 R13.19 Nausea and vomiting 1693 2000 R11.2 Essential hypertension 98262810 I10 Chronic depression 25906 0009 F34.1 [id number] Gilbert Jordan PA-C [facility] [address] [place] [address] 06/16/2021 10:45:30 06/16/2021 11:52:47 Hypertensive disorder 55219698 I10 Pain of ri ght hip joint 7090329698 58812 M25.551 Female uri nary stress incontinence 79372156 N39.3 [id number] [facility] [address] [place] [address] 10/01/2021 16:24:58 10/01/2021 17:00:18 Primary fibromyalgia syndrome 71022603 M79.7 Fatigue 16519297 R53.83 [id number] Gilbert Jodran PA-C [facility] [address] [place] [address] 05/02/2022 10:51:13 05/02/2022 11:58:01 Long-term drug therapy 697806445 Z79.899 Obesity 870890122 E66.9 Generalize d osteoarthritis 550508556 M15.0 Lumbar radiculopathy [address] [facility] th examination 592983854 Z00.00 [id number] Gilbert Jordan PA-C [facility] [address] [place] [address] 08/02/2022 17:22:12 08/03/2022 12:07:11 Edema of lower extremity 781201377 R60.0 Idiopathic peripheral neuropathy 55086380 G60.8 Overweight [id number] E66 .3 [id number] Gilbert Jordan PA-C [facility] [address] [place] [address] 08/16/2022 17:23:48 08/17/2022 12:42:32 Administration of SARS-CoV-2 mRNA vaccine 3972360871 Z23 [id number] Gilbert Jordan PA-C [facility] [address] [place] [address] 09/22/2022 11:21:17 09/23/2022 10:31:33 Varicose veins of lower extremity 19028553 I83.91 Overweight 072572980 E66 .3 [id number] Denis Jin MD [facility] [address] [place] [address] 01/02/2023 09:55:00 01/03/2023 11:17:41 Lumbar radiculopathy 264331017 M54.16 Osteoarthritis 624509666 M15.0 Cervical radiculopathy 27403275 M54.12 Insomnia 624203219 G47.0 9 Overweight 983149819 E66 .3 Essential hypertension 54043962 I10 [id number] Gilbert Jordan PA-C [facility] [address] [place] [address] 04/27/2023 11:22:22 05/04/2023 14:03:17 Long-term drug therapy 608408432 Z79.899 Bilateral cataracts 9572 2003 H25.011 Family his tory of coronary arteriosclerosis 513938103 Z82.49 Pre-surger y evaluation 756154246 Z01.818 Generalize d anxiety disorder 61857855 F41.1 [id number] Gilbert Jordan PA-C [facility] [address] [place] [address] 08/31/2023 15:31:07 09/07/2023 15:15:28 Mixed anxiety and depressive disorder 916205745 F41.8 [id number] Denis Jin MD [facility] [address] [place] [address] 09/27/2023 14:47:22 10/02/2023 14:56:38 Acute urinary tract infection 293672104 N39.0 [facility] 736734379 E66 .3 [id number] Denis Jin MD [facility] [address] [place] [address] 10/09/2023 16:38:48 10/17/2023 12:49:36 Acute urinary tract infection 089717864 N39.0 [id number] Denis Jin MD [facility] [address] [place] [address] 10/24/2023 17:54:28 10/31/2023 20:32:49 Urinary incontinence 882391216 N39.46 Bilateral foot congenital pes cavus 5137703874 1484682 Q66.71 [id number] Gilbert Jordan PA-C [facility] [address] [place] [address] 01/30/2024 17:32:05 01/31/2024 09:02:55 Pain in right foot 3418879280 52995 M79.671 Overweight 972174088 E66 .3 [id number] Denis Jin MD [facility] [address] [place] [address] 03/25/2024 14:09:13 03/26/2024 11:31:06 Administration of SARS-CoV-2 mRNA vaccine 0370366012 Z23 [id number] Denis Jin MD [facility] [address] [place] [address] 04/25/2024 16:47:37 04/30/2024 11:06:48 Long-term drug therapy 684748794 Z79.899 Lumbar radiculopathy 128 064228 M54.16 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 Overweight 947439666 E66 .3 [id number] Denis Jin MD [facility] [address] [place] [address] 07/09/2024 15:49:15 07/15/2024 09:50:36 Candidiasis of skin 11319609 B37.2 Screening mammography 24 030220 Z12.31 Bilateral tinnitus 97323 68376 102 H93.13 Overweight 678404199 E66 .3 Gastroesop hageal reflux disease without esophagitis 177301020 K21.9 [id number] Denis Jin MD [facility] [address] [place] [address] 08/05/2024 10:38:13 08/06/2024 10:32:14 Tarsal tunnel syndrome 44689000 G57.51 Pain in right foot 32679 92302 93325 M79.671 Overweight 544336012 E66 .3 [id number] Denis Jin MD [facility] [address] [place] [address] 09/18/2024 11:46:28 09/19/2024 13:01:31 Abscess of right axilla 4422788357 0202898 L02.411 812682 Lumbar radiculopathy 128 076580 M54.16 93063 Essential hypertension 16074581 I10 98257 Obese class II 949800233 1 29311 E66.812 47370500 discussed weight loss Candidiasis of skin 4988 3006 B37.2 [id number] Denis Jin MD [facility] [address] [place] [address] 12/04/2024 11:51:47 12/05/2024 11:25:04 Essential hypertension 40063429 I10 91062 controlled Mixed anxi ety and depressive disorder 493436212 F41.8 812855 Lumbar radiculopathy 128 908548 M54.16 31841 Obese class II 562067972 1 97930 E66.812 3578516617 discussed weight loss [id number] Denis Jin MD [facility] [address] [place] [address] 01/27/2025 15:06:51 01/28/2025 09:30:05 Dysuria 74970446 R30.0 18335 Bilateral lower limb edema 460764017 R60.0 5627430931 Obese class II 113475277 1 90329 E66.812 E66.3 2748672675 discussed weight loss [id number] Gilbert Jordan PA-C [facility] [address] [place] [address] 03/13/2025 14:40:04 03/21/2025 11:13:52 Active immunization 39554791 Z23 2990683 Lumbosacra l spondylosis with radiculopathy 100238597 M47.27 64545685 Cervical radiculopathy 66005290 M54.12 Health Concerns Section Related Observation LastModified by Organization Detai ls LastModified Time None Recorded Concern Status LastModified by Organization Details LastModified Time None Recorded Advance Directives Directive None Recorded Payers Insurance Date Sequence Insurance Name Policy Number Policy Ignacio Covered Member ID Ignacio Member ID Guarantor Name 07/04/2024 2 [place] WHEN [place] OR MEDICARE REPLACEMENT PRIMARY) Janice Chavez [id number] Janice Chavez 07/04/2024 2 [place] Janice Chavez [id number] Janice Chavez 07/04/2024 [place] FQHC Janice Chavez [id number] Janice Chavez 07/04/2024 1 [facility] (MEDICARE REPLACEMENT/AD VANTAGE - HMO) [id number] Janice Chavez [id number] Janice Chavez 07/04/2024 [place] Janice Chavez [id number] Janice Chavez 04/27/2023 SLIDING FEE SCHEDULE - DISCOUNT Janice Chavez 07/04/2024 1 [place] Janice Chavez [id number] Janice Chavez 03/21/2025 1 [employer] (MEDICARE REPLACEMENT/AD VANTAGE - PPO) Janice Chavez [id number] Janice Chavez 01/30/2023 2 *SELF PAY* Tung Chavez 02/28/2025 SLIDING FEE SCHEDULE - DISCOUNT Janice Chavez 07/04/2024 1 [employer] (MEDICARE REPLACEMENT/AD VANTAGE - PPO) Janice Chavez [id number] Janice Chavez Notes Date Note Type Note Provider Name and Address Organization Details Recorded Time 08/05/2024 text/html ROS as noted in the HPI has a sharp pain in top of rt foot with a knot that swells .also has tingling in rt foot..worsens with movement.. Gilbert Jordan PA-C Attn: [address] [place], [address], [facility] 08/05/2024 11:20:13 09/18/2024 text/html ROS as noted in the HPI rt axillary sub cu mass..just appeared..did poke it and got some blood and pus out of it..blood pressure good..no complaints otherwise...3 month vs controls all is well.. Gilbert Jordan PA-C Attn: [address] [place], [address], [facility] 09/18/2024 12:19:23 12/04/2024 text/html ROS as noted in the HPI 3 month vs controls...had recent surgery on bilateral feet/ankles for pain relief..all is well...blood pressure is well controlled.. Gilbert Jordan PA-C Attn: [address] [place], [address], [place] [facility] 12/04/2024 12:21:36 01/27/2025 text/html ROS as noted in the HPI having flank pain also complains off on swelling in bilateral feet..currently not swollen Gilbert Jordan PA-C Attn: Accounting,[address] [facility], [place], [address], [facility] 01/27/2025 15:49:20 03/13/2025 text/html ROS as noted in the HPI 3 month vs controls...also legs swell..after she puts them they go down..is trying to walk and workout but it hurts her body..needs gabapentin refilled..also feet are tingling and painful as well...also hx of fusion in lumbar spine.. Gilbert Jordan PA-C Attn: Accounting,[address] [facility], [place], [address], [facility] 03/13/2025 15:07:29 OBGyn Episode No OBEpisode recorded.
--- OUTSIDE RECORDS SUMMARY | 2025-03-29 10:06 | XMS_ITS | Clinical Summary ---
Author Organization [facility] Address [address] [place] [address] Care Team Providers Care Athletic Equipment Manager Name Role Phone Josue Jordan Primary Care Provider [phone] Jalen Gibbs MD Unavailable [phone] Allergies Active Allergy Reactions Criticality Noted Date [...] 05/12/2021 Assessment & Plan (05/12/2021 4:41 PM EDITORIAL ASSISTANT): This is likely secondary to her previous neck surgery. Overall this has to be addressed with diet modifications and maintaining soft diet. No specific GI intervention will be of great help. Chronic nausea 12/16/2020 Gastroesophageal reflux disease 12/16/2020 Assessment & Plan (05/12/2021 4:41 PM EDITORIAL ASSISTANT): Symptoms are much better at this time. [...] on file Legal Sex Female 7:14 AM EDITORIAL ASSISTANT Gender Identity Female 11/29/2019 6:03 PM CDT Sexual Orientation Not on file Last Filed Vital Signs Vital Sign Reading Time Taken Comments Blood Pressure 141/89 11/24/2022 1:57 PM CDT Pulse 79 10/19/2022 3:10 PM CDT Temperature 36.9 C (98.5 F) 04/07/2021 3:01 PM EDITORIAL ASSISTANT Respiratory Rate 18 04/29/2021 11:32 AM EDITORIAL ASSISTANT Oxygen Saturation 93% 10/19/2022 3:10 PM CDT Inhaled Oxygen Concentration - - Weight 103.4 kg (228 lb) 10/19/2022 3:10 PM CDT Height 167.6 cm (5' 6) 10/19/2022 3:10 PM CDT Body Mass Index 36.8 10/19/2022 3:10 PM CDT Plan of Treatment Health Maintenance Due Date Last Done Comments Breast Cancer Screening-Mammogram 1960 Colon Cancer Screening-Colonoscopy 1960 Depression Screening 1960 Hepatitis C Screening 1960 Osteoporosis Screening-Bone Density Scan 1958 DTaP/Tdap/Td Vaccine (1 - Tdap) 1969 Hepatitis B Screening 1976 Pneumococcal vaccine 65+ (1 of 2 - PCV) 1977 Zoster Vaccine (1 of 2) 2008 Fall Risk Assessment 04/07/2022 04/07/2021 Well Visit 65+ 12/28/2023 Covid-19 Vaccine (3 - 2024-2 6 season) 2025 10/13/2020, 09/15/2020 Influenza Vaccine (#1) 2025 , 02/05/2020, 02/04/2020, Additional history exists Medical Devices Implanted Type Area Virtual Assistant For Advertisers Device Identifier Shelf Expiration Date Model / Serial / Lot Abyrx Os-201 Hemasorb Os-Spa [place] Wax 2gm Bone Sterile - [id number] Implanted:Qty: 1 on 07/21/2020 by Jalen Gibbs MD at [facility] N/A: Spine Cervical Abyrx 02/18/2021 OS-201 / / [id number] [employer] 700-025 I Factor Allograft Putty Syringe Graft 2.5cc Bone - [id number] Implanted:Qty: 1 on 07/21/2020 by Jalen Gibbs MD at [facility] N/A: Spine Cervical [employer] [id number] 03/21/2023 700-025 / / [id number] Lore Spine Cerv 0 Deg W/Hole 7mm Implanted:Qty: 1 on 07/21/2020 by Jalen Gibbs MD at [facility] N/A: Spine Cervical Lore [employer] [id number] 06/26/2024 / [id number] / Description:ID: [id number] Code: [id number] K2m [facility] [id number] Od4 Mm L12 Mm Self Tapping Spine Screw Bone Dark Blue - [id number] Implanted:Qty: 4 on 07/21/2020 by Jalen Gibbs MD at [facility] N/A: Spine Cervical [employer] [id number] / / Lore Spine [id number] 22mm 1 Level Constrain Spine Cervical Plate Bone - [id number] Implanted:Qty: 1 on 07/21/2020 by Jalen Gibbs MD at [facility] N/A: Spine Cervical [employer] [id number] / / Insurance IDPA IDPA Advance Directives For more information, please contact: [phone] * Full Code (Latest Code Status on File) Date Activated Date Inactivated Comments 04/07/2021 1:26 PM 04/07/2021 9:05 PM * Full Code Date Activated Date Inactivated Comments 04/07/2021 1:26 PM 04/07/2021 1:26 PM Care Teams Athletic Equipment Manager Relationship Specialty Start Date End Date Josue Jordan PA [address] [place] [address] PCP - General 01/25/19 Jalen Gibbs MD [address] [facility] [address] [place] [address] Consulting Physician Neurosurgery 07/21/20
== END 2025-03-29 10:01 | disposition home or self-care (01) ==
LOC: CHSIMG 10:02
PROVIDERS: PCP Physician Assistant; Visit Provider Physician Assistant
DX: M47.27 Other spondylosis with radiculopathy, lumbosacral region (principal); M48.54XA Collapsed vertebra, not elsewhere classified, thoracic region, initial encounter for fracture; M43.06 Spondylolysis, lumbar region; Z98.1 Arthrodesis status
CPT/HCPCS: 72148